=== PATIENT | female | born 1975 | race Caucasian/White ===

== ENCOUNTER 2023-06-21 18:48 | Emergency (ER) | payer OTHER, SELFPAY ==
[2023-06-21] VITALS (20 sets, daily range): BP systolic 144–190; BP diastolic 87–106; PULSE 71–84; RESP 12–26; TEMP 37.1; O2SAT 96–99; BMI 65.1
--- NOTE | 2023-06-21 18:59 | CT_ITS ---
The [address] [address] Patient Name: FERN JAY MRN: [id number] date: 1975 Sex: F Assigned Patient Location: ER Current Patient Location: ER Accession/Order Number: [id number] Exam Date: 06/21/2023 20:31 Report Date: 06/21/2023 21:24 At the request of: ABAD CARR Procedure: CT abdomen pelvis w con EXAM: CT SCAN ABDOMEN AND PELVIS WITH IV CONTRAST DATE: 06/21/2023 8:31 PM EDT HISTORY: LUQ/ Epigastric Pain in a 47-year-old female COMPARISON: CT abdomen pelvis without.09/15/2022 CT scan of the pelvis 12/30/2018 TECHNIQUE: CT examination of the abdomen and pelvis was performed following the intravenous administration of IV contrast. CT dose lowering techniques were used, to include: automated exposure control, adjustment for patient size, and/or use of iterative reconstruction. Contrast: 100 ml Isovue 370 FINDINGS: Gyro Compass Tester/ Lines and Tubes: Post op changes are demonstrated in the right upper quadrant and the lumbar spine. Lower Chest: Normal Free Air: None. Liver: The liver is enlarged measures 20 cm. In the posterior right lobe of the liver there is a hypoechoic masslike area that measures 55 x 45 cm. Gallbladder: Removed Common Bile Duct: Normal Pancreas: Normal Spleen: Enlarged with an area decreased attenuation measuring 16 mm. Adrenal Glands: Right: Normal Left: Normal Kidneys: Right Kidney: Normal. Right Ureter: Normal. Left Kidney: Normal. Left Ureter: Normal. GI Tract: Distal esophagus in FOV: Normal. Stomach: Normal Small Bowel: Normal Appendix: No secondary signs for acute appendicitis. Surgical clips seen in the right lower quadrant. Large Bowel: Normal Mesentery/Peritoneum: Normal Vasculature: Aorta: Normal. IVC: Normal. Mur[place] Vein: Normal. Retroperitoneum: Normal Abdominal/Pelvic Wall: Normal Bladder: Decompressed Reproductive: Normal Musculoskeletal: Postoperative changes seen at L4-L5 with a disc spacer. Free Fluid: None. CT/CT abdomen pelvis w con IMPRESSION: 1. Hepatosplenomegaly. Please correlate with patient's LFTs. 2. Posterior right lobe of the liver demonstrates a hypodense area of decreased attenuation which in comparison to prior exam from 2019 is relatively stable. Allowing for bolus timing this most likely represents a cystic lesion and/or hemangioma. Please correlate with patient's medical history. MRI using multiphasic liver protocol would help better delineate. 3. Cholecystectomy. 4. Fluid attenuating region in the posterior left spleen is stable compared to prior exam from 2019. Electronically authenticated by: RAEANN TRIPATHI Date: 06/21/2023 21:24
--- NOTE | 2023-06-21 19:02 | ECG_ITS ---
The [facility] Test Date: 2023-06-21 Pat Name: FERN JAY Department: Room: - Gender: Female Rn Gynecology: : 1975 Requested By: ADIEL LUX Order Number: [id number] Reading MD: BELLA COON Measurements Intervals [place] Rate: 70 P: 3 MO: 170 QRS: -15 QRSD: 94 T: -6 QT: 380 QTc: 400 Interpretive Statements [address]/T wave changes 9110 normal ECG No previous ECG available for comparison Electronically Signed On 06-22-2023 6:52:58 EDT by BELLA COON
--- NOTE | 2023-06-21 19:06 | ED_ITS ---
HPI - Abdominal Pain General Chief Complaint: Abdominal Pain Stated Complaint: ABDOMINAL PAIN Time Seen by Provider: 06/21/23 18:51 Source: patient Mode of arrival: walk-in History of Present Illness HPI narrative: 47-year-old female to the emergency department with chief complaint of left upper abdominal pain. She reports is been ongoing for three days at its current severity but has been ongoing on and off since at least . She reports that she was seen for this at that time and worked up with endoscopy and imaging and had no findings. She reports she was lost to follow-up due to [place]. She reports is recently started acting up again prompting her Emergency Department visit temitopearlyn. She reports that the pain is constant, always there. There are no aggravating or alleviating factors. There is nausea without vomiting. She believes she may have had a small amount of blood in her stool this morning. She reports normal bowel movements. She denies any fever, sweats, chills. She is not on any blood thinning medications. There is no NSAID or steroid use. Patient has an appointment with Dr. Salgado at [facility] on for this complaint. Related Data Home Medications Medication Instructions Recorded Confirmed alprazolam 0.5 mg tablet 0.5 mg PO TID PRN anxiety 06/21/23 06/21/23 amitriptyline 50 mg tablet 50 mg PO QPM 06/21/23 06/21/23 benazepril 20 mg tablet 20 mg PO DAILY 06/21/23 06/21/23 dextroamphetamine-amphetamine ER 15 mg PO DAILY 06/21/23 06/21/23 15 mg 24hr capsule,extend release gabapentin 300 mg capsule 300 mg PO QPM 06/21/23 06/21/23 levothyroxine 100 mcg tablet 100 mcg PO QAM 06/21/23 06/21/23 metoprolol tartrate 50 mg tablet 75 mg PO BID 06/21/23 06/21/23 mirabegron 50 mg tablet,extended 50 mg PO DAILY 06/21/23 06/21/23 release 24 hr (Myrbetriq) naloxone 4 mg/actuation nasal spray 4 mg intranasal Q2M PRN opioid 06/21/23 06/21/23 overdose omeprazole 40 mg capsule,delayed 40 mg PO DAILY 06/21/23 06/21/23 release oxycodone 20 mg tablet 20 mg PO Q4H PRN pain 06/21/23 06/21/23 oxycodone-acetaminophen 7.5 mg-325 1 tab PO TID PRN pain 06/21/23 06/21/23 mg tablet promethazine 25 mg tablet 25 mg PO TID PRN nausea and 06/21/23 06/21/23 vomiting tizanidine 4 mg tablet 4 mg PO DAILY PRN muscle spasticity 06/21/23 06/21/23 Previous Rx's Medication Instructions Recorded dicyclomine 20 mg tablet 20 mg PO QID PRN abdominal pain 06/21/23 #14 tabs pantoprazole 40 mg tablet,delayed 40 mg PO BID 14 days #28 tabs 06/21/23 release sucralfate 1 gram tablet (Carafate) 1 g PO TID #21 tabs 06/21/23 Allergies Allergy/AdvReac Type Severity Reaction Status Date / Time ciprofloxacin [From Cipro] Allergy Severe Verified 06/21/23 18:58 fluoxetine [From Prozac] Allergy Severe Verified 06/21/23 18:58 ketorolac [From Toradol] Allergy Severe Verified 06/21/23 18:58 ondansetron [From Zofran] Allergy Severe Verified 06/21/23 18:58 prochlorperazine Allergy Severe Verified 06/21/23 18:58 [From Compazine] Review of Systems ROS Status of ROS 10 or more systems reviewed and unremarkable except as noted in history and below Exam Narrative Exam Narrative: VITALS: I have reviewed the triage vital signs. GENERAL: Morbidly obese adult female in no acute distress. NEURO: Alert and oriented. Moves all extremities. Face is symmetric and expressive. EYES: PERRL. No scleral icterus or conjunctival injection. No discharge. HENT: Normocephalic, atraumatic. Hearing is grossly intact. Nares grossly patent and without discharge. Mucous membranes moist. NECK: No JVD. Patient moves neck without restriction. CARDIO: Rhythm regular. Normal rate. No murmur, rub, or gallop. Pulses equal bilaterally in the upper and lower extremity. No lower extremity edema. PULM: Lungs clear to auscultation in all lord. No wheezes, rales, or rhonchi. No conversational dyspnea. No splinting, stridor, or accessory muscle use. GI/: Abdomen is soft/ Epi/LUQ pain. No rebound or guarding. Normoactive bowel sounds. EXTREMITIES: Symmetric muscle bulk. No joint swelling. No clubbing, cyanosis, or deformity. SKIN: Warm and dry. Normal turgor. No rash or lesions appreciated. PSYCH: Mood, affect, and interaction is appropriate to the setting. Constitutional Vital Signs, click to edit/add: Last Vital Signs Temp 98.7 F 06/21/23 18:51 Pulse 74 06/21/23 21:00 Resp 21 06/21/23 21:00 BP 168/87 H 06/21/23 21:00 Pulse Ox 97 06/21/23 21:00 O2 Del Method Room Air 06/21/23 18:51 Course Vital Signs Vital signs: Vital Signs Temperature 98.7 F 06/21/23 18:51 Pulse Rate 84 06/21/23 18:51 Respiratory Rate 22 06/21/23 18:51 Blood Pressure 190/106 H 06/21/23 18:51 Pulse Oximetry 99 06/21/23 18:51 Oxygen Delivery Method Room Air 06/21/23 18:51 Temperature 98.7 F 06/21/23 18:51 Pulse Rate 74 06/21/23 21:00 Respiratory Rate 21 06/21/23 21:00 Blood Pressure 168/87 H 06/21/23 21:00 Pulse Oximetry 97 06/21/23 21:00 Oxygen Delivery Method Room Air 06/21/23 18:51 MDM - Abdominal Pain MDM Narrative Medical decision making narrative: Number and Complexity of Problems Differential Diagnosis: ACS, pancreatitis, gastritis, gastroparesis MDM Data External documents reviewed: Not applicable My EKG interpretation: Interpreted, as below My CT interpretation: Reviewed, as below My X-ray interpretation: Not applicable My Ultrasound interpretation: Not applicable Decision rules/scores evaluated: Not applicable Discussed with: Not applicable Treatment and Disposition ED Course: 47-year-old female with acute on chronic upper abdominal pain. Vital stable, the patient is afebrile. Mild tenderness in the abdomen without peritonitis. Medications ordered for comfort as below. CT imaging. Patient agrees with this plan. Laboratory reviewed and noted. She does have some hematuria which is mentioned to the patient and follow-up with her doctor. Labwork otherwise without major abnormalities. CT scan shows her known splenic lesion and her hepatosplenomegaly. No acute findings today to explain her symptoms. Patient reexamined. Her vitals remained stable. Her abdomen remains benign. I recommended she keep her upcoming appointment with gastrointestinal this week. We'll discontinue her Prilosec and put her on Protonix twice a day dosing. Carafate and Bentyl were prescribed. I suspect there may be a gastritis or ulcer component to her presentation today based on the symptomology. Return precautions were discussed. All questions were answered. The patient agrees with this plan. The patient was discharged home. Shared decision making: As above Code status: Not addressed during this visit Lab Data Labs: Lab Results 06/21/23 06/21/23 Range/Units 19:20 19:36 WBC 11.4 H (4.0-11.0) 10^3/uL RBC 5.40 (4.20-5.40) 10^6/uL Hgb 13.7 (12.0-16.0) g/dL Hct 44.0 (36.0-48.0) % MCV 81.5 (81.0-99.0) fL MCH 25.4 L (26.7-34.0) pg MCHC 31.1 (29.9-35.2) g/dL RDW 15.2 H (11.0-15.0) % Plt Count 308 (150-450) 10^3/uL MPV 8.8 L (9.5-13.5) fL Neut % (Auto) 61.5 (43.0-75.0) % Lymph % (Auto) 31.5 (20.5-60.0) % [place] % (Auto) 5.3 (1.7-12.0) % Eos % (Auto) 1.0 (0.9-7.0) % Baso % (Auto) 0.3 (0.2-2.0) % Neut # (Auto) 7.0 H (1.4-6.5) 10^3/uL Lymph # (Auto) 3.6 (1.2-3.8) 10^3/uL [place] # (Auto) 0.6 (0.3-0.8) 10^3/uL Eos # (Auto) 0.1 (0.0-0.7) 10^3/uL Baso # (Auto) 0.0 (0.0-0.1) 10^3/uL Abs Immat Gran (auto) 0.05 H (0.00-0.03) 10^3/uL Imm/Tot Granulo (auto) 0.4 (0.0-0.5) % Sodium 138 (136-145) mmol/L Potassium 3.9 (3.5-5.1) mmol/L Chloride 104 (98-107) mmol/L Carbon Dioxide 25.9 (21.0-32.0) mmol/L Anion Gap 12.0 BUN 19.0 H (7.0-18.0) mg/dL Creatinine 0.76 (0.55-1.02) mg/dL Est GFR ( Amer) >60 (>=60) Est GFR (Non-Af Amer) >60 (>=60) BUN/Creatinine Ratio 25.0 Glucose 97 (74-106) mg/dL Calcium 8.7 (8.5-10.1) mg/dL Total Bilirubin 0.2 (0.2-1.0) mg/dL AST 14 L (15-37) U/L ALT 28 (14-59) U/L Alkaline Phosphatase 77 (46-116) U/L Troponin I High Sens 8.8 (4.0-51.3) pg/mL Total Protein 7.6 (6.4-8.2) g/dL Albumin 3.3 L (3.4-5.0) g/dL Globulin 4.3 g/dL Albumin/Globulin Ratio 0.8 Lipase 21.0 (16.0-77.0) U/L Urine Color Yellow (YELLOW) Urine Clarity Clear (CLEAR) Urine pH 5.0 (5.0-9.0) Ur Specific [place] >=1.030 A (1.005-1.025) Urine Protein Trace (NEG/TRACE) mg/dL Urine Glucose (UA) Negative (NEGATIVE) mg/dL Urine Ketones Negative (NEGATIVE) mg/dL Urine Occult Blood Large A (NEGATIVE) Urine Nitrite Negative (NEGATIVE) Urine Bilirubin Negative (NEGATIVE) Urine Urobilinogen 1.0 (0.2-1.0) EU/dL Ur Leukocyte Esterase Negative (NEGATIVE) Urine RBC 50-75 A (0-2) #/HPF Urine WBC 0-2 A (NONE SEEN) #/HPF Ur Squamous Epith Cells Many A (NONE/RARE) #/LPF Urine Crystals None seen (None Seen) #/HPF Urine Bacteria Moderate A (NONE SEEN) #/HPF Urine Casts None seen (NONE SEEN) #/LPF Urine Mucus Small A (NONE SEEN) Ur Culture Indicated? Yes Discharge Plan Discharge Chief Complaint: Abdominal Pain Clinical Impression: Abdominal pain Time of Disposition Decision: 22:11 Condition: Good Mode of Transportation: Private Vehicle Prescriptions / Home Meds: New sucralfate [Carafate] 1 gram tablet 1 g PO TID Qty: 21 0RF pantoprazole 40 mg tablet,delayed release (DR/EC) 40 mg PO BID 14 Days Qty: 28 0RF dicyclomine 20 mg tablet 20 mg PO QID PRN (Reason: abdominal pain) Qty: 14 0RF No Action alprazolam 0.5 mg tablet 0.5 mg PO TID PRN (Reason: anxiety) amitriptyline 50 mg tablet 50 mg PO QPM benazepril 20 mg tablet 20 mg PO DAILY dextroamphetamine-amphetamine 15 mg capsule,extended release 24hr 15 mg PO DAILY gabapentin 300 mg capsule 300 mg PO QPM levothyroxine 100 mcg tablet 100 mcg PO QAM metoprolol tartrate 50 mg tablet 75 mg PO BID Myrbetriq 50 mg tablet extended release 24 hr 50 mg PO DAILY naloxone 4 mg/actuation spray,non-aerosol 4 mg INTRANASAL Q2M PRN (Reason: opioid overdose) omeprazole 40 mg capsule,delayed release(DR/EC) 40 mg PO DAILY oxycodone 20 mg tablet 20 mg PO Q4H PRN (Reason: pain) oxycodone-acetaminophen 7.5-325 mg tablet 1 tab PO TID PRN (Reason: pain) promethazine 25 mg tablet 25 mg PO TID PRN (Reason: nausea and vomiting) tizanidine 4 mg tablet 4 mg PO DAILY PRN (Reason: muscle spasticity) Print Language: Monegasque Instructions: Gastritis (ED) Additional Instructions: Follow-up with Dr. Salgado as planned on . Stop Prilosec and start Protonix. Stand Alone Forms: Portal Instructions Referrals: Mary Ellen Fairbanks MD [Primary Care Provider] - 1 week
[2023-06-21] MEDS: 0.9 % SODIUM CHLORIDE 1,000 ML 999 ML IV (19:32)
[2023-06-21] MEDS: PROMETHAZINE HCL 25 MG/ML VIAL 12.5 MG IV (19:32)
[2023-06-21] MEDS: FAMOTIDINE/PF 20 MG/2 ML VIAL IV (19:32)
[2023-06-21] MEDS: MORPHINE SULFATE 2 MG/ML SYRINGE 6 MG IV (19:37)
[2023-06-21 19:46] LABS: Basophils Percent Auto 0.3 % (0.2-2.0); Eosinophils Absolute Auto 0.1 10^3/uL (0.0-0.7); Hemoglobin 13.7 g/dL (12.0-16.0); Immature Granulocytes Abs Auto 0.05 10^3/uL (0.00-0.03); Immature Granulocytes Pct Auto 0.4 % (0.0-0.5); Lymphocytes Absolute Auto 3.6 10^3/uL (1.2-3.8); Lymphocytes Percent Auto 31.5 % (20.5-60.0); Mean Corpuscular HGB Conc 31.1 g/dL (29.9-35.2); Mean Corpuscular Hemoglobin 25.4 pg (26.7-34.0); Mean Corpuscular Volume 81.5 fL (81.0-99.0); Mean Platelet Volume 8.8 fL (9.5-13.5); Monocytes Absolute Auto 0.6 10^3/uL (0.3-0.8); Monocytes Percent Auto 5.3 % (1.7-12.0); Neutrophils Percent Auto 61.5 % (43.0-75.0); Platelet Count 308 10^3/uL (150-450); Red Cell Distribution Width 15.2 % (11.0-15.0); White Blood Count 11.4 10^3/uL (4.0-11.0)
[2023-06-21 19:47] LABS: Bilirubin Urine NEGATIVE (NEGATIVE); Blood Urine LARGE (NEGATIVE); Clarity Urine CLEAR (CLEAR); Color Urine YELLOW (YELLOW); Glucose Urine UA NEGATIVE (NEGATIVE); Ketones Urine NEGATIVE (NEGATIVE); Leukocyte Esterase Urine NEGATIVE (NEGATIVE); Nitrite Urine NEGATIVE (NEGATIVE); Protein Urine TRACE mg/dL (NEG/TRACE); Specific Gravity Urine >=1.030 (1.005-1.025); Urine Microscopic Indicated YES
[2023-06-21 19:56] LABS: Bacteria Urine MODERATE #/HPF (NONE SEEN); Cast Seen? NONE SEEN #/LPF (NONE SEEN); Crystals Seen? None Seen #/HPF (None Seen); Mucus Urine SMALL (NONE SEEN); RBC Urine 50-75 #/HPF (0-2); Squamous Epithelial Cell Urine MANY #/LPF (NONE/RARE); Urine Culture Indicated YES; WBC Urine 0-2 #/HPF (NONE SEEN)
[2023-06-21 20:08] LABS: Alanine Aminotransferase 28 U/L (14-59); Albumin Globulin Ratio 0.8; Albumin Level 3.3 g/dL (3.4-5.0); Alkaline Phosphatase 77 U/L (46-116); Aspartate Amino Transferase 14 U/L (15-37); Bilirubin Total 0.2 mg/dL (0.2-1.0); Calcium 8.7 mg/dL (8.5-10.1); Carbon Dioxide 25.9 mmol/L (21.0-32.0); Chloride 104 mmol/L (98-107); Estimated GFR (African America >60 (>=60); Estimated GFR (Non-African Ame >60 (>=60); Globulin 4.3 g/dL; Glucose 97 mg/dL (74-106); Potassium 3.9 mmol/L (3.5-5.1); Sodium 138 mmol/L (136-145); Total Protein 7.6 g/dL (6.4-8.2); Troponin I High Sensitivity 8.8 pg/mL (4.0-51.3)
--- NOTE | 2023-06-21 20:09 | PC.NURSE ---
pt presents to ED because patient states that for the last 3 days she has had severe left upper quadrant abdominal pain. pt d/o nausea but no vomiting. pt states there was blood in her urine today, has hx of kidney stones, normal bowel movements. patient states that she had this happen before in 2018/2019 and had imaging and blood work done and was told everything looked good and that she had a hernia. pt does have appointment with GI doctor out of [place] in 2 days.
[2023-06-21] MEDS: MORPHINE SULFATE 4 MG/ML VIAL IV (21:01)
== END 2023-06-21 22:23 | disposition home or self-care (01) ==
PROVIDERS: Emergency Provider Student in an Organized Health Care Education/Training Program; PCP Family Medicine
DX: R10.9 Unspecified abdominal pain (principal); G89.29 Other chronic pain; E66.01 Morbid (severe) obesity due to excess calories; Z68.44 Body mass index [BMI] 60.0-69.9, adult; Z79.899 Other long term (current) drug therapy; Z79.890 Hormone replacement therapy
CPT/HCPCS: 36415; 74177; 80053; 81001; 83690; 84484; 85025; 87086; 93005; 96374; 96375; 96376; 99285; Q9967

== ENCOUNTER 2023-07-28 14:26 | Outpatient (OUT) | payer OTHER, SELFPAY ==
[2023-07-28 14:59] LABS: Basophils Percent Auto 0.2 % (0.2-2.0); Eosinophils Absolute Auto 0.1 10^3/uL (0.0-0.7); Eosinophils Percent Auto 0.7 % (0.9-7.0); Hematocrit 44.4 % (36.0-48.0); Hemoglobin 13.4 g/dL (12.0-16.0); Immature Granulocytes Abs Auto 0.04 10^3/uL (0.00-0.03); Immature Granulocytes Pct Auto 0.4 % (0.0-0.5); Lymphocytes Absolute Auto 3.1 10^3/uL (1.2-3.8); Lymphocytes Percent Auto 28.9 % (20.5-60.0); Mean Corpuscular HGB Conc 30.2 g/dL (29.9-35.2); Mean Platelet Volume 8.7 fL (9.5-13.5); Monocytes Absolute Auto 0.6 10^3/uL (0.3-0.8); Monocytes Percent Auto 5.8 % (1.7-12.0); Neutrophils Absolute Auto 6.9 10^3/uL (1.4-6.5); Platelet Count 284 10^3/uL (150-450); Red Blood Count 5.35 10^6/uL (4.20-5.40); Red Cell Distribution Width 15.4 % (11.0-15.0); White Blood Count 10.7 10^3/uL (4.0-11.0)
[2023-07-28 15:02] LABS: Estimated Average Glucose 114 mg/dL; Glycohemoglobin A1C 5.6 % (4.5-6.2)
[2023-07-28 15:42] LABS: Anion Gap 14.6; BUN Creatinine Ratio 30.4; Calcium 8.9 mg/dL (8.5-10.1); Carbon Dioxide 27.7 mmol/L (21.0-32.0); Chloride 103 mmol/L (98-107); Estimated GFR (African America >60 (>=60); Estimated GFR (Non-African Ame >60 (>=60); Glucose 87 mg/dL (74-106); Potassium 4.3 mmol/L (3.5-5.1); Sodium 141 mmol/L (136-145); Thyroid Stimulating Hormone 4.097 uIU/mL (0.358-3.740)
[2023-07-28 16:19] LABS: Free T4 1.05 ng/dL (0.76-1.46)
== END 2023-07-28 14:27 | disposition home or self-care (01) ==
LOC: LAB 14:27
PROVIDERS: PCP Family Medicine; Visit Provider Family Medicine
DX: R73.09 Other abnormal glucose (principal); E03.9 Hypothyroidism, unspecified; I10 Essential (primary) hypertension
CPT/HCPCS: 36415; 80048; 83036; 84439; 84443; 85025

== ENCOUNTER 2023-09-20 16:26 | Emergency (ER) | payer OTHER, SELFPAY ==
[2023-09-20 16:37] VITALS: BP 208/72; PULSE 64; RESP 20; TEMP 36.9; O2SAT 96; BMI 65.0
--- OUTSIDE RECORDS SUMMARY | 2023-09-20 16:47 | XMS_ITS | CCD ---
Author Name Unknown Address [address] [place] [address] Organization [facility] Care Team Providers Care Capacity Analyst Name Role Phone CANDACE QUINONEZIF Referring Unavailable ADIEL LUX Primary Care Unavailable ADIEL LUX Referring Unavailable ADIEL LUX Primary Care Unavailable UNKNOWN, PROVIDER Admitting Unavailable UNKNOWN, PROVIDER Attending Unavailable ADIEL LUX Referring Unavailable ADIEL LUX Primary Care Unavailable Adiel Lux MD Primary Care Provider [phone] Adiel Lux MD Unavailable [phone] ADIEL LUX Primary Care Unavailable Unlisted, Physician Attending Unavailable MACI, DR ADIEL Camp Primary Care Unavailable JASMIN, DR STEELE Admitting Unavailable JASMIN, DR STEELE Attending Unavailable PAY, DR BECERRA Consulting Unavailable JASMIN, DR STEELE Consulting Unavailable STRAWSER, DIPESH Consulting Unavailable MACI, DR ADIEL Camp Admitting Unavailable MACI, DR ADIEL Camp Attending Unavailable MACI, DR ADIEL Camp Primary Care Unavailable Adiel Lux Unavailable Adiel Lux MD Primary Care Provider [phone] Adiel Lux MD Unavailable [phone] Adiel Lux MD Unavailable [phone] FARHAT JORDAN Attending Unavailable ADIEL LUX Referring Unavailable ADIEL LUX Primary Care Unavailable Jeyson Alcantar Unavailable ADIEL LUX Primary Care Physician Gabriel Fournier Attending Unavailable Nicole Carlton Attending Unavailable Allergies Allergy Classification Reported Allergen(s) Allergy Type Date of Onset Reaction(s) Facility (20 sources) Ciprofloxacin; Translations: [CIPROFLOXACIN] Drug Allergy 014 Unknown [facility] Repository (1 source) FLUoxetine Drug Allergy 018 [facility] Repository (1 source) gabapentin Drug Allergy 018 [facility] Repository (20 sources) Ketorolac; Translations: [Toradol] Drug Allergy 010 rash [facility] Repository (1 source) methylPREDNISolone Drug Allergy 017 [facility] Repository (20 sources) Prochlorperazine; Translations: [Compazine] Drug Allergy 013 rash [facility] Repository (3 sources) PAPER TAPE; Translations: [paper tape] Drug allergy (disorder) skin irriation [facility] Repository (3 sources) Adhesive Tape; Translations: [ADHESIVE TAPE (ROSINS)] Allergy to substance Other: See Comments [facility] (20 sources) Aspirin; Translations: [ASPIRIN] Drug Allergy 010 migraines [facility] (20 sources) Ciprofloxacin; Translations: [ciprofloxacin] Drug Allergy 016 Swelling [facility] (3 sources) Ketorolac; Translations: [KETOROLAC TROMETHAMINE] Drug Allergy 010 Swelling, Itching [facility] (3 sources) methylPREDNISolone; Translations: [METHYLPREDNISOLONE SODIUM SUCC] Drug Allergy 016 Shortness of Breath [facility] (2 sources) Ciprofloxacin; Translations: [Cipro] Drug Allergy 014 [facility] Repository (3 sources) methylPREDNISolone; Translations: [Solu-MEDROL] Drug Allergy 013 [facility] Repository (1 source) venlafaxine Drug Allergy [facility] Repository (20 sources) FLUoxetine Drug Allergy Unknown [facility] Other (20 sources) gabapentin Drug Allergy 017 NAUSEA [facility] Other (19 sources) meloxicam Drug Allergy 018 Unknown [facility] Other (20 sources) methylPREDNISolone; Translations: [methylprednisolone] Drug Allergy 014 Unknown, hives [facility] (19 sources) topiramate Drug Allergy 018 Unknown [facility] Other (19 sources) varenicline Drug Allergy 015 Unknown [facility] Other (19 sources) venlafaxine Drug Allergy 019 Unknown [facility] Other (19 sources) Toradol *ANALGESICS - ANTI-INFLAMMATORY* Propensity to adverse reactions 014 Unknown [facility] Other (11 sources) Allergies Reconciled Propensity to adverse reactions 021 Unknown [facility] Other (19 sources) Compazine *ANTIPSYCHOTICS/ANTIM ANIC AGENTS* Propensity to adverse reactions 014 Unknown [facility] Other (11 sources) patient allergy list reviewed by nurse or physicia Propensity to adverse reactions 017 Comment:Done [facility] Other (1 source) Ketorolac; Translations: [ketorolac] Drug Allergy [facility] (1 source) Prochlorperazine; Translations: [prochlorperazine] Drug Allergy [facility] (2 sources) Silk adhesive tape; Translations: [silk tape] Drug allergy skin irriation [facility] Medications Current Medications Medication Drug Class(es) Dates Sig (Normalized) Sig (Original) acetaminophen 325 mg / oxyCODONE hydrochloride 7.5 mg oral tablet (20 sources) Opioid Agonist Start: 09-05-2023 take 1 tablet by mouth three times daily for pain oxyCODONE-Acetami nophen 7.5-325 MG take 1 tablet by mouth three times a day if needed for pain for 30 Aug, Active Start: 07-05-2023 take 1 tablet by eyad th three times daily for pain oxyCODONE-Acetaminophen 7.5-325 MG take 1 tablet by mouth three times a day if needed for pain for 30 Jul, Active Start: 06-07-2023 take 1 tablet by eyad th three times daily for pain oxyCODONE-Acetaminophen 7.5-325 MG take 1 tablet by mouth three times a day if needed for pain for 30 May, Active Start: 05-09-2023 take 1 tablet by eyad th three times daily for pain oxyCODONE-Acetaminophen 7.5-325 MG take 1 tablet by mouth three times a day if needed for pain for 30 Apr, Active Start: 04-07-2023 take 1 tablet by eyad th three times daily for pain oxyCODONE-Acetaminophen 7.5-325 MG take 1 tablet by mouth three times a day if needed for pain for 30 Mar, Active Start: 03-10-2023 take 1 tablet by eyad th three times daily for pain oxyCODONE-Acetaminophen 7.5-325 MG take 1 tablet by mouth three times a day if needed for pain for 30 Feb, Active Start: 02-08-2023 take 1 tablet by eyad th three times daily for pain oxyCODONE-Acetaminophen 7.5-325 MG take 1 tablet by mouth three times a day if needed for pain for 30 January, Active Start: 01-10-2023 take 1 tablet by eyad th three times daily for pain oxyCODONE-Acetaminophen 7.5-325 MG take 1 tablet by mouth three times a day if needed for pain for 30 days Due around Dec, Active Start: 11-15-2022 take 1 tablet by eyad th three times daily for pain oxyCODONE-Acetaminophen 7.5-325 MG take 1 tablet by mouth three times a day if needed for pain for 30 days Due around Nov, Active Start: 02-10-2016 take 1 tablet by eyad th every six hours as needed oxyCODONE-acetaminophen (PERCOCET 10) 10-325 mg tablet 1 tablet every 6 hours as needed. 0 02/10/2016 Active Comment on above: 1 tablet every 6 dionna rs as needed. ALPRAZolam 0.5 mg oral tablet (20 sources) Benzodiazepine Start: take 1 tablet by mouth three times daily ALPRAZolam 0.5 MG take 1 tablet by mouth three times a day if needed for Aug, Active Start: 06-02-2023 take 1 tablet by eyad th three times daily ALPRAZolam 0.5 MG take 1 tablet by mouth three times a day if needed for May, Active Start: 01-28-2016 take 1 tablet by eyad three times daily ALPRAZolam 0.5 MG take tablet by mouth three times a day if needed for 14 16 Apr, 2023 Active Comment on above: 0.5 mg three times d aily. 24 hr amphetamine aspartate 3.75 mg / amphetamine sulfate 3.75 mg / dextroamphetamine saccharate 3.75 mg / dextroamphetamine sulfate 3.75 mg extended release oral capsule (20 sources) Central Nervous System Stimulant Start: take 1 capsule by mouth once daily Amphetamine-Dext roamphet ER 15 MG take 1 capsule by mouth once daily for 30 DAYS for 30 18 Aug, 2023 Active Start: 07-05-2023 take 1 capsule by mo [facility] once daily Amphetamine-Dextroamphet ER 15 MG take 1 capsule by mouth once daily for 30 DAYS for 30 17 Jun, 2023 Active Start: 06-07-2023 take 1 capsule by mo [facility] once daily Amphetamine-Dextroamphet ER 15 MG take 1 capsule by mouth once daily for 30 DAYS for 30 May, Active Start: 05-07-2023 take 1 capsule by mo [facility] once daily Amphetamine-Dextroamphet ER 15 MG take 1 capsule by mouth once daily for 30 DAYS for 30 Apr, Active Start: 03-29-2023 take 1 capsule by mo [facility] once daily Amphetamine-Dextroamphet ER 15 MG take 1 capsule by mouth once daily for 30 DAYS for 30 Mar, Active Start: 03-01-2023 take 1 capsule by mo [facility] once daily Amphetamine-Dextroamphet ER 15 MG take 1 capsule by mouth once daily for 30 DAYS for 30 Feb, Active Start: 02-08-2023 take 1 capsule by mo [facility] once daily Amphetamine-Dextroamphet ER 15 MG take 1 capsule by mouth once daily for 30 DAYS for 30 January, Active Start: 01-10-2023 take 1 capsule by mo [facility] once daily Amphetamine-Dextroamphet ER 15 MG take 1 capsule by mouth once daily for 30 days Due around 12/13Dec, Active Start: 11-15-2022 take 1 capsule by mo [facility] once daily Amphetamine-Dextroamphet ER 15 MG take 1 capsule by mouth once daily for 30 days Due around 12/13Nov, Active benazepril hydrochloride 20 mg oral tablet (20 sources) Angiotensin Converting Enzyme Inhibitor take 1 tablet by mouth every twenty-four hours Benazepril HCl 20 MG 1 tablet Orally Once a day for 90 days Active benzapril (1 source) Start: take 10 mg by mouth once daily benzapril benzapril, 10 mg, Oral, Daily Start Date: 08/31/16 Status: Ordered brexpiprazole 0.5 mg oral tablet (20 sources) Atypical Antipsychotic Start: take 1 tablet by mouth every twenty-four hours Rexulti 0.5 MG 1 tablet Orally Once a day for 30 days Feb, Active buPROPion hydrochloride 75 mg oral tablet (1 source) Aminoketone Start: take 1 tablet by mouth twice daily Wellbutrin 75 mg Tab 75 mg = 1 tab(s), Oral, BID, Refills(s) 0, Depression Start Date: 08/17/16 Status: Ordered citalopram 20 mg oral tablet (7 sources) Serotonin Reuptake Inhibitor Start: take 1 tablet by mouth every twenty-four hours Citalopram Hydrobromide 20 MG 1 tablet Orally Once a day for 30 day(s) Jul, Active diazePAM 2 mg oral tablet (1 source) Benzodiazepine Start: take 1 tablet by mouth every four hours as needed for anxiety Valium 2 mg Tab 2 mg = 1 tab(s), Oral, q4hr, PRN as needed for anxiety, Refills(s) 0 Start Date: 08/17/16 Status: Ordered dicyclomine hydrochloride 10 mg oral capsule (1 source) Anticholinergic Start: End: take 1 capsule by mouth four times daily Bentyl 10 mg Cap 10 mg = 1 cap(s), Oral, QID, X 10 day(s), # 40 cap(s), Refills(s) 0, [facility]: [id number], 175, cm, 05/02/23 17:29:00 EDT, Height/Length Dosing, 210, kg, 05/02/23 17:29:00 EDT, Weight Dosing Start Date: 05/02/23 Stop Date: 05/12/23 Status: Ordered gabapentin 300 mg oral capsule (11 sources) Anti-epileptic Agent take 1 capsule by mouth at bedtime Gabapentin 300 MG take 1 capsule by mouth at bedtime for 30 Active Synthroid (20 sources) l-Thyroxine Start: 016 take 1 tablet by mouth once daily Synthroid 1 tablet, Oral, Daily, Refills(s) 0, Thyroid Start Date: 03/02/16 Status: Ordered Start: 02-16-2016 levothyroxine (SYNTHROID) 100 mcg tablet 100 mcg once daily. 0 02/16/2016 Active take 1 tablet by eyad th once daily in the morning Levothyroxine Sodium 125 MCG 1 tablet in the morning on an empty stomach Orally Once a day for 90 days Active take 1 tablet by eyad th once daily in the morning Levothyroxine Sodium 125 MCG 1 tablet in the morning on an empty stomach Orally Once a day for 90 days Active take 1 tablet by eyad th once daily in the morning Levothyroxine Sodium 100 MCG 1 tablet in the morning on an empty stomach Orally Once a day for 90 days Active Comment on above: 100 mcg once daily. 24 hr mirabegron 50 mg extended release oral tablet (20 sources) beta3-Adrenergic Agonist Start: 02-22-2023 take 1 tablet by mouth every twenty-four hours Myrbetriq 50 MG 1 tablet Orally Once a day for 30 days Feb, Active omeprazole 40 mg delayed release oral capsule (20 sources) Proton Pump Inhibitor Start: 03-02-2016 take 1 capsule by mouth once daily at bedtime Prilosec 40 mg Cap-EC 40 mg = 1 cap(s), Oral, Once a day (at bedtime), Refills(s) 0, Control of stomach acid Start Date: 03/02/16 Status: Ordered Start: 12-09-2009 omeprazole(DARION LOSEC 10 MG CAP) Take one(1) capsule daily. 0 12/09/2009 Active Comment on above: Take one(1) capsule daily. ondansetron 4 mg oral tablet (1 source) Serotonin-3 Receptor Antagonist Start: 6 take 4 mg by mouth every six hours as needed for nausea Zofran 4 mg, Oral, q6hr, PRN as needed for nausea/vomiting, Refills(s) 0 Start Date: 08/31/16 Status: Ordered 24 hr oxybutynin chloride 10 mg extended release oral tablet (20 sources) Cholinergic Muscarinic Antagonist Start: 6 take 1 tablet by mouth three times daily oxybutynin 10 mg ER Tab 10 mg = 1 tab(s), Oral, TID, Refills(s) 0 Start Date: 03/02/16 Status: Ordered Start: 02-17-2016 oxybutynin (DI TROPAN) 5 mg tablet 10 mg twice daily. 0 02/17/2016 Active take 1 tablet by eyad th twice daily Oxybutynin Chloride 10 mg 1 tablet Orally Twice a day Active Comment on above: 10 mg twice daily. oxyCODONE hydrochloride 20 mg oral tablet (20 sources) Opioid Agonist Start: 08-26-2023 oxyCODONE HCl 20 MG take 1 tablet by mouth every 4 hours if needed *MUST LAST 30 DAYS for 30 Aug, Active Start: 08-26-2023 oxyCODONE HCl 20 MG take 1 tablet by mouth every 4 hours if needed *MUST LAST 30 DAYS for 30 Aug, Active Start: 08-26-2023 oxyCODONE HCl 20 MG take 1 tablet by mouth every 4 hours if needed *MUST LAST 30 DAYS for 30 Aug, Active Start: 07-29-2023 oxyCODONE HCl 20 MG take 1 tablet by mouth every 4 hours if needed *MUST LAST 30 DAYS for 30 Jul, Active Start: 06-30-2023 oxyCODONE HCl 20 MG take 1 tablet by mouth every 4 hours if needed *MUST LAST 30 DAYS for 30 Jun, Active Start: 05-31-2023 oxyCODONE HCl 20 MG take 1 tablet by mouth every 4 hours if needed MUST LAST 30 DAYS for 30 May, Active Start: 05-07-2023 take 1 tablet by eyad th every four hours as needed oxyCODONE HCl 20 MG 1 tablet Orally every 4 hrs, as needed for 30 days Apr, Active Start: 08-17-2016 take 1 tablet by eyad th every four hours as needed oxyCODONE HCl 20 MG 1 tablet Orally every 4 hrs, as needed for 30 days Apr, Active promethazine hydrochloride 25 mg oral tablet (20 sources) Phenothiazine Start: 08-31-2016 take 25 mg by mouth every six hours as needed for nausea Phenergan 25 mg, Oral, q6hr, PRN as needed for nausea/vomiting, Refills(s) 0 Start Date: 08/31/16 Status: Ordered take 1 tablet by eyad th three times daily Promethazine HCl 25 MG take 1 tablet by mouth three times a day if needed for 30 Active rivaroxaban 20 mg oral tablet (1 source) Factor Xa Inhibitor Start: 08-17-2016 take 1 tablet by mouth once daily in the evening Xarelto 20 mg oral tablet 20 mg = 1 tab(s), Oral, qPM, Refills(s) 0, Blood Thinner Start Date: 08/17/16 Status: Ordered tiZANidine 4 mg oral tablet (20 sources) Central alpha-2 Adrenergic Agonist Start: 03-02-2016 take 2 tablets by mouth twice daily Zanaflex 4 mg Tab 8 mg = 2 tab(s), Oral, BID, Refills(s) 0, Muscle pain Start Date: 03/02/16 Status: Ordered Start: 02-22-2016 take 1 tablet by eyad th every six hours as needed tiZANidine (ZANAFLEX) 4 mg tablet 4 mg four times daily as needed. 0 02/22/2016 Active Start: 12-09-2009 tizanidine hcl (ZANAFLEX 2 MG CAP) take 1 tablet by eyad th once daily tiZANidine HCl 4 MG take 1 tablet by mouth once daily if needed for 30 Active Comment on above: 4 mg four times юлия y as needed. Zofran ODT 4 mg Tab-Dis (1 source) Start: 05-02-2023 take 1 tablet by mouth every eight hours as needed for nausea Zofran ODT 4 mg Tab-Dis 4 mg = 1 tab(s), Oral, q8hr, PRN Nausea/Vomiting, # 12 tab(s), Refills(s) 0, Pharmacy: [facility] #[id number], 175, cm, 05/02/23 17:29:00 EDT, Height/Length Dosing, 210, kg, 05/02/23 17:29:00 EDT, Weight Dosing Start Date: 05/02/23 Status: Ordered Completed/Discontinued Medications Medication Drug Class(es) Dates Sig (Normalized) Sig (Original) amitriptyline hydrochloride 25 mg oral tablet (20 sources) Tricyclic Antidepressant Start: 12-09-2009 AMITRIPTYLINE 25 MG TAB Take one(1) tablet at bedtime. 30 2 12/09/2009 Active take 1 tablet by mouth at bedtim e Amitriptyline HCl 50 MG take 1 tablet by mouth at bedtime 30 for 30 Active Comment on above: Take one(1) tablet a t bedtime. Aspir-81 81 MG (20 sources) take 1 tablet by mouth once daily as needed Aspir-81 81 MG 1 tablet Orally Once a day Not-Taking/PRN take 1 tablet by mouth once юлия y Aspir-81 81 MG 1 tablet Orally Once a day Not-Taking atenolol 25 mg oral tablet (2 sources) beta-Adrenergic Ye Start: 12-09-2009 ATENOL OL 25 MG TAB Take one(1) tablet daily. 0 12/09/2009 Active Comment on above: Take one(1) tablet d aily. FLUoxetine 20 mg oral capsule (2 sources) Serotonin Reuptake Inhibitor Start: 02-16-2016 FLUoxetine (PROZAC) 20 mg capsule 40 mg daily at bedtime. 0 02/16/2016 Active Comment on above: 40 mg daily at bedti me. metoprolol tartrate 100 mg oral tablet (20 sources) beta-Adrenergic Ye Start: 01-26-2016 metopr olol tartrate, short acting, (LOPRESSOR) 100 mg tablet 100 mg twice daily. 0 01/26/2016 Active Metoprolol Tartr ate 50 MG take 1 AND 1/2 tablets by mouth twice a day Active Comment on above: 100 mg twice daily. Problems Active Problems Problem Classification Problem Date Documented Da te Episodic/Chronic Abdominal pain (20 sources) Unspecified abdominal pain; Translations: [Right upper quadrant pain] Onset: 12-18-2013 Episodic Anxiety disorders (20 sources) Mixed anxiety and depressive disorder; Translations: [Anxiety disorder, unspecified] Onset: 12-07-2018 03-03-2016 Chronic Attention-deficit, conduct, and disruptive behavior disorders (20 sources) Adult attention deficit hyperactivity disorder ; Translations: [Attention-deficit hyperactivity disorder, unspecified type] Chronic Attention-deficit, conduct, and disruptive behavior disorders (2 sources) Attention-deficit hyperactivity disorder, unspecified type Chronic Calculus of urinary tract (1 source) Kidney stone 03-03-2016 Episodic Cardiac dysrhythmias (11 sources) Cardiac arrhythmia; Translations: [Cardiac arrhythmia, unspecified] Onset: 09-22-2017 Chronic Chronic obstructive pulmonary disease and bronchiectasis (20 sources) Bronchitis; Translations: [Bronchitis, not specified as acute or chronic] Episodic Chronic ulcer of skin (20 sources) 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; Translations: [Pressure ulcer of buttock] Chronic Conditions associated with dizziness or vertigo (1 source) Aural vertigo, right ear Episodic Esophageal disorders (15 sources) Gastro-esophageal reflux disease without esophagitis; Translations: [Gastro-esophageal reflux disease with esophagitis] Onset: 09-17-2022 Chronic Esophageal disorders (20 sources) Esophageal disorders; Translations: [Gastroesophageal reflux disease with esophagitis without hemorrhage] Essential hypertension (20 sources) Essential (primary) hypertension; Translations: [Essential hypertension] Onset: 01-09-2014 12-30-2015 Chronic Gastrointestinal hemorrhage (20 sources) Rectal hemorrhage; Translations: [Hemorrhage of anus and rectum] Onset: 05-10-2016 Episodic Genitourinary symptoms and ill-defined conditions (20 sources) Urinary incontinence; Translations: [Unspecified urinary incontinence] Onset: 07-02-2014 03-03-2016 Chronic Headache; including migraine (2 sources) Migraine; Translations: [Migraine, unspecified, not intractable, without status migrainosus] 03-03-2016 Chronic Influenza (11 sources) Influenza due to Influenza A virus with upper respiratory signs; Translations: [Influenza due to other identified influenza virus with other respiratory manifestations] Episodic Menopausal disorders (1 source) Hormone replacement therapy; Translations: [HORMONE REPLACEMENT THERAPY] Onset: 09-17-2022 Episodic Mood disorders (20 sources) Recurrent major depressive episodes, moderate ; Translations: [Major depressive disorder, recurrent, moderate] Onset: 03-16-2016 Chronic Mycoses (11 sources) Candidiasis of skin and nails; Translations: [Candidiasis of skin and nail] Episodic Nausea and vomiting (20 sources) Vomiting, unspecified; Translations: [Nausea] Onset: 09-07-2016 Episodic Nutritional deficiencies (1 source) Vitamin D deficiency, unspecified; Translations: [VITAMIN D DEFICIENCY UNSPECIFIED] Onset: 09-17-2022 Chronic Other aftercare (1 source) 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; Translations: [[employer] CURRENT DRUG THERAPY] Onset: 09-17-2022 Episodic Other circulatory disease (11 sources) Presence of other vascular implants and grafts; Translations: [Presence of other vascular implants and grafts] Onset: 07-06-2016 Chronic Other circulatory disease (11 sources) Elevated blood-pressure reading without diagnosis of hypertension; Translations: [Elevated blood-pressure reading, without diagnosis of hypertension] Episodic Other connective tissue disease (1 source) History of lumbar fusion; Translations: [Arthrodesis status] Episodic Other diseases of bladder and urethra (20 sources) Bladder muscle dysfunction - overactive; Translations: [Overactive bladder] Chronic Other diseases of bladder and urethra (2 sources) Overactive bladder Chronic Other diseases of bladder and urethra (11 sources) Functional disorder of bladder; Translations: [Other functional disorder of bladder] Onset: 02-15-2014 Chronic Other diseases of bladder and urethra (11 sources) Overactive bladder; Translations: [Overactive bladder] Chronic Other ear and sense organ disorders (11 sources) Hearing loss; Translations: [Unspecified hearing loss, unspecified ear] Onset: 10-25-2018 Chronic Other ear and sense organ disorders (11 sources) Otitis externa of right ear; Translations: [Unspecified otitis externa, right ear] Chronic Other ear and sense organ disorders (20 sources) Tinnitus; Translations: [Tinnitus, unspecified ear] Episodic Other ear and sense organ disorders (1 source) Tinnitus, unspecified ear Episodic Other endocrine disorders (20 sources) Hypoglycemia; Translations: [Hypoglycemia, unspecified] Chronic Other gastrointestinal disorders (1 source) Splenomegaly, not elsewhere classified; Translations: [SPLENOMEGALY NEC] Onset: 09-17-2022 Episodic Other nervous system disorders (2 sources) Piriformis syndrome; Translations: [Lesion of sciatic nerve, unspecified lower limb] Onset: 12-09-2009 12-09-2009 Chronic Other nervous system disorders (13 sources) Benign intracranial hypertension; Translations: [Benign intracranial hypertension] Onset: 06-24-2015 03-03-2016 Chronic Other nervous system disorders (2 sources) Chronic pain syndrome; Translations: [Chronic pain syndrome] 03-03-2016 Chronic Other nervous system disorders (20 sources) Chronic pain; Translations: [Other chronic pain] Chronic Other nervous system disorders (11 sources) Reduced concentration; Translations: [Attention and concentration deficit] Chronic Other nutritional; endocrine; and metabolic disorders (15 sources) Morbid obesity; Translations: [Morbid (severe) obesity due to excess calories] Onset: 12-09-2009 12-09-2009 Chronic Other nutritional; endocrine; and metabolic disorders (1 source) Morbid (severe) obesity due to excess calories; Translations: [MORBID SEVERE OBES D/T EXCESS ANDRÉS] Onset: 09-17-2022 Chronic Other nutritional; endocrine; and metabolic disorders (1 source) Body mass index (BMI) 60.0-69.9, adult; Translations: [BODY MASS INDEX BMI 60.0-69.9 ADULT] Onset: 09-17-2022 Chronic Other nutritional; endocrine; and metabolic disorders (11 sources) Body mass index 40+ - severely obese; Translations: [Body mass index (BMI) 60.0-69.9, adult] Chronic Other skin disorders (11 sources) Localized swelling, mass and lump, left upper limb; Translations: [Localized swelling, mass and lump, left upper limb] Episodic Other skin disorders (11 sources) Acne; Translations: [Acne, unspecified] Episodic Other upper respiratory disease (11 sources) Allergic rhinitis; Translations: [Allergic rhinitis, unspecified] Onset: 01-09-2014 Chronic Other upper respiratory infections (11 sources) Chronic sinusitis; Translations: [Chronic sinusitis, unspecified] Chronic Residual codes; unclassified (1 source) Acquired absence of other specified parts of digestive tract; Translations: [ACQ ABSENCE OTH PART DIGESTV TRACT] Onset: 09-17-2022 Episodic Residual codes; unclassified (1 source) Acquired absence of both cervix and uterus; Translations: [ACQUIRED ABSENCE BOTH CERVIX AND UTERUS] Onset: 09-17-2022 Episodic Residual codes; unclassified (1 source) Acquired absence of ovaries, unilateral; Translations: [ACQUIRED ABSENCE OVARIES UNILATERAL] Onset: 09-17-2022 Episodic Residual codes; unclassified (20 sources) Family history of polyp of colon; Translations: [Family history of colonic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 Normal 1.4 - 4.0 gm/dL [facility] Glucose [Mass/Vol] 100 mg/dL Normal 55 - 199 mg/dL [facility] Lipase [Catalytic activity/Vol] 24 U/L Normal 13 - 58 unit/L [facility] Potassium [Moles/Vol] 4.1 mmol/L Normal 3.5 - 5.3 mmol/L [facility] Protein [Mass/Vol] 7.4 g/dL Normal 6.0 - 7.8 gm/dL [facility] Sodium [Moles/Vol] 138 mmol/L Normal 135 - 145 mmol/L [facility] Troponin I.cardiac [Mass/Vol] 4.00 pg/mL Low 10.10 - 27.10 pg/mL [facility] Urea nitrogen [Mass/Vol] 21 mg/dL Normal 5 - 21 mg/dL [facility] Urea nitrogen/Creatinine [Mass ratio] 35 mg/mg High 10 - 20 [facility] COAGULATIONOrdered By: Aydee Khan on 05-02-2023 aPTT Coag (PPP) [Time] 31.4 s Normal 25.1 - 36.5 second(s) [facility] Auto Coag INR Coag (PPP) [Relative time] 1.0 {INR} Invalid Interpretation Code [facility] Auto Coag PT Coag (PPP) [Time] 11.0 s Normal 9.4 - 1 2.5 second(s) [facility] Auto Coag CT Abdomen/Pelvis w/ Contras ton 05-02-2023 CT Abdomen/Pelvis w/ Contrast Exam Date/Time: 05/02/2023 19:37 EDT Reason for Exam: Abdominal pain, acute, nonlocalized;Other (please specify) Report IMPRESSION: NO ACUTE ABDOMINOPELVIC PROCESS. HEPATOMEGALY. SPLENOMEGALY. EXAM: CT Abdomen/Pelvis w/ Contrast History: Left flank pain Technique: Multiple contiguous axial images were obtained of the abdomen and pelvis from the level of the lung bases through the ischial tuberosities with IV contrast. Multiplanar reformats were obtained. Delayed images were obtained. Comparison: CT abdomen pelvis 12/31/2015 and 12/13/2015 Findings: Lung bases are clear. Hypodense lesion of the right lobe of the liver has not significant changed since 2016 CT. Small hypodense lesion of the spleen also has not significantly changed since 2016 CT. Postsurgical changes of cholecystectomy. The liver enlarged measuring approximately 22 cm in craniocaudal length and the spleen is enlarged measuring approximately 17 cm in length. The stomach, pancreas, and adrenal glands are within normal limits. The kidneys enhance uniformly. No urinary tract calculi or hydronephrosis. Urinary bladder is poorly distended but otherwise unremarkable. The uterus is present. Abdominal aorta is nonaneurysmal. No retroperitoneal or abdominal/pelvic lymphadenopathy. No small bowel obstruction. No overt colonic mass or pericolonic inflammation. Appendix is surgically absent. No free fluid or free air. No acute osseous abnormality. Postsurgical changes of posterior lumbar spine fusion at L4-L5. Degenerative changes of the spine. Fat-containing periumbilical hernia is unchanged from prior examinations. All CT scans at this facility use dose modulation, iterative reconstruction, and/or Report weight based dosing when appropriate to reduce radiation dose to as low as reasonably achievable. Ordering Provider: Tera Lopez FINAL REPORT Dictated: 05/02/2023 7:56 pm Nathanael Trivedi DO Signed (Electronic Signature): 05/02/2023 7:56 pm Signed by: Nathanael Trivedi DO Transcribed by: ABRAM Technologist: DRK Technical Comments GFR (mL/min/1/73m2) 112 Contrast: Isovue 300 Contrast amount in ml's: 100 Rectal Contrast Given? No Oral contrast amount in ml's: 0 Normal [facility] Consent for Treatmenton 04-19 Consent for Treatment [id number] #1.00CD:127 Normal [facility] Discharge Instructionson Discharge Instructions [id number]#1.00CD:127 Normal [facility] ED Clinical Summaryon 2022 ED Clinical Summary [address] [address] ED Clinical Summary Person [facility]: [facility] Age[facility] 47 Years : 1975 Sex: Female Language: Khmer PCP: ADIEL LUX MD Marital Status: Visit Id: Visit Reason: Vomiting; Chills; Nausea; Flank pain; LT SIDE PAIN Speciality: Acuity: 3 Enc Type: Emergency Med Service: Emergency Arrival: 05/02/2023 17:12:41 Discharge: 05/02/2023 21:28:37 LOS: 000 04:16 Checkin: 05/02/2023 17:12:41 Checkout: 05/02/2023 21:28:37 Dispo Type: Home (Routine DC) EVENTS: Event Name Event Status Request Date/Time Start Date/Time Complete Date/Time Arrive Complete 05/02/2023 17:12:41 05/02/2023 17:12:41 05/02/2023 17:12:41 Document Home Meds Request 05/02/2023 17:12:41 Triage Complete 05/02/2023 17:12:41 05/02/2023 17:29:26 05/02/2023 17:29:26 Registration Complete 05/02/2023 17:16:47 05/02/2023 17:16:47 05/02/2023 17:16:47 Reg Complete Request 05/02/2023 17:16:47 Reg Bed Request Complete 05/02/2023 17:16:47 05/02/2023 17:16:47 05/02/2023 17:16:47 Pending Labs Complete 05/02/2023 17:30:54 05/02/2023 18:20:24 Lab Complete 05/02/2023 17:30:54 05/02/2023 18:20:24 Pending Labs Complete 05/02/2023 17:31:11 05/02/2023 19:31:30 Lab Complete 05/02/2023 17:31:11 05/02/2023 19:31:30 Urine Collect Complete 05/02/2023 17:31:11 05/02/2023 19:31:30 Pending Labs Complete 05/02/2023 17:50:13 05/02/2023 17:50:13 05/02/2023 18:20:23 Lab Complete 05/02/2023 17:50:13 05/02/2023 17:50:13 05/02/2023 18:20:23 Pending Labs Complete 05/02/2023 18:05:54 05/02/2023 18:05:54 05/02/2023 18:06:02 Lab Complete 05/02/2023 18:05:54 05/02/2023 18:05:54 05/02/2023 18:06:02 Bed Assign Complete 05/02/2023 18:31:41 05/02/2023 18:31:41 05/02/2023 18:31:41 Dr Exam Complete 05/02/2023 18:31:41 05/02/2023 18:32:37 05/02/2023 18:32:37 RN Exam Complete 05/02/2023 18:31:41 05/02/2023 18:45:42 05/02/2023 18:45:42 Registration Request 05/02/2023 18:32:37 Dr Exam Complete 05/02/2023 18:34:44 05/02/2023 18:34:44 05/02/2023 18:34:44 Pending Labs Complete 05/02/2023 18:58:08 05/02/2023 20:03:18 CT Complete 05/02/2023 18:58:08 05/02/2023 19:18:00 05/02/2023 19:37:16 X-Ray Complete 05/02/2023 18:58:08 05/02/2023 19:42:54 05/02/2023 19:43:06 Pending Labs Complete 05/02/2023 19:05:09 05/02/2023 19:05:09 05/02/2023 19:33:19 EKG Complete 05/02/2023 19:29:17 05/02/2023 20:05:03 Wet Read Request 05/02/2023 19:43:06 Pending Labs Complete 05/02/2023 19:53:49 05/02/2023 19:53:49 05/02/2023 19:53:49 Meds Admin Complete 05/02/2023 19:55:20 05/02/2023 20:00:36 Meds Admin Complete 05/02/2023 20:08:10 05/02/2023 20:14:09 Meds Admin Complete 05/02/2023 20:38:30 05/02/2023 21:02:35 Discharge Complete 05/02/2023 20:39:28 05/02/2023 21:28:44 05/02/2023 21:28:44 Transfer Complete 05/02/2023 21:28:44 05/02/2023 21:28:44 05/02/2023 21:28:44 ADDRESS: [address] [place] [id number] [facility] DOC NOTES: MEDICAL INFORMATION: Prescriptions Given: New Medications [id number], [address] [place], [place] [id number], [phone] dicyclomine (Bentyl 10 mg Cap) 1 Capsules By Mouth 4 times a day for 10 Days. Refills: 0. Medications to Continue Taking That Have Changed [id number], [address] [place], [place] [id number], [phone] START: ondansetron (Zofran ODT 4 mg Tab-Dis) 1 Tablets By Mouth every 8 hours as needed Nausea/Vomiting. Refills: 0. Other Medications START: ondansetron (Zofran) 4 Milligram By Mouth every 6 hours as needed as needed for nausea/vomiting. Medications to Continue with No Changes Other Medications alprazolam (Xanax 0.5 mg Tab) 1 Tablets By Mouth 3 times a day as needed for anxiety. buPROPion (Wellbutrin 75 mg Tab) 1 Tablets By Mouth 2 times a day. diazepam (Valium 2 mg Tab) 1 Tablets By Mouth every 4 hours as needed as needed for anxiety. levothyroxine (Synthroid) 1 tablet By Mouth every day. Non-Formulary Medication (benzapril) 10 Milligram By Mouth every day. omeprazole (Prilosec 40 mg Cap-EC) 1 Capsules By Mouth once a day (at bedtime). oxybutynin (oxybutynin 10 mg ER Tab) 1 Tablets By Mouth 3 times a day. oxycodone (oxyCODONE 20 mg ER Tab) 1 Tablets By Mouth every 4 hours as needed Pain. promethazine (Phenergan) 25 Milligram By Mouth every 6 hours as needed as needed for nausea/vomiting. rivaroxaban (Xarelto 20 mg oral tablet) 1 Tablets By Mouth once a day (in the evening). tizanidine (Zanaflex 4 mg Tab) 2 Tablets By Mouth 2 times a day. PATIENT EDUCATION INFORMATION: Instructions: Abdominal Pain, Adult, Cqml-gr-Srlc Follow up: With: Address: When: Celso ASTUDILLO [address] [place] [address]. [facility] [address] [place], [place] [id number] [place] (1) In 3 days 05/05/2023 With: Address: When: ADIEL LUX [address] [place], [place] [id number] [facility] () In 3 days 05/05/2023 Comments: Follow-up with your primary care provider in 3 to 5 days. If symptoms worsen, do not improve, or new (more content not included)... Normal [facility] ED Patient Education Noteon 05-02-2023 ED Patient Education Note Gastroenterology Abdominal Pain, Adult Many things can cause belly (abdominal) pain. Most times, belly pain is not dangerous. Many cases of belly pain can be watched and treated at home. Sometimes, though, belly pain is serious. Your doctor will try to find the cause of your belly pain. Follow these instructions at home: Medicines ? Take chos-gzi-wjouawo and prescription medicines only as told by your doctor. ? Do not take medicines that help you poop (laxatives) unless told by your doctor. General instructions ? Watch your belly pain for any changes. ? Drink enough fluid to keep your pee (urine) pale yellow. ? Keep all follow-up visits as told by your doctor. This is important. Contact a doctor if: ? Your belly pain changes or gets worse. ? You are not hungry, or you lose weight without trying. ? You are having trouble pooping (constipated) or have watery poop (diarrhea) for more than 2?3 days. ? You have pain when you pee or poop. ? Your belly pain wakes you up at night. ? Your pain gets worse with meals, after eating, or with certain foods. ? You are vomiting and cannot keep anything down. ? You have a fever. ? You have blood in your pee. Get help right away if: ? Your pain does not go away as soon as your doctor says it should. ? You cannot stop vomiting. ? Your pain is only in areas of your belly, such as the right side or the left lower part of the belly. ? You have bloody or black poop, or poop that looks like tar. ? You have very bad pain, cramping, or bloating in your belly. ? You have signs of not having enough fluid or water in your body (dehydration), such as: ? Dark pee, very little pee, or no pee. ? Cracked lips. ? Dry mouth. ? Sunken eyes. ? Sleepiness. ? Weakness. ? You have trouble breathing or chest pain. Summary ? Many cases of belly pain can be watched and treated at home. ? Watch your belly pain for any changes. ? Take gqfo-rsg-thmxgyj and prescription medicines only as told by your doctor. ? Contact a doctor if your belly pain changes or gets worse. ? Get help right away if you have very bad pain, cramping, or bloating in your belly. This information is not intended to replace advice given to you by your health care provider. Make sure you discuss any questions you have with your health care provider. Document Revised: 01/14/2020 Document Reviewed: 01/14/2020 Elsevier Patient Education ? 2022 [employer] Normal [facility] ED Patient Summaryon 023 ED Patient Summary [address] [address] Patient Discharge Instructions Person Information Name: TABBY JAY Age: 47 Years Arrival Date: 05/02/2023 17:12:41 Discharge Diagnosis: Abdominal pain Primary Care Physician: ADIEL LUX MD Provider Information Primary Provider: Gabriel Fournier DO Advanced Bending Shed Worker:None The exam and treatment you received in the Emergency Department were for an urgent problem and are not intended as complete care. It is important that you follow up with a doctor, nurse practitioner, or physician?s therapy assistant for ongoing care. If your symptoms become worse or you do not improve as expected and you are unable to reach your usual health care provider, you should return to the Emergency Department. We are available 24 hours a day. TABBY JAY has been given the following list of patient education materials, prescriptions and follow-up instructions: Follow-up Instructions: With: Address: When: Celso ASTUDILLO [address] [place] [address]. [address] [place], [place] [id number] Business (1) In 3 days 05/05/2023 With: Address: When: ADIEL LUX [address] [place], [place] [id number] [facility] (1) In 3 days 05/05/2023 Comments: Follow-up with your primary care provider in 3 to 5 days. If symptoms worsen, do not improve, or new symptoms arise please report back to emergency department for further evaluation. In the event that this physician does not participate in your insurance network, please consult with your insurance company to find a nearby participating provider. Patient Education Materials: Abdominal Pain, Adult, Fkia-yc-Nikx A MESSAGE TO ALL PATIENTS REGARDING OPIOIDS PRESCRIPTION OPIOIDS: WHAT YOU NEED TO KNOW Prescription opioids can be used to help relieve pxmrzjsw-uo-sldlfi pain and are often prescribed following a surgery or injury, or for certain health conditions. These medications can be an important part of the treatment but also come with serious risks. It is important to work with your healthcare provider to make sure you are getting the safest, most effective care. WHAT ARE THE RISKS AND SIDE EFFECTS OF OPIOID USE? Prescription opioids carry serious risks of addiction and overdose, especially with prolonged use. An opioid overdose, often marked by slowed breathing, can cause sudden . The use of prescription opioids can have a number of side effects as well, even when taken as directed: ? Tolerance?meaning you might need to take more of the medication for the same pain relief ? Physical dependence?meaning you have symptoms of withdrawal when a medication is stopped ? Increased sensitivity to pain ? Constipation ? Nausea, vomiting, and dry mouth ? Sleepiness and dizziness ? Confusion ? Depression ? Low levels of testosterone that can result in lower sex drive, energy, and strength ? Itching and sweating RISKS ARE GREATER WITH: ? History of drug misuse, substance use disorder, or overdose ? Mental health conditions (such as depression or anxiety) ? Sleep apnea ? Older age (65 years and older) ? Avoid alcohol while taking prescription opioids. Also, unless specifically advised by your health care provider, medications to avoid include: ? Benzodiazepines (such as Xanax or Valium) ? Muscle relaxants (such as Soma or Flexeril) ? Hypnotics (such as Ambien or Lunesta) ? Other prescription opioids KNOW YOUR OPTIONS Talk to your health care provider about ways to manage your pain that don?t involve prescription opioids. Some of these options may actually work better and have fewer risks and side effects. Options may include: ? Pain relievers such as acetaminophen, ibuprofen, and naproxen ? Some medication that are also used for depression or seizures ? Physical therapy and exercise ? Cognitive behavioral therapy, a psychological, goal-directed approach, in which patients learn how to modify physical, behavioral, and emotional triggers of pain and stress. IF YOU ARE PRESCRIBED OPIOIDS FOR PAIN: ? Never take opioids in greater amounts or more often than prescribed. ? Follow up with your primary health care provider. o Work together to create a plan on how to manage your pain. o Talk about ways to help manage your pain that don?t involve prescription opioids. o Talk about any and all concerns and side effects. ? Help prevent misuse and abuse o Never sell or share prescription opioids. o Never use another person?s prescription opioids. ? Store prescription opioids in a secure place and out of reach of others (this may include visitors, children, friends, and family). ? Safely dispose of unused prescription opioids: Find your community drug take-back program or your pharmacy mail-back program, or flush them down the toilet, following guidance from the Food and Drug Administrati (more content not included)... Normal [facility] HEMATOLOGYOrdered By: SYSTEM SYSTEM on 05-02-2023 Basophils/100 WBC (Bld) 0.7 % Normal 0.0 - 2.0 % [facility] HemeAutoSS Basophils/Leukocytes Auto (Bld) [Pure # fraction] 0.1 E9/L Normal 0.0 - 0.2 E9/L [facility]eAutoSS Eosinophils/100 WBC (Bld) 1.0 % Normal 0.0 - 8.0 % [facility]eAutoSS Eosinophils/Leukocytes Auto (Bld) [Pure # fraction] 0.1 E9/L Normal 0.0 - 0.5 E9/L [facility]eAutoSS Lymphocytes/100 WBC (Bld) 31.2 % Normal 14.0 - 50.0 % [facility]eAutoSS Lymphocytes/Leukocytes Auto (Bld) [Pure # fraction] 3.2 E9/L Normal 1.0 - 4.0 E9/L [facility]eAutoSS Monocytes/100 WBC (Bld) 5.6 % Normal 4.0 - 14.0 % [facility] HemeAutoSS Monocytes/Leukocytes Auto (Bld) [Pure # fraction] 0.6 E9/L Normal 0.2 - 1.0 E9/L [facility]AutoSS Neutrophils/100 WBC (Bld) 61.5 % Normal 36.0 - 75.0 % [facility]eAutoSS Neutrophils/Leukocytes Auto (Bld) [Pure # fraction] 6.3 E9/L Normal 2.0 - 7.5 E9/L [facility]eAuto[facility] HEMATOLOGYOrdered By: Michael Ramirez on 05-02-2023 Erythrocyte distribution width (RBC) [Ratio] 15.8 % High 10.9 - 14.2 % [facility] Hematocrit (Bld) [Volume fraction] 41.1 % Normal 34.0 - 46.0 % [facility]eAutoSS Hemoglobin (Bld) [Mass/Vol] 13.6 g/dL Normal 12.0 - 16.0 gm/dL [facility]Auto[facility] MCH (RBC) [Entitic mass] 25.5 pg Low 27.0 - 34.0 pg [facility]eAutoSS MCHC (RBC) [Mass/Vol] 33.1 g/dL Normal 31.4 - 36.0 gm/dL FT HemeAutoSS MCV (RBC) [Entitic vol] 77.0 fL Low 80.0 - 100.0 fL [facility] HemeAutoSS Platelet mean volume (Bld) [Entitic vol] 6.6 fL Normal 6.4 - 10.8 fL [facility] HemeAutoSS Platelets (Bld) [#/Vol] 257.0 E9/L Normal 150.0 - 500.0 E9/L [facility] HemeAutoSS RBC (Bld) [#/Vol] 5.3 E12/L Normal 4.3 - 5.9 E12/L [facility] HemeAutoSS WBC corrected for nucl RBC Auto (Bld) [#/Vol] 10.3 E9/L Normal 4.0 - 11.0 E9/L [facility] HemeAutoSS Hep Func Panelon 05-02-2023 Bilirubin.indirect [Mass or moles/Vol] UTC Abnormal 0.1-0.9 [facility] Comment on above: Result Comment: Resu lt verified by Discern Rule. Performed result UTC (Unable to Calculate) was sent as an Alpha code due the inability to calculate a valid numeric value. Performed By: #### 2 [id number], [id number], [id number], 3233849, 5641580, 2539565, [id number] ####[facility] [address] [place] [address] Albumin [Mass/Vol] 3.5 g/dL Normal 3.3-5.0 [facility] Comment on above: Performed By: #### 2 400019, 5962505, 14397889, 6983538, 2644965, 5101849, 36831815 ####[facility] [address] [place] [address] Albumin/Globulin (S) [Mass conc ratio] 0.9 Low 1.1-2.2 [facility] Comment on above: Performed By: #### 2 369194, 6415962, 28085853, 0522602, 0726017, 8703567, 22813684 ####[facility] [address] [place] [address] ALP [Catalytic activity/Vol] 63 Int._Unit/L Normal 21-98 [facility] Comment on above: Performed By: #### 2 425573, 9734062, 51365395, 0334701, 9066411, 7634848, 26153281 ####[facility] [address] [place] [address] ALT No additional P-5'-P [Catalytic activity/Vol] 19 Int._Unit/L Normal 6-46 [facility] Comment on above: Performed By: #### 2 863509, 6327781, 97690496, 7320158, 6817658, 0520767, 36570208 ####[facility] [address] [place] [address] AST [Catalytic activity/Vol] 19 Int._Unit/L Normal 5-43 [facility] Comment on above: Performed By: #### 2 949844, 9487410, 39365436, 1535590, 2914682, 2592629, 66605770 ####[facility] [address] [place] [address] Bilirubin [Mass/Vol] 0.4 mg/dL Normal 0.0-1.1 [facility] Comment on above: Performed By: #### 2 223216, 7080059, 50100580, 0566146, 8826743, 9480696, 38438110 ####[facility] [address] [place] [address] Globulin (S) [Mass/Vol] 3.9 g/dL Normal 1.4-4.0 [facility] Comment on above: Performed By: #### 2 830738, 7642881, 50337650, 5064709, 0358503, 0334501, 45564509 ####[facility] [address] [place] [address] Protein [Mass/Vol] 7.4 g/dL Normal 6.0-7.8 [facility] Comment on above: Performed By: #### 2 954761, 2160577, 89170716, 6426645, 2602889, 8429549, 91344514 ####[facility] [address] [place] [address] Bilirubin.direct [Mass/Vol] mg/dL Normal 0.1-0.4 [facility] Comment on above: Performed By: #### 2 239758, 7210618, 86527850, 8335224, 9029690, 9393463, 88405314 ####[facility] [address] [place] [address] Lipase Levelon 05-02-2023 Lipase [Catalytic activity/Vol] 24 U/L Normal 13-58 [facility] Comment on above: Performed By: #### 2 638033, 7215333, 03512810, 9988458, 1850137, 9507227, 18169160 ####[facility] [address] [place] [address] PT & PTTon 05-02-2023 aPTT Coag (PPP) [Time] 31.4 second(s) Normal 25.1-36.5 [facility] Comment on above: Result Comment: Para meter 15 days - 4 weeks 1 - 5 months 6 - 11 months 1 - 5 years 6 - 10 years 11 - 17 years PTT Mean: 35.4 (27.6-45.6) Mean: 33.5 (24.8-40.7) Mean: 32.4 (25.1-40.7) Mean: 31.6 (24.0-39.2) Mean: 31.6 (26.9-38.7) Mean: 31.0 (24.6-38.4) Pediatric Reference ranges were obtained from a study by Ramsey Zafar et al. prepared from 1437 samples obtained at 7 different centers using the same coagulation reagent and instrumentation as [facility]. Currently there are no coagulation studies available worldwide for children to 14 days, and no normal ranges. Heparin therapeutic range (represented by Anti-Factor Xa activity of 0.2 - 0.4 U/mL) corresponds to PTT of 56.6 - 109.0 sec. Performed By: #### 1 [id number] ####[facility] [address] [place] [address] INR Coag (PPP) [Relative time] 1.0 {INR} Invalid Interpretation Code [facility] Comment on above: Result Comment: INR results are specifically intended to assess patients stabilized on long-term Anticoagulation therapy suggested INR?s ?Less Intensive Anticoagulation? 2.0 ? 3.0 Conventional Range 3.0 ? 4.5 Performed By: #### 1 [id number] ####[facility] [address] [place] [address] PT Coag (PPP) [Time] 11.0 second(s) Normal 9.4-12.5 [facility] Comment on above: Result Comment: 15 d ays - 4 weeks 1 - 5 months 6 -11 months 1 ? 5 years 6 ? 10 years 11 -17 years Mean: 11.2 (9.5 ? 12.6) Mean: 11.0 (9.7 ? 12.8) Mean: 11.0 (9.8 ? 13.0) Mean: 11.3 (9.9 ? 13.4) Mean: 11.7 (10.0 ? 14.6) Mean: 11.8 (10.0 - 14.1) Pediatric Reference ranges were obtained from a study by Ramsey Zafar et al. prepared from 1437 samples obtained at 7 different centers using the same coagulation reagent and instrumentation as [facility]. Currently there are no coagulation studies available worldwide for children to 14 days, and no normal ranges. Performed By: #### 1 [id number] ####[facility] [address] [place] [address] Troponin 0 Hr.on 05-02-2023 Troponin I.cardiac [Mass/Vol] 4.00 pg/mL Low 10.10-27.10 [facility] Comment on above: Result Comment: The 95% CI (Confidence Interval) PPV (Positive Predictive Value) for myocardial infarction in females is 38 pg/mL, in males 51 pg/mL. The results should be used in conjunction with clinical conditions of myocardial infarction. (Access High Sensitivity Troponin I Instructions For Use, Colette Marge, April 2018) Performed By: #### 2 [id number], [id number], [id number], [id number], [id number] ####[facility] [address] [place] [address] UA With Cult Reflexon 2022 Bacteria LM Ql (Urine sed) TRACE Normal Trace [facility] Comment on above: Performed By: #### 1 [id number] ####[facility] [address] [place] [address] Bilirubin Ql (U) Negative Normal Negative [facility] Comment on above: Performed By: #### 1 [id number] ####[address] [address] Clarity (U) CLEAR Normal Clear [facility] Comment on above: Performed By: #### 1 [id number] ####[address] [address] Color (U) YELLOW Normal Yellow [facility] Comment on above: Performed By: #### 1 [id number] ####[address] [address] Epithelial cells.squamous LM.HPF (Urine sed) [#/Area] 9-10 Normal 0-2 [facility] Comment on above: Performed By: #### 1 [id number] ####[address] [address] Glucose Test strip (U) [Mass/Vol] Negative Normal Negative [facility] Comment on above: Performed By: #### 1 [id number] ####[address] [address] Hemoglobin Ql (U) 1+ Abnormal Negative [facility] Comment on above: Performed By: #### 1 [id number] ####[address] [address] Ketones (U) [Mass/Vol] Negative Normal Negative [facility] Comment on above: Performed By: #### 1 [id number] ####[address] [address] Tiburones.plasma/Tiburones .RBC (Bld) [Mass ratio] 4-20 Normal 0-3 [facility] Comment on above: Performed By: #### 1 [id number] ####[facility] [address] [place] [address] Nitrite Ql (U) Negative Normal Negative [facility] Comment on above: Performed By: #### 1 [id number] ####[facility] [address] [place] [address] pH (U) 5.5 [pH] Invalid Interpretation Code 5.0-9.0 [facility] Comment on above: Performed By: #### 1 [id number] ####[facility] [address] [place] [address] Protein (U) [Mass/Vol] Negative Normal Negative [facility] Comment on above: Performed By: #### 1 [id number] ####[address] [address] Specific gravity (U) [Rel density] >=1.030 Invalid Interpretation Code 1.005-1.030 [facility] Comment on above: Performed By: #### 1 [id number] ####[facility] [address] [place] [address] Type of Urine collection method Clean Catch Normal [facility] Comment on above: Performed By: #### 1 [id number] ####[facility] [address] [place] [address] Urobilinogen Qn (U) 0.2 {Shani'U}/dL Normal 0.0-1.0 [facility] Comment on above: Performed By: #### 1 [id number] ####[facility] [address] [place] [address] WBC Auto Ql (U) Negative Normal Negative [facility] Comment on above: Performed By: #### 1 [id number] ####[facility] [address] [place] [address] WBC LM.HPF (Urine sed) [#/Area] 0-5 Normal 0-5 [facility] Comment on above: Performed By: #### 1 [id number] ####[facility] [address] [place] [address] URINALYSISOrdered By: Jd Khan on 05-02-2023 Bacteria LM Ql (Urine sed) Trace /HPF Normal Trace/HPF [facility] UA Auto SS Bilirubin Ql (U) Negative (05/02/23 7:00 PM) Normal Negative [facility] UA Auto SS Clarity (U) Clear (05/02/23 7:00 PM) Normal Clear [facility] UA Auto SS Color (U) Yellow (05/02/23 7:00 PM) Normal Yellow [facility] UA Auto SS Epithelial cells.squamous LM.HPF (Urine sed) [#/Area] 9-10 /HPF Normal 0-2/HPF [facility] UA Aut o SS Glucose Test strip (U) [Mass/Vol] Negative (05/02/23 7:00 PM) Normal Negative [facility] UA Auto SS Hemoglobin Ql (U) 1+ *ABN* (05/02/23 7:00 PM) Invalid Interpretation Code Negative [facility] UA Auto SS Ketones (U) [Mass/Vol] Negative (05/02/23 7:00 PM) Normal Negative [facility] UA Auto SS Tiburones.plasma/Tiburones .RBC (Bld) [Mass ratio] 4-20 /HPF Normal 0-3/HPF [facility] UA Auto SS Nitrite Ql (U) Negative (05/02/23 7:00 PM) Normal Negative [facility] UA Auto SS pH (U) 5.5 *NA* (05/02/23 7:00 PM) Invalid Interpretation Code 5.0 - 9.0 [facility] UA Auto SS Protein (U) [Mass/Vol] Negative (05/02/23 7:00 PM) Normal Negative [facility] UA Auto SS Specific gravity (U) [Rel density] >=1.030 *NA* (05/02/23 7:00 PM) Invalid Interpretation Code 1.005 - 1.030 [facility] UA Auto SS UA Spec Desc Clean Catch (05/02/23 7:00 PM) Normal [facility] UA Auto SS Urobilinogen Qn (U) 0.8501270 {Shani'U}/dL Normal 0.0 - 1.0 EU/dL [facility] UA Auto SS WBC Auto Ql (U) Negative (05/02/23 7:00 PM) Normal Negative [facility] UA Auto SS WBC LM.HPF (Urine sed) [#/Area] 0-5 /HPF Normal 0-5/HPF [facility] UA Auto SS XR Chest Single Viewon 05-02 XR Chest Single View Exam Date/Time: 05/02/2023 19:43 EDT Reason for Exam: Shortness of breath (SOB) Report IMPRESSION: NO RADIOGRAPHIC EVIDENCE OF ACUTE INTRATHORACIC PROCESS. EXAM: XR Chest Single View History: Shortness of breath Technique: Portable AP view of the chest. Comparison: None available Findings: Heart size is at the upper limits of normal. No pneumothorax, pleural effusion, or consolidation. No acute osseous abnormality. Ordering Provider: Tera Lopez FINAL REPORT Dictated: 05/02/2023 7:57 pm Nathanael Trivedi DO Signed (Electronic Signature): 05/02/2023 7:57 pm Signed by: Nathanael Trivedi DO Transcribed by: ABRAM Technologist: PERRY Technical Comments Radiation Dose: Ka,r in mGy = na DAP = na Normal [facility] eGFRon 05-02-2023 GFR/1.73 sq M.predicted among non-blacks MDRD (S/P/Bld) [Vol rate/Area] 112 mL/min/1.73 m2 Normal >=59 [facility] Comment on above: Order Comment: Order added by Discern Expert. Result Comment: Envelope Sealer nick kidney disease could be indicated at eGFR's of less than 60 mL/min/1.73m2. Kidney failure is indicated at less than 15 mL/min/1.73m2. Performed By: #### 2 [id number], [id number], [id number], [id number] ####[facility] [address] [place] [address] CBC AUTO DIFFon 09-15-2022 BASO # 0.0 103/ul Normal 0.0-0.1 [facility] Comment on above: Performed By: #### C BC #### [facility] [address] [address] [address] Katie Perez Basophils/100 WBC (Bld) 0.2 % Normal 0.2-2.0 [facility] Comment on above: Performed By: #### C BC #### [facility] [address] [place] [address] Dr. Katie Perez EO # 0.0 103/ul Normal 0.0-0.7 [facility] Comment on above: Performed By: #### C BC #### [facility] [address] [place] [address] Dr. Katie Perez Eosinophils/100 WBC (Bld) 0.4 % Critically low 0.9-7.0 [facility] Comment on above: Performed By: #### C BC #### [facility] [address] [place] [address] Dr. Katie Perez Erythrocyte distribution width (RBC) [Ratio] 16.1 % Critically high 11.0-15.0 [facility] Comment on above: Performed By: #### C BC #### [facility] [address] [place] [address] Dr. Katie Perez Hematocrit (Bld) [Volume fraction] 44.8 % Normal 36.0-48.0 [facility] Comment on above: Performed By: #### C BC #### [facility] [address] [place] [address] Dr. Katie Perez Hemoglobin (Bld) [Mass/Vol] 13.9 g/dL Normal 12.0-16.0 [facility] Comment on above: Performed By: #### C BC #### [facility] [address] [place] [address] Dr. Katie Perez IG # 0.03 10e3/ul Normal 0.00-0.03 [facility] Comment on above: Performed By: #### C BC #### [facility] [address] [place] [address] Dr. Katie Perez IG % 0.3 % Normal 0.0-0.5 [facility] Comment on above: Performed By: #### C BC #### [facility] [address] [place] [address] Dr. Katie Perez LYMPH # 2.9 103/ul Normal 1.2-3.8 [facility] Comment on above: Performed By: #### C BC #### [facility] [address] [place] [address] Dr. Katie Perez Lymphocytes/100 WBC (Bld) 31.3 % Normal 20.5-60.0 [facility] Comment on above: Performed By: #### C BC #### [facility] [address] [place] [address] Dr. Katie Perez MANUAL DIFF REQ NO Normal [facility] Comment on above: Performed By: #### C BC #### [facility] [address] [place] [address] Dr. Katie Perez MCH (RBC) [Entitic mass] 23.4 pg Critically low 26.7-34.0 [facility] Comment on above: Performed By: #### C BC #### [facility] [address] [place] [address] Dr. Katie Perez MCHC (RBC) [Mass/Vol] 31.0 g/dL Normal 29.9-35.2 [facility] Comment on above: Performed By: #### C BC #### [facility] [address] [place] [address] Dr. Katie Perez MCV (RBC) [Entitic vol] 75.4 fL Critically low 81.0-99.0 [facility] Comment on above: Performed By: #### C BC #### [facility] [address] [place] [address] Dr. Katie Perez MONO # 0.4 103/ul Normal 0.3-0.8 [facility] Comment on above: Performed By: #### C BC #### [facility] [address] [place] [address] Dr. Katie Perez Monocytes/100 WBC (Bld) 4.7 % Normal 1.7-12.0 [facility] Comment on above: Performed By: #### C BC #### [facility] [address] [place] [address] Dr. Katie Perez NEUT # 5.9 103/ul Normal 1.4-6.5 [facility] Comment on above: Performed By: #### C BC #### [facility] [address] [address] [address] Katie Perez Neutrophils/100 WBC (Bld) 63.1 % Normal 43.0-75.0 [facility] Comment on above: Performed By: #### C BC #### [facility] [address] [address] [address] Katie Perez Platelet mean volume (Bld) [Entitic vol] 8.5 fL Critically low 9.5-13.5 [facility] Comment on above: Performed By: #### C BC #### [facility] [address] [address] [address] Katie Perez PLT 295 103/ul Normal 150-450 [facility] Comment on above: Performed By: #### C BC #### [facility] [address] [place] [address] Dr. Katie Perez RBC 5.94 106/ul Critically high 4.20-5.40 [facility] Comment on above: Performed By: #### C BC #### [facility] [address] [place] [address] Dr. Katie Perez WBC 9.3 103/ul Normal 4.0-11.0 [facility] Comment on above: Performed By: #### C BC #### [facility] [address] [place] [address] ABD/PELVIS WO CONon 09-15 CT ABD/PELVIS WO CON EXAMINATION:CT ABD/PELVIS WO CON INDICATION:UNSPECIFI ED ABDOMINAL PAIN COMPARISON:12/20/2018 TECHNIQUE:Multiple thin section transaxial slices were acquired through the abdomen and pelvis without intravenous contrast. Coronal and sagittal reconstructed images were reviewed. Oral contrastWas not administered. FINDINGS: LOWER CHEST: The lower chest is unremarkable. LIVER: The unenhanced liver is unremarkable. GALLBLADDER AND BILIARY SYSTEM: No obvious ductal dilation. The gallbladder surgically absent. SPLEEN: The spleen is enlarged measuring 16.0 cm in AP dimension. PANCREAS: The pancreas is unremarkable. ADRENAL GLANDS: The adrenal glands are unremarkable. KIDNEYS AND URETERS: There is no hydronephrosis of the kidneys.No obstructing urologic calcifications are present. VASCULATURE: Vascularity is unremarkable. PERITONEUM/RETROPERI TONEUM: Peritoneum/retroperi toneum is unremarkable. LYMPH NODES: No suspicious lymphadenopathy. GASTROINTESTINAL TRACT: The bowel is normal in caliber.There are no definitive acute inflammatory changes associated with the bowel.The appendix is surgically absent. BLADDER: The urinary bladder is unremarkable. REPRODUCTIVE SYSTEM: The uterus is absent. BODY WALL: There is a small fat-containing supraumbilical hernia. There is a tiny fat-containing umbilical hernia. BONES: Patient is status post posterior spinal fusion and discectomy of the L4-L5 level. IMPRESSION: 1. No acute process in the abdomen or pelvis based on unenhanced CT imaging. No obstructive uropathy. Electronically authenticated by: DIPESH JACKSON Date: 2022-09-15 20:05 Normal [facility] CULTURE URINEon 09-15-2022 CULTURE URINE Culture Observations: NO GROWTH. Normal [facility] Comment on above: Performed By: #### U RCX #### [facility] [address] [place], [place] [address] Dr. Katie Perez Covid-19 PCR (CVDTB)on 08-20 SARS-CoV-2 (COVID-19) RNA JB+probe Ql (Unsp spec) Detected Critically abnormal NOT DETECTED [facility] Comment on above: Result Comment: This test is not yet approved or cleared by the [place] FDA. When there are no FDA-approved or cleared tests available, and other criteria are met, FDA can make tests available under an emergency access mechanism called an Emergency Use Authorization (EUA). The EUA for this test is supported by the [place] of Health and Human Service's (HHS's) declaration that circumstances exist to justify the emergency use of in vitro diagnostics for the detection and/or diagnosis of the virus that causes COVID-19. This EUA will remain in effect (meaning this test can be used) for the duration of the COVID-19 declaration justifying emergency of IVDs, unless it is terminated or revoked by FDA (after which the test may no longer be used). Performed By: #### C VDTBH #### [facility] [address] [place], [place] [address] Dr. Katie Perez ER URINE PROFILEon 2 Bilirubin Ql (U) SMALL Abnormal NEGATIVE [facility] Comment on above: Performed By: #### U MICRO, ERUR #### [facility] [address] [address] [address] Katie Perez Clarity (U) CLEAR Normal CLEAR [facility] Comment on above: Performed By: #### U MICRO, ERUR #### [facility] [address] [address] [address] Katie Perez Color (U) DK. YELLOW Normal YELLOW [facility] Comment on above: Performed By: #### U MICRO, ERUR #### [facility] [address] [address] [address] Katie Perez ERUAHD A micrscopic examination will be performed if indicated. Normal [facility] Comment on above: Performed By: #### U MICRO, ERUR #### [facility] [address] [place] [address] Dr. Katie Perez Glucose Ql (U) Negative Normal NEGATIVE [facility] Comment on above: Performed By: #### U MICRO, ERUR #### [facility] [address] [address] [address] Katie Perez Hemoglobin Ql (U) LARGE Abnormal NEGATIVE [facility] Comment on above: Performed By: #### U MICRO, ERUR #### [facility] [address] [address] [address] Katie Perez Ketones Ql (U) Negative Normal NEGATIVE [facility] Comment on above: Performed By: #### U MICRO, ERUR #### [facility] [address] [address] [address] Katie Perez LEUKOCYTES Negative Normal NEGATIVE [facility] Comment on above: Performed By: #### U MICRO, ERUR #### [facility] [address] [address] [address] Katie Perez Nitrite Ql (U) Negative Normal NEGATIVE [facility] Comment on above: Performed By: #### U MICRO, ERUR #### [facility] [address] [address] [address] Katie Perez pH (U) 5.0 [pH] Normal 5-9 [facility] Comment on above: Performed By: #### U MICRO, ERUR #### [facility] [address] [address] [address] Katie Perez SPEC GRAVITY >=1.030 Abnormal 1.005-<=1.02 5 [facility] Comment on above: Performed By: #### U MICRO, ERUR #### [facility] [address] [place] [address] Dr. Katie Perez UA PROTEIN TRACE Normal NEGATIVE/ TRACE [facility] Comment on above: Performed By: #### U MICRO, ERUR #### [facility] [address] [place] [address] Dr. Katie Perez UR MICRO IND INDICATED Normal [facility] Comment on above: Performed By: #### U MICRO, ERUR #### [facility] [address] [place] [address] Dr. Katie Perez Urobilinogen Qn (U) 1.0 {Shani'U}/dL Normal 0.2 - 1. 0 [facility] Comment on above: Performed By: #### U MICRO, ERUR #### [facility] [address] [place] [address] Dr. Katie Perez INFLUENZA A AND B AGon 09-[address] [facility] SEE BELOW Normal [facility] Comment on above: Result Comment: Nega tive for Flu A protein angiten. Infection due to Flu A cannot be ruled out. Flu A angiten in the sample may be below the detection limit of the test. Performed By: #### I NFLUAB #### [facility] [address] [place] [address] Dr. Katie Perez INFLUBNEGH SEE BELOW Normal [facility] Comment on above: Result Comment: Nega tive for Flu B protein antigen. Infection due to Flu B cannot be ruled out. Flu B antigen in the sample may be below the detection limit of the test. Performed By: #### I NFLUAB #### [facility] [address] [place] [address] Dr. Katie Perez INFLUENZA A AG Negative Normal NEGATIVE SEE COMMENT [facility] Comment on above: Performed By: #### I NFLUAB #### [facility] [address] [place] [address] Dr. Katie Perez INFLUENZA B AG Negative Normal NEGATIVE SEE COMMENT [facility] Comment on above: Performed By: #### I NFLUAB #### [facility] [address] [place] [address] Dr. Katie Perez LIPASEon 09-15-2022 Lipase [Catalytic activity/Vol] 54.0 U/L Critically low 73.0-393.0 [facility] Comment on above: Performed By: #### C MP, LIPA #### [facility] [address] [place] [address] Dr. Katie Perez PROF 14(COMP METB)on 022 Albumin [Mass/Vol] 3.3 g/dL Critically low 3.4-5.0 [facility] Comment on above: Performed By: #### C MP, LIPA #### [facility] [address] [place] [address] Dr. Katie Perez Albumin/Globulin [Mass ratio] 0.8 {ratio} Normal [facility] Comment on above: Performed By: #### C MP, LIPA #### [facility] [address] [place] [address] Dr. Katie Perez ALP [Catalytic activity/Vol] 90 U/L Normal 46-116 [facility] Comment on above: Performed By: #### C MP, LIPA #### [facility] [address] [place] [address] Dr. Katie Perez ALT [Catalytic activity/Vol] 49 U/L Normal 14-59 [facility] Comment on above: Performed By: #### C MP, LIPA #### [facility] [address] [place] [address] Dr. Katie Perez Anion gap [Moles/Vol] 12.7 mmol/L Normal [facility] Comment on above: Performed By: #### C MP, LIPA #### [facility] [address] [place] [address] Dr. Katie Perez AST [Catalytic activity/Vol] 24 U/L Normal 15-37 [facility] Comment on above: Performed By: #### C MP, LIPA #### [facility] [address] [address] [address] Katie Perez Bilirubin [Mass/Vol] 0.5 mg/dL Normal 0.2-1.0 [facility] Comment on above: Performed By: #### C MP, LIPA #### [facility] [address] [place] [address] Dr. Katie Perez Calcium [Mass/Vol] 8.9 mg/dL Normal 8.5-10.1 [facility] Comment on above: Performed By: #### C MP, LIPA #### [facility] [address] [place] [address] Dr. Katie Perez Chloride [Moles/Vol] 100 mmol/L Normal 98-107 [facility] Comment on above: Performed By: #### C MP, LIPA #### [facility] [address] [place] [address] Dr. Katie Perez CO2 [Moles/Vol] 28.2 mmol/L Normal 21.0-32.0 [facility] Comment on above: Performed By: #### C MP, LIPA #### [facility] [address] [place] [address] Dr. Katie Perez Creatinine [Mass/Vol] 0.74 mg/dL Normal 0.55-1.02 [facility] Comment on above: Performed By: #### C MP, LIPA #### [facility] [address] [place] [address] Dr. Katie Perez EGFR-AF JAMAICAN >60 Normal >=60 [facility] Comment on above: Performed By: #### C MP, LIPA #### [facility] [address] [place] [address] Dr. Katie Perez EGFR-NON AF JAMAICAN >60 Normal >=60 [facility] Comment on above: Performed By: #### C MP, LIPA #### [facility] [address] [place] [address] Dr. Katie Perez Globulin (S) [Mass/Vol] 4.4 g/dL Normal [facility] Comment on above: Performed By: #### C MP, LIPA #### [facility] [address] [address] [address] Katie Perez Glucose [Mass/Vol] 90 mg/dL Normal 74-106 [facility] Comment on above: Performed By: #### C MP, LIPA #### [facility] [address] [place] [address] Dr. Katie Perez Potassium [Moles/Vol] 3.9 mmol/L Normal 3.5-5.1 [facility] Comment on above: Performed By: #### C MP, LIPA #### [facility] [address] [place] [address] Dr. Katie Perez Protein [Mass/Vol] 7.7 g/dL Normal 6.4-8.2 [facility] Comment on above: Performed By: #### C MP, LIPA #### [facility] [address] [place] [address] Dr. Katie Perez Sodium [Moles/Vol] 137 mmol/L Normal 136-145 [facility] Comment on above: Performed By: #### C MP, LIPA #### [facility] [address] [place] [address] Dr. Katie Perez Urea nitrogen [Mass/Vol] 21.0 mg/dL Critically high 7.0-18.0 [facility] [facility] Comment on above: Performed By: #### C MP, LIPA #### [facility] [address] [place] [address] Dr. Katie Perez Urea nitrogen/Creatinine [Mass ratio] 28.4 mg/mg Normal [facility] Comment on above: Performed By: #### C MP, LIPA #### [facility] [address] [place] [address] Dr. Katie Perez URINE MICROSCOPIC ONLYon BACTERIA TRACE Abnormal NONE SEEN [facility] Comment on above: Performed By: #### U MICRO, ERUR #### [facility] [address] [place] [address] Dr. Katie Perez Bacteria identified Cx Nom (U) INDICATED Normal [facility] Comment on above: Performed By: #### U MICRO, ERUR #### [facility] [address] [place] [address] Dr. Katie Perez CAST NONE SEEN Normal NONE SEEN [facility] Comment on above: Performed By: #### U MICRO, ERUR #### [facility] [address] [address] [address] Katie Perez Crystals LM Nom (Urine sed) NONE SEEN Normal NONE SEEN [facility] Comment on above: Performed By: #### U MICRO, ERUR #### [facility] [address] [address] [address] Katie Perez Epithelial cells LM Ql (Urine sed) FEW Abnormal NONE SEEN /RARE [facility] Comment on above: Performed By: #### U MICRO, ERUR #### [facility] [address] [place] [address] Dr. Katie Perez MUCOUS NONE SEEN Normal NONE SEEN [facility] Comment on above: Performed By: #### U MICRO, ERUR #### [facility] [address] [address] [address] Katie Perez RBC 5-10 Abnormal 0-2 [facility] Comment on above: Performed By: #### U MICRO, ERUR #### [facility] [address] [place] [address] Dr. Katie Perez WBC 0-2 Abnormal NONE SEEN [facility] Comment on above: Performed By: #### U MICRO, ERUR #### [facility] [address] [place] [address] ABD/PEL WO IVCONon 2021 CT ABD/PEL WO IVCON * * *Final Report* * * DATE OF EXAM: May 13 2022 12:00AM [facility] 0531 - CT ABD/PEL WO IVCON / PROCEDURE REASON: Nausea/vomiting * * * * Physician Interpretation * * * * EXAMINATION: CT ABDOMEN AND PELVIS WITHOUT IV CONTRAST CLINICAL HISTORY: Nausea and vomiting. Abdominal pain. TECHNIQUE: Non-IV contrast imaging of the abdomen and pelvis was performed using standard technique, scanning from just above the dome of the diaphragm to the symphysis pubis. Unenhanced imaging is limited for the evaluation of some intra-abdominal and pelvic pathology. MQ: CTAPWO_3 Contrast: None. CT Radiation dose: Integrated Dose-length product (DLP) for this visit = 2460 mGy*cm. CT Dose Reduction Employed: Automated exposure control(AEC) and iterative recon. COMPARISON: None. RESULT: Abdomen / Pelvis: Liver: Unremarkable. Biliary: S/p cholecystectomy. Spleen: Mild splenomegaly. Pancreas: Unremarkable. Adrenals: No mass. Kidneys: No calculus, hydronephrosis, or finding to suggest a cyst or mass in the unenhanced kidney. GI Tract: No bowel dilation. Small duodenal diverticula. Suspect prior appendectomy. Lymph Nodes: No lymphadenopathy. Mesentery/peritoneum : No ascites. Retroperitoneum: No mass. Vasculature: No abdominal aortic or iliac artery aneurysm. Pelvis: No mass or ascites. Prior hysterectomy. Bones/Soft Tissues: Multilevel degenerative changes in the thoracolumbar spine. L4-L5 posterior fusion. Lower thorax: Unremarkable. Steam Fitter Supervisor (topogram) images: No additional findings. IMPRESSION: No acute abnormality is identified within the abdomen or pelvis. Repair Welder: MILTON Transcribe Date/Time: May 13 2022 1:41A Dictated by : AMANDA WISEMAN MD This examination was interpreted and the report reviewed and electronically signed by: AMANDA WISEMAN MD on May 13 2022 1:52AM EST [id number] CN Normal [facility] ED PROV NOTEon 05-13-2022 ED PROV NOTE HNO ID: [id number] Author: Damir Scott APRN.PUBLIC RELATIONS CONSULTANT Service: Emergency Medicine Author Type: Nurse Practitioner Type: ED Provider Notes Filed: 05/13/2022 2:34 AM Note Text: ED Provider Note Patient Name: Tabby Jay : 1975 SERVICE DATE: 05/12/22 History Patient presents with: Abdominal Pain: Hx spleen and liver lesions 46-year-old female presents emergency department with left upper quadrant pain she rates 9/10. This has been a long going issue since 2019 but with COVID her ability to seek treatment had been decreased. This flare has been going on x1 month but worse in the last 4 to 5 days. Severe nausea and vomiting associated with it. Decreased appetite. Verbalizes a known lesion on her spleen/liver that she is concerned about. Pertinent PMH-DVT, migraines, anxiety, appendectomy. She denies fever or chills. She denies chest pain or shortness of breath. She is on OxyContin 20 mg regularly for back control with her pain management doctor. She also notes some blood in her urine at times. Denies any blood in her vomit or stool. Also relates a left posterior calf pain that has been going on also approximately 1 month without swelling. History provided by: Patient, significant other and medical records certified court interpreter used: No PAST MEDICAL HISTORY Diagnosis Date - Anxiety and depression - Chronic pain syndrome - Migraines - Pseudotumor cerebri - S/P appendectomy - S/P MIGUEL (total abdominal hysterectomy) - Smoker PAST SURGICAL HISTORY Procedure Laterality Date - CHOLECYSTECTOMY - CHOLECYSTECTOMY - TONSILLECTOMY AND ADENOIDECTOMY - TOTAL ABDOMINAL HYSTERECT W/WO RMVL TUBE OVARY - US ABDOMEN COMPLETE FAMILY HISTORY Problem Relation Age of Onset - Heart Father - Hypertension Father - Diabetes Mother Social History Tobacco Use - Smoking status: Every Day Packs/day: 0.50 Years: 9.00 Pack years: 4.50 Types: Cigarettes - Smokeless tobacco: Not on file Substance and Sexual Activity - Alcohol use: Not on file - Drug use: Not on file - Sexual activity: Not on file ALLERGIES Allergen Reactions - Aspirin - Ciprofloxacin Swelling - Solumedrol [Methylp* Shortness of Breath - Tape [Adhesive Tape* Other: See Comments Tears skin Off - Toradol [Ketorolac * Swelling, Itching Review of Systems Constitutional: Negative for chills and fever. HENT: Negative for sore throat and trouble swallowing. Eyes: Negative for visual disturbance. Respiratory: Negative for chest tightness and shortness of breath. Cardiovascular: Negative for chest pain, palpitations and leg swelling. Gastrointestinal: Positive for abdominal pain, nausea and vomiting. Negative for blood in stool, constipation and diarrhea. Genitourinary: Negative for difficulty urinating, dysuria and urgency. Musculoskeletal: Negative for gait problem and joint swelling. Skin: Negative for color change. Neurological: Negative for dizziness and syncope. Hematological: Does not bruise/bleed easily. Psychiatric/Behavior al: Negative for behavioral problems. Physical Exam Vitals [08/24/22 1954] BP Pulse Temp Temp src Resp SpO2 Weight Height 156/86 79 36.2 ?C (97.1 ?F) Temporal 16 97 % (!) 201.9 kg (445 lb) 1.753 m (5' 9 ) Physical Exam Vitals and nursing note reviewed. Constitutional: General: She is awake. She is not in acute distress. Appearance: Normal appearance. She is obese. She is not ill-appearing, toxic-appearing or diaphoretic. HENT: Head: Normocephalic and atraumatic. Mouth/Throat: Mouth: Mucous membranes are moist. Eyes: Extraocular Movements: Extraocular movements intact. Pupils: Pupils are equal, round, and reactive to light. Cardiovascular: Rate and Rhythm: Normal rate and regular rhythm. Pulses: Normal pulses. Radial pulses are 2+ on the right side and 2+ on the left side. Dorsalis pedis pulses are 2+ on the right side and 2+ on the left side. Posterior tibial pulses are 2+ on the right side and 2+ on the left side. Heart sounds: Normal heart sounds. Pulmonary: Effort: Pulmonary effort is normal. Breath sounds: Normal breath sounds. Abdominal: General: Bowel sounds are normal. There is no distension. Palpations: Abdomen is soft. Tenderness: There is abdominal tenderness in the left upper quadrant. There is no right CVA tenderness, left CVA tenderness, guarding or rebound. Negative signs include Amezquita's sign and Rovsing's sign. Musculoskeletal: General: Normal range of motion. Cervical back: Normal range of motion. Right lower leg: Edema present. Left lower leg: Edema present. Skin: General: Skin is warm and dry. Capillary Refill: Capillary refill takes less than 2 seconds. Neurological: General: No focal deficit present. Mental Status: She is alert and oriented to person, place, and time. Psychiatric: Mood and Affect: Mood normal. Behavior: Behavior normal. Behavior is cooperative. (more content not included)... Normal [facility] DVT LOWER LTon 05-13-2022 DVT LOWER LT * * *Final Report* * * DATE OF EXAM: May 12 2022 10:57PM [facility] 1006 - US DVT LOWER LT / PROCEDURE REASON: Leg deep vein thrombosis (DVT) suspected * * * * Physician Interpretation * * * * EXAM: Unilateral lower extremity sands scale, color Doppler and spectral Doppler venous ultrasound. HISTORY: Leg deep vein thrombosis (DVT) suspected COMPARISON: None. TECHNIQUE: Grayscale, color Doppler and spectral Doppler ultrasound of the left lower extremity venous system. Images were stored in a permanent archive. FINDINGS: Realtime grayscale, color and spectral Doppler sonography demonstrates no evidence of thrombus in the left external iliac, common femoral, femoral and popliteal veins. The studied veins below the knee are also patent and/or compressible. Augmentation of the spectral Doppler waveform suggests patency of the deep veins below the knee. Cystic collection in the left popliteal fossa measures 3.9 x 3 x 1.6 cm. The visualized portion of the right common femoral vein demonstrates no evidence of thrombus. IMPRESSION: 1. No sonographic evidence of DVT in the left lower extremity. The calf veins were not well visualized. 2. Left Ambrose's cyst. Repair Welder: MILTON Transcribe Date/Time: May 12 2022 11:01P Dictated by : WHITLEY GILLESPIE MD This examination was interpreted and the report reviewed and electronically signed by: WHITLEY GILLESPIE MD on May 12 2022 11:02PM EST [id number] CN Normal [facility] CBC W Auto Differential pane l (Bld)on 05-12-2022 Basophils (Bld) [#/Vol] 0.03 10*3/uL Normal <0.11 [facility] Comment on above: Order Comment: Speci men Type: BLOOD SPECIMEN Ordering Facility: [facility] Address: [address] [address] Performed By: #### 5 7021-8 #### [facility] CLIA [id number] [address] [facility] [place] [address] [place] Basophils/100 WBC (Bld) 0.3 % Normal [facility] Comment on above: Order Comment: Speci men Type: BLOOD SPECIMEN Ordering Facility: [facility] Address: [address] [address] Performed By: #### 5 7021-8 #### [facility] CLIA [id number] [address] [place] [address] [place] Differential cell count method Nom (Bld) Auto Normal [facility] Comment on above: Order Comment: Speci men Type: BLOOD SPECIMEN Ordering Facility: [facility] Address: [address] Performed By: #### 5 7021-8 #### [facility] [place] [id number] [place] Eosinophils (Bld) [#/Vol] 0.07 10*3/uL Normal <0.46 [facility] Comment on above: Order Comment: Speci men Type: BLOOD SPECIMEN Ordering Facility: [facility] Address: [address] Performed By: #### 5 7021-8 #### [facility] IA [id number] [address] Eosinophils/100 WBC (Bld) 0.6 % Normal [facility] Comment on above: Order Comment: Speci men Type: BLOOD SPECIMEN Ordering Facility: [facility] Address: [address] [place] [address] Performed By: #### 5 7021-8 #### [facility] [place] [id number] [address] Erythrocyte distribution width (RBC) [Ratio] 16.1 % High 11.5-15.0 [facility] Comment on above: Order Comment: Speci men Type: BLOOD SPECIMEN Ordering Facility: [facility] Address: [address] Performed By: #### 5 7021-8 #### [facility] IA [id number] [address] OF [facility] Hematocrit (Bld) [Volume fraction] 42.1 % Normal 36.0-46.0 [facility] Comment on above: Order Comment: Speci men Type: BLOOD SPECIMEN Ordering Facility: [facility] Address: [address] [place], [place] [address] Performed By: #### 5 7021-8 #### [facility] IA [id number] [address] [place] Hemoglobin (Bld) [Mass/Vol] 12.5 g/dL Normal 11.5-15.5 [facility] Comment on above: Order Comment: Speci men Type: BLOOD SPECIMEN Ordering Facility: [facility] Address: [address] [place] [address] Performed By: #### 5 7021-8 #### [facility] CLIA [id number] [place] IMMATURE GRAN % 0.3 % Normal [facility] ital Comment on above: Order Comment: Speci men Type: BLOOD SPECIMEN Ordering Facility: [facility] Address: [address] [place] [address] Performed By: #### 5 7021-8 #### [facility] CLIA [id number] [place] IMMATURE GRAN ABS 0.04 k/uL Normal <0.10 [facility] Comment on above: Order Comment: Speci men Type: BLOOD SPECIMEN Ordering Facility: [facility] Address: [address] [place] [address] Performed By: #### 5 7021-8 #### [facility] IA [id number] [address] [place] Lymphocytes (Bld) [#/Vol] 3.54 10*3/uL Normal 1.00-4.00 [facility] Comment on above: Order Comment: Speci men Type: BLOOD SPECIMEN Ordering Facility: [facility] Address: [address] [place] [address] Performed By: #### 5 7021-8 #### [facility] CLIA [id number] [place] Lymphocytes/100 WBC (Bld) 30.8 % Normal [facility] Comment on above: Order Comment: Speci men Type: BLOOD SPECIMEN Ordering Facility: [facility] Address: [address] [place] [address] Performed By: #### 5 7021-8 #### [facility] CLIA [id number] [place] MCH (RBC) [Entitic mass] 23.2 pg Low 26.0-34.0 [facility] Comment on above: Order Comment: Speci men Type: BLOOD SPECIMEN Ordering Facility: [facility] Address: [address] [place] [address] Performed By: #### 5 7021-8 #### [facility] IA [id number] [address] [place] [address] [place] MCHC (RBC) [Mass/Vol] 29.7 g/dL Low 30.5-36.0 [facility] Comment on above: Order Comment: Speci men Type: BLOOD SPECIMEN Ordering Facility: [facility] Address: [address] [place] [address] Performed By: #### 5 7021-8 #### [facility] [place] [id number] [address] [place] [address] [place] MCV (RBC) [Entitic vol] 78.1 fL Low 80.0-100.0 [facility] Comment on above: Order Comment: Speci men Type: BLOOD SPECIMEN Ordering Facility: [facility] Address: [address] [place] [address] Performed By: #### 5 7021-8 #### [facility] IA [id number] [address] [place] Monocytes (Bld) [#/Vol] 0.65 10*3/uL Normal <0.87 [facility] Comment on above: Order Comment: Speci men Type: BLOOD SPECIMEN Ordering Facility: [facility] Address: [address] [place] [address] Performed By: #### 5 7021-8 #### [facility] IA [id number] [place] [address] [place] Monocytes/100 WBC (Bld) 5.6 % Normal [facility] Comment on above: Order Comment: Speci men Type: BLOOD SPECIMEN Ordering Facility: [facility] Address: [address] [place], [place] [address] Performed By: #### 5 7021-8 #### [facility] CLIA [id number] [address] [place] [address] [place] Neutrophils (Bld) [#/Vol] 7.18 10*3/uL Normal 1.45-7.50 [facility] Comment on above: Order Comment: Speci men Type: BLOOD SPECIMEN Ordering Facility: [facility] Address: [address] [place], [place] [address] Performed By: #### 5 7021-8 #### [facility] IA [id number] [address] [place] [address] [place] Neutrophils/100 WBC (Bld) 62.4 % Normal [facility] Comment on above: Order Comment: Speci men Type: BLOOD SPECIMEN Ordering Facility: [facility] Address: [address] [place] [address] Performed By: #### 5 7021-8 #### [facility] [place] [id number] [address] [place] [address] [place] Nucleated RBC (Bld) [#/Vol] 10*3/uL Normal <0.01 [facility] Comment on above: Order Comment: Speci men Type: BLOOD SPECIMEN Ordering Facility: [facility] Address: [address] [place] [address] Performed By: #### 5 7021-8 #### [facility] [place] [id number] [address] [place] [address] [place] Nucleated RBC/100 WBC (Bld) [Ratio] 0.0 /100 WBC Normal [facility] Comment on above: Order Comment: Speci men Type: BLOOD SPECIMEN Ordering Facility: [facility] Address: [address] [place], [place] [address] Performed By: #### 5 7021-8 #### [facility] IA [id number] [address] [place] [address] [place] Platelet mean volume (Bld) [Entitic vol] 9.0 fL Normal 9.0-12.7 [facility] Comment on above: Order Comment: Speci men Type: BLOOD SPECIMEN Ordering Facility: [facility] Address: [address] Performed By: #### 5 7021-8 #### [facility] CLIA [id number] [address] [place] [address] [place] Platelets (Bld) [#/Vol] 301 10*3/uL Normal 150-400 [facility] Comment on above: Order Comment: Speci men Type: BLOOD SPECIMEN Ordering Facility: [facility] Address: [address] [place], [place] [address] Performed By: #### 5 7021-8 #### [facility] IA [id number] [address] [place] [address] [place] RBC (Bld) [#/Vol] 5.39 10*6/uL High 3.90-5.20 [facility] Comment on above: Order Comment: Speci men Type: BLOOD SPECIMEN Ordering Facility: [facility] Address: [address] [place], [place] [address] Performed By: #### 5 7021-8 #### [facility] IA [id number] [address] OF [facility] WBC (Bld) [#/Vol] 11.51 10*3/uL High 3.70-11.00 [facility] Comment on above: Order Comment: Speci men Type: BLOOD SPECIMEN Ordering Facility: [facility] Address: [address] [place], [place] [address] Performed By: #### 5 7021-8 #### [facility] [place] [id number] [address] [id number] [facility] [place] 05-12-2022 [facility]N [facility] TABBY [facility]AY ([id number]) 1975 F [place] Date Time Provider Department 05/12/22 ALLYSON VIEIRA During your visit today, we recorded the following information about you: Allyson Vieira RN 05/12/2022 2:57 PM Signed Called patient regarding 06/[address] Cardoso. Patient stated tearfully I'm in so much pain and I can't get a CT scan done anywhere because of my weight. I went to [place] yesterday and they couldn't do it so now I'm waiting for my to come home to take me somewhere else Patient describes abdominal pain as sharp and constant 10/10 encompassing entire abdomen with left side most severe. After placing patient on hold, called [facility] to confirm [address] Informed patient and advised to go to [facility] ED for eval. Instructed to call back with update so as to confirm need for OV with Dr. Cardoso. Patient verbalized understanding and appreciation for assistance. Contact info provided. Allergies As of Date: 05/12/2022 Noted Allergy Reaction ASPIRIN 12/09/2009 CIPROFLOXACIN 03/03/2016 7 - Swelling SOLUMEDROL (METHYLPREDNISOLONE SO*03/03/2016 12 - Shortness of Breath TAPE (ADHESIVE TAPE (ROSINS)) 03/03/2016 14 - Other: See Comments Comments: Tears skin Off TORADOL (KETOROLAC TROMETHAMINE) 12/09/2009 7 - Swelling 9 - Itching Date Reviewed: 03/03/2016 Reviewed by: Beto Choi - Fully Assessed Reason for Visit: Appointment [186] Prescriptions as of 05/12/2022 - ALPRAZolam (XANAX) 0.5 mg tablet 0.5 mg three times daily. - FLUoxetine (PROZAC) 20 mg capsule 40 mg daily at bedtime. - levothyroxine (SYNTHROID) 100 mcg tablet 100 mcg once daily. - metoprolol tartrate, short acting, (LOPRESSOR) 100 mg tablet 100 mg twice daily. - oxybutynin (DITROPAN) 5 mg tablet 10 mg twice daily. - oxyCODONE-acetaminop hen (PERCOCET 10) 10-325 mg tablet 1 tablet every 6 hours as needed. - tiZANidine (ZANAFLEX) 4 mg tablet 4 mg four times daily as needed. - tizanidine hcl(ZANAFLEX 2 MG CAP) - ATENOLOL 25 MG TAB Take one(1) tablet daily. - omeprazole(PRILOSEC 10 MG CAP) Take one(1) capsule daily. - AMITRIPTYLINE 25 MG TAB Take one(1) tablet at bedtime. Problem List As Of Date 05/12/2022 Noted Resolved Piriformis Syndrome [G57.00] 12/09/2009 Morbid Obesity [E66.01] 12/09/2009 Adnexal Mass [N94.89] 12/09/2009 S/P MIGUEL (total abdominal hysterectomy) [Z90.710] S/P appendectomy [Z90.49] Pseudotumor cerebri [G93.2] Anxiety and depression [F41.9, F32.A] Smoker [F17.200] Migraines [G43.909] Chronic pain syndrome [G89.4] BMI 60.0-69.9, adult (HCC) [Z68.44] 03/03/2016 Urinary incontinence [R32] 03/03/2016 Acute midline low back pain with right-sided sc*03/03/2016 Encounter Status:Closed by ALLYSON VIEIRA on 05/12/22 Normal [facility] Comprehensive metabolic 2000 panelon 05-12-2022 Albumin [Mass/Vol] 4.0 g/dL Normal 3.9-4.9 [facility] Comment on above: Order Comment: Speci men Type: BLOOD SPECIMEN Ordering Facility: [facility] Address: [address] [place] [address] Performed By: #### 2 4323-8, 34724-5, 3040-3 #### [facility] CLIA [id number] [address] [facility] [place] [address] [place] ALP [Catalytic activity/Vol] 89 U/L Normal 34-123 [facility] Comment on above: Order Comment: Speci men Type: BLOOD SPECIMEN Ordering Facility: [facility] Address: [address] [place] [address] Performed By: #### 2 4323-8, 02345-1, 0-3 #### [facility] CLIA [id number] [address] [place] [address] [place] ALT [Catalytic activity/Vol] 22 U/L Normal 7-38 [facility] Comment on above: Order Comment: Speci men Type: BLOOD SPECIMEN Ordering Facility: [facility] Address: [address] Performed By: #### 2 4323-8, , 0-3 #### [facility] CLIA [id number] [address] [place] [address] [place] Anion gap [Moles/Vol] 13 mmol/L Normal 9-18 [facility] Comment on above: Order Comment: Speci men Type: BLOOD SPECIMEN Ordering Facility: [facility] Address: [address] Performed By: #### 2 4323-8, , 0-3 #### [facility] CLIA [id number] [address] [place], [place] [id number] [place] [address] [place] AST [Catalytic activity/Vol] 13 U/L Normal 13-35 [facility] Comment on above: Order Comment: Speci men Type: BLOOD SPECIMEN Ordering Facility: [facility] Address: [address] Performed By: #### 2 4323-8, , 0-3 #### [facility] CLIA [id number] [address] [place] [address] [place] Bilirubin [Mass/Vol] 0.3 mg/dL Normal 0.2-1.3 [facility] Comment on above: Order Comment: Speci men Type: BLOOD SPECIMEN Ordering Facility: [facility] Address: [address] Performed By: #### 2 4323-8, 40926-4, 0-3 #### [facility] CLIA [id number] [address] [place] [address] [place] Calcium [Mass/Vol] 9.3 mg/dL Normal 8.5-10.2 [facility] Comment on above: Order Comment: Speci men Type: BLOOD SPECIMEN Ordering Facility: [facility] Address: [address] [place] [address] Performed By: #### 2 4323-8, 99999-6, 0-3 #### [facility] CLIA [id number] [address] [place] [address] [place] Chloride [Moles/Vol] 100 mmol/L Normal 97-105 [facility] Comment on above: Order Comment: Speci men Type: BLOOD SPECIMEN Ordering Facility: [facility] Address: [address] [place] [address] Performed By: #### 2 4323-8, , 3039-3 #### [facility] CLIA [id number] [address] [place] [address] [place] CO2 [Moles/Vol] 24 mmol/L Normal 22-30 [facility] Comment on above: Order Comment: Speci men Type: BLOOD SPECIMEN Ordering Facility: [facility] Address: [address] [place] [address] Performed By: #### 2 4323-8, , 0-3 #### [facility] CLIA [id number] [address] [place] [address] [place] Creatinine [Mass/Vol] 0.58 mg/dL Normal 0.58-0.96 [facility] Comment on above: Order Comment: Speci men Type: BLOOD SPECIMEN Ordering Facility: [facility] Address: [address] [place], [place] [address] Performed By: #### 2 4323-8, 59103-2, 0-3 #### [facility] CLIA [id number] [address] [place] [address] [place] ESTIMATED GLOMERULAR FILTRATION RATE 114 mL/min/1.73m??? Normal >=60 [facility] Comment on above: Order Comment: Michelle high Type: BLOOD SPECIMEN Ordering Facility: [facility] Address: [address] [place] [address] Result Comment: Shilpa mated Glomerular Filtration Rate (eGFR) is calculated using the 2020 CKD-EPI creatinine equation. This equation utilizes serum creatinine, sex, and age as parameters. The creatinine assay has traceable calibration to isotope dilution-mass spectrometry. Refer to KDIGO guidelines for clinical interpretation. In patients with unstable renal function, e.g. those with acute kidney injury, the eGFR may not accurately reflect actual GFR. Performed By: #### 2 4323-8, 11787-4, 3040-3 #### [facility] CLIA [id number] [address] [facility] [place] [address] [place] Glucose [Mass/Vol] 140 mg/dL High 74-99 [facility] Comment on above: Order Comment: Michelle high Type: BLOOD SPECIMEN Ordering Facility: [facility] Address: [address] [place] [address] Result Comment: The [place] Diabetes Association (ADA) provides guidance for cutoff values for fasting glucose and random glucose. The ADA defines fasting as no caloric intake for at least 8 hours. Fasting plasma glucose results between 100 to 125 mg/dL indicate increased risk for diabetes (prediabetes). Fasting plasma glucose results greater than or equal to 126 mg/dL meet the criteria for diagnosis of diabetes. In the absence of unequivocal hyperglycemia, results should be confirmed by repeat testing. In a patient with classic symptoms of hyperglycemia or hyperglycemic crisis, random plasma glucose results greater than or equal to 200 mg/dL meet the criteria for diagnosis of diabetes. Reference: Standards of Medical Care in Diabetes 2016, [place] Diabetes Association. Diabetes Care. 2016.39(Suppl 1). Performed By: #### 2 4323-8, 03981-6, 0-3 #### [facility] CLIA [id number] [address] [facility] [place] [address] [place] Potassium [Moles/Vol] 3.6 mmol/L Low 3.7-5.1 [facility] Comment on above: Order Comment: Michelle [facility] Type: BLOOD SPECIMEN Ordering Facility: [facility] Address: [address] [place], [place] [address] Performed By: #### 2 4323-8, 03166-5, 3040-3 #### [facility] CLIA [id number] [address] [place] [address] [place] Protein [Mass/Vol] 7.2 g/dL Normal 6.3-8.0 [facility] Comment on above: Order Comment: Speci men Type: BLOOD SPECIMEN Ordering Facility: [facility] Address: [address] [place], [place] [address] Performed By: #### 2 4323-8, 21590-2, 0-3 #### [facility] CLIA [id number] [address] [place] [id number] [place] Sodium [Moles/Vol] 137 mmol/L Normal 136-144 [facility] Comment on above: Order Comment: Speci men Type: BLOOD SPECIMEN Ordering Facility: [facility] Address: [address] [place], [place] [address] Performed By: #### 2 4323-8, 12595-6, 0-3 #### [facility] IA [id number] [address] [place] [address] [place] Urea nitrogen [Mass/Vol] 19 mg/dL Normal 7-21 [facility] Comment on above: Order Comment: Speci men Type: BLOOD SPECIMEN Ordering Facility: [facility] Address: [address] [place] [address] Performed By: #### 2 4323-8, 86425-6, 0-3 #### [facility] CLIA [id number] [address] [place] [address] [place] ED NOTEon 05-12-2022 ED NOTE HNO ID: [id number] Author: Claudia Pagan RN Service: ? Author Type: Registered Nurse Type: ED Notes Filed: 05/12/2022 7:59 PM Note Text: Patient presents with LUQ abdominal pain. 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 States she has had nausea/vomiting, denies diarrhea. Also has had some blood in her urine. VSS in triage. Normal [facility] Lipase SerPl-cCncon 05-12-20 22 Lipase [Catalytic activity/Vol] 24 U/L Normal 16-61 [facility] Comment on above: Order Comment: Speci men Type: BLOOD SPECIMEN Ordering Facility: [facility] Address: [address] [place] [address] Performed By: #### 2 4323-8, 29637-3, 3040-3 #### [facility] CLIA [id number] [address] [place] [address] [place] Magnesium SerPl-mCncon 05-12 Magnesium [Mass/Vol] 1.9 mg/dL Normal 1.7-2.3 [facility] Comment on above: Order [facility]: [facility] Type: BLOOD SPECIM[facility] Ordering Facility: [facility] Address: [address] [place], [place] [address] Performed By: #### 2 4323-8, 64511-6, 0-3 #### [facility] CLIA [id number] [place] Urinalysis complete panel (U )on 05-12-2022 Bacteria LM.HPF (Urine sed) [#/Area] Many Abnormal None Seen [facility] Comment on above: Order Comment: Speci men Type: URINE SPECIMEN Ordering Facility: [facility] Address: [address] [place], [place] [address] Performed By: #### 2 4356-8 #### [facility] CLIA [id number] [address] [place] [address] [place] Bilirubin Ql (U) Negative Normal Negative [facility] Comment on above: Order Comment: Speci men Type: URINE SPECIMEN Ordering Facility: [facility] Address: [address] [place], [place] [address] Performed By: #### 2 4356-8 #### [facility] CLIA [id number] [address] [place] [address] [place] Clarity (Unsp spec) Cloudy Abnormal Clear [facility] Comment on above: Order Comment: Speci men Type: URINE SPECIMEN Ordering Facility: [facility] Address: [address] [place] [address] Performed By: #### 2 4356-8 #### [facility] IA [id number] [address] [place] [address] [place] Color (U) Yellow Normal Yellow [facility] Comment on above: Order Comment: Speci men Type: URINE SPECIMEN Ordering Facility: [facility] Address: [address] [place] [address] Performed By: #### 2 4356-8 #### [facility] [id number] [address] [place] [address] [place] Epithelial cells LM.HPF (Urine sed) [#/Area] Few Normal [facility] Comment on above: Order Comment: Speci men Type: URINE SPECIMEN Ordering Facility: [facility] Address: [address] [place] [address] Performed By: #### 2 4356-8 #### [facility] IA [id number] [address] [place] [address] [place] Glucose Test strip (U) [Mass/Vol] Negative Normal Negative [facility] Comment on above: Order Comment: Speci men Type: URINE SPECIMEN Ordering Facility: [facility] Address: [address] [place] [address] Performed By: #### 2 4356-8 #### [facility] IA [id number] [address] [place] [address] [place] Hemoglobin Ql (U) Trace Abnormal Negative [facility] Comment on above: Order Comment: Speci men Type: URINE SPECIMEN Ordering Facility: [facility] Address: [address] [place] [address] Performed By: #### 2 4356-8 #### [facility] IA [id number] [address] [place] [address] [place] Hyaline casts (Urine sed) [#/Area] /[LPF] Abnormal 0 /LPF [facility] Comment on above: Order Comment: Speci men Type: URINE SPECIMEN Ordering Facility: [facility] Address: [address] [place] [address] Performed By: #### 2 4356-8 #### [facility] IA [id number] [address] [place] [address] [place] Ketones Ql (U) Trace Abnormal Negative [facility] Comment on above: Order Comment: Speci men Type: URINE SPECIMEN Ordering Facility: [facility] Address: [address] [place] [address] Performed By: #### 2 4356-8 #### [facility] IA [id number] [address] [place] [address] Leukocyte esterase Test strip Ql (U) Negative Normal Negative [facility] Comment on above: Order Comment: Speci men Type: URINE SPECIMEN Ordering Facility: [facility] Address: [address] [place] [address] Performed By: #### 2 4356-8 #### [facility] IA [id number] [address] [place] [address] STATES [facility] Nitrite Ql (U) Negative Normal Negative [facility] Comment on above: Order Comment: Speci men Type: URINE SPECIMEN Ordering Facility: [facility] Address: [address] [place], [place] [address] Performed By: #### 2 4356-8 #### [facility] IA [id number] [address] [place] [address] [place] pH (U) 5.5 [pH] Normal 5.0-8.0 [facility] Comment on above: Order Comment: Speci men Type: URINE SPECIMEN Ordering Facility: [facility] Address: [address] [place] [address] Performed By: #### 2 4356-8 #### [facility] IA [id number] [address] [place] [address] [place] Protein (U) [Mass/Vol] Negative Normal Negative [facility] Comment on above: Order Comment: Speci men Type: URINE SPECIMEN Ordering Facility: [facility] Address: [address] [place], [place] [address] Performed By: #### 2 4356-8 #### [facility] IA [id number] [place] [address] [place] RBC LM.HPF (Urine sed) [#/Area] 0-3 /HPF Normal 0-3 /HPF [facility] Comment on above: Order Comment: Speci men Type: URINE SPECIMEN Ordering Facility: [facility] Address: [address] [place] [address] Performed By: #### 2 4356-8 #### [facility] IA [id number] [address] [place] [address] [place] Specific gravity (U) [Rel density] >=1.030 High 1.005-1.030 [facility] Comment on above: Order Comment: Speci men Type: URINE SPECIMEN Ordering Facility: [facility] Address: [address] [place] [address] Performed By: #### 2 4356-8 #### [facility] IA [id number] [address] [place] [address] Urobilinogen Ql (U) 1.0 EU/dL Normal 0.2-1.0 EU/dL [facility] Comment on above: Order Comment: Speci men Type: URINE SPECIMEN Ordering Facility: [facility] Address: [address] [place], [place] [address] Performed By: #### 2 4356-8 #### [facility] IA [id number] [address] [place] [address] OF [place] WBC LM.HPF (Urine sed) [#/Area] 0-5 /HPF Normal 0-5 /HPF [facility] Comment on above: Order Comment: Speci men Type: URINE SPECIMEN Ordering Facility: [facility] Address: [address] [place], [place] [address] Performed By: #### 2 4356-8 #### [facility] CLIA [id number] [place] [address] [place] [facility] CBC with Diffon 05-11-2022 Abs. Basophil <0.03 Normal 0.00-0.20 [facility] Comment on above: Performed By: #### C DP, CP #### [address] [place] [address] Systems Software Developer: Daquan Barragan MD Abs.Imm.Granulocyte 0.03 k/uL Normal 0.00-0.30 [facility] Comment on above: Performed By: #### C DP, CP #### [address] [place] [address] Systems Software Developer: Daquan Barragan MD Abs.Neutrophil (Seg) 7.20 k/uL Normal 1.50-8.10 [facility] Comment on above: Performed By: #### C DP, CP #### [address] [place] [address] Systems Software Developer: Daquan Barragan MD Basophils/100 WBC (Bld) 0 % Normal 0-2 [facility] Comment on above: Performed By: #### C DP, CP #### [address] [place] [address] Systems Software Developer: Daquan Barragan MD Eosinophils (Bld) [#/Vol] 0.10 10*3/uL Normal 0.00-0.44 [facility] Comment on above: Performed By: #### C DP, CP #### [address] [place] [address] Systems Software Developer: Daquan Barragan MD Eosinophils/100 WBC (Bld) 1 % Normal 1-4 [facility] Comment on above: Performed By: #### C DP, CP #### [address] [place] [address] Systems Software Developer: Daquan Barragan MD Erythrocyte distribution width (RBC) [Ratio] 15.9 % High 11.8-14.4 [facility] Comment on above: Performed By: #### C DP, CP #### [address] [place], [facility]83 Systems Software Developer: Daquan Barragan MD Hematocrit (Bld) [Volume fraction] 43.2 % Normal 36.3-47.1 [facility] Comment on above: Performed By: #### C DP, CP #### [address] [place], [facility]83 Systems Software Developer: Daquan Barragan MD Hemoglobin (Bld) [Mass/Vol] 13.3 g/dL Normal 11.9-15.1 [facility] Comment on above: Performed By: #### C DP, CP #### [address] [place], [place] [address] Systems Software Developer: Daquan Barragan MD Immature granulocytes/100 WBC (Bld) 0 % Normal 0 [facility] Comment on above: Performed By: #### C DP, CP #### [address] [place], [facility]83 Systems Software Developer: Daquan Barragan MD Lymphocytes (Bld) [#/Vol] 3.94 10*3/uL High 1.10-3.70 [facility] Comment on above: Performed By: #### C DP, CP #### [facility] [address] [place] [address] [place], [facility]83 Systems Software Developer: Daquan Barragan MD Lymphocytes/100 WBC (Bld) 33 % Normal 24-43 [facility] Comment on above: Performed By: #### C DP, CP #### [address] [place], [facility]83 Systems Software Developer: Daquan Barragan MD MCH (RBC) [Entitic mass] 23.8 pg Low 25.2-33.5 [facility] Comment on above: Performed By: #### C DP, CP #### [address] [place], [place] [address] Systems Software Developer: Daquan Barragan MD MCHC (RBC) [Mass/Vol] 30.8 g/dL Normal 28.4-34.8 [facility] Comment on above: Performed By: #### C DP, CP #### [address] [place] [address] Systems Software Developer: Daquan Barragan MD MCV (RBC) [Entitic vol] 77.1 fL Low 82.6-102.9 [facility] Comment on above: Performed By: #### C DP, CP #### [address] [place], [facility]83 Systems Software Developer: Daquan Barragan MD Monocytes (Bld) [#/Vol] 0.68 10*3/uL Normal 0.10-1.20 [facility] Comment on above: Performed By: #### C DP, CP #### [address] [place], [place] [address] Systems Software Developer: Daquan Barragan MD Monocytes/100 WBC (Bld) 6 % Normal 3-12 [facility] Comment on above: Performed By: #### C DP, CP #### [address] [place], [facility]83 Systems Software Developer: Daquan Barragan MD Neutrophil (Seg) 60 % Normal 36-65 [facility] Comment on above: Performed By: #### C DP, CP #### [address] [place], [place] [address] Systems Software Developer: Daquan Barragan MD NRBC Automated 0.0 per 100 WBC Normal 0.0 [facility] Comment on above: Performed By: #### C DP, CP #### [facility] [address] [place] [address] Systems Software Developer: Dqauan Barragan MD Platelet mean volume (Bld) [Entitic vol] 8.3 fL Normal 8.1-13.5 [facility] Comment on above: Performed By: #### C DP, CP #### [facility] [address] [place] [address] Systems Software Developer: Daquan Barragan MD Platelets (Bld) [#/Vol] 319 10*3/uL Normal 138-453 [facility] Comment on above: Performed By: #### C DP, CP #### [address] [place] [address] Systems Software Developer: Daquan Barragan MD RBC (Bld) [#/Vol] 5.60 10*6/uL High 3.95-5.11 [facility] Comment on above: Performed By: #### C DP, CP #### [address] [place] [address] Systems Software Developer: Daquan Barragan MD WBC (Bld) [#/Vol] 12.0 10*3/uL High 3.5-11.3 [facility] Comment on above: Performed By: #### C DP, CP #### [address] [place], [facility]83 Systems Software Developer: Daquan Barragan MD Comp Metabolic Profon 2021 (cont.) Normal [facility] Comment on above: Result Comment: Aver age GFR for 40-49 years old: 99 mL/min/1.73sq m Chronic Kidney Disease: <60 mL/min/1.73sq m Kidney failure: <15 mL/min/1.73sq m eGFR calculated using average adult body mass. Additional eGFR calculator available at: http://www.[employer]/multiple_crcl_2011.htm Performed By: #### C DP, CP #### [facility] [address] [place], [place] [address] Systems Software Developer: Daquan Barragan MD Albumin [Mass/Vol] 4.5 g/dL Normal 3.5-5.2 [facility] Comment on above: Performed By: #### C DP, CP #### [facility] [address] [place], [place] [address] Systems Software Developer: Daquan Barragan MD Albumin/Glob Ratio 1.3 Normal 1.0-2.5 [facility] Comment on above: Performed By: #### C DP, CP #### [facility] [address] [place], [place] [address] Systems Software Developer: Daquan Barragan MD Alkaline Phos 97 U/L Normal 35-104 [facility] Comment on above: Performed By: #### C DP, CP #### [facility] [address] [place] [address] [place], [place] [id number] Systems Software Developer: Daquan Barragan MD ALT [Catalytic activity/Vol] 27 U/L Normal 5-33 [facility] Comment on above: Performed By: #### C DP, CP #### [address] [place], [place] [address]83 Systems Software Developer: Daquan Barragan MD Anion gap [Moles/Vol] 13 mmol/L Normal 9-17 [facility] Comment on above: Performed By: #### C DP, CP #### [facility] [address] [place] [address] Dr[place], [place] [address] Systems Software Developer: Daquan Barragan MD AST [Catalytic activity/Vol] 15 U/L Normal <32 [facility] Comment on above: Performed By: #### C DP, CP #### [facility] [address] [place], [place] [address] Systems Software Developer: Daquan Barragan MD Bilirubin [Mass/Vol] 0.26 mg/dL Low 0.3-1.2 [facility] Comment on above: Performed By: #### C DP, CP #### [facility] [address] [place], [place] [phone] Systems Software Developer: Daquan Barragan MD BUN/CRE Ratio 44 High 9-20 [facility] Comment on above: Performed By: #### C DP, CP #### [facility] [address] [place], [place] [address] Systems Software Developer: Daquan Barragan MD Calcium [Mass/Vol] 9.6 mg/dL Normal 8.6-10.4 [facility] Comment on above: Performed By: #### C DP, CP #### [facility] [address] [place], [place] [address] Systems Software Developer: Daquan Barragan MD Chloride [Moles/Vol] 97 mmol/L Low 98-107 [facility] Comment on above: Performed By: #### C DP, CP #### [facility] [address] [place], [place] [address] Systems Software Developer: Daquan Barragan MD CO2 [Moles/Vol] 24 mmol/L Normal 20-31 [facility] Comment on above: Performed By: #### C DP, CP #### [facility] [address] [place], [place] [address] Systems Software Developer: Daquan Barragan MD Creatinine [Mass/Vol] 0.50 mg/dL Normal 0.50-0.90 [facility] Comment on above: Performed By: #### C DP, CP #### [facility] [address] [place], [place] [address]383 Systems Software Developer: Daquan Barragan MD GFR, Amer >60 Normal >60 [facility] Comment on above: Performed By: #### C DP, CP #### [facility] [address] [place], [place] [address] Systems Software Developer: Daquan Barragan MD GFR,non Amer >60 Normal >60 [facility] Comment on above: Performed By: #### C DP, CP #### [facility] [address] [place], [place] [address]783 Systems Software Developer: Daquan Barragan MD Glucose [Mass/Vol] 109 mg/dL High 70-99 [facility] Comment on above: Performed By: #### C DP, CP #### [facility] [address] [place], [place] [address]209[address] Systems Software Developer: Daquan Barragan MD Potassium [Moles/Vol] 4.3 mmol/L Normal 3.7-5.3 [facility] Comment on above: Performed By: #### C DP, CP #### [address] [place], [place] [address]83 Systems Software Developer: Daquan Barragan MD Protein [Mass/Vol] 7.9 g/dL Normal 6.4-8.3 [facility] Comment on above: Performed By: #### C DP, CP #### [address] [place], [place] [address] Systems Software Developer: Daquan Barragan MD Sodium [Moles/Vol] 134 mmol/L Low 135-144 [facility] Comment on above: Performed By: #### C DP, CP #### [facility] [address] [place] [address] [place], [place] 8[address]83 Systems Software Developer: Daquan Barragan MD Staging: Normal [facility] Comment on above: Result Comment: Stag e 1: Some kidney damage normal GFR Stage 2: Mild kidney damage GFR 60-89 Stage 3: Moderate kidney damage GFR 30-59 Stage 4: Severe kidney damage GFR 15-29 Stage 5: Severe kidney damage GFR <15 ESRD - chronic treatment by dialysis or transplant Performed By: #### C DP, CP #### [facility] [address] [place], [place] [address] Systems Software Developer: Daquan Barragan MD Urea nitrogen [Mass/Vol] 22 mg/dL High 6-20 [facility] Comment on above: Performed By: #### C DP, CP #### [facility] [address] [place], [place] [address]83 Systems Software Developer: Daquan Barragan MD Urinalysis, Routineon 2021 Bilirubin, SemiQt,Ur Negative Normal NEG [facility] Comment on above: Performed By: #### U A, UMICAO #### [facility] [address] [place], [place] [phone] Systems Software Developer: Daquan Barragan MD Blood, Urine 3+ Abnormal NEG [facility] Comment on above: Performed By: #### U A, UMICAO #### [facility] [address] [place] [address] Systems Software Developer: Daquan Barragan MD Clarity (U) Clear Normal CLEAR [facility] Comment on above: Performed By: #### U A, UMICAO #### [facility] [address] [address] [place], [place] [id number] Systems Software Developer: Daquan Barragan MD Color (U) Yellow Normal YEL [facility] Comment on above: Performed By: #### U A, UMICAO #### [facility] [address] [place], [place] [address] Systems Software Developer: Daquan Barragan MD Glucose Ql (U) Negative Normal NEG [facility] Hospital Comment on above: Performed By: #### U A, UMICAO #### [facility] [address] [place], [place] [id number] Systems Software Developer: Daquan Barragan MD Ketones Ql (U) Negative Normal NEG [facility] Comment on above: Performed By: #### U A, UMICAO #### [facility] [address] [place], [place] [id number] Systems Software Developer: Daquan Barragan MD Leukocyte esterase Test strip Ql (U) Negative Normal NEG [facility] Comment on above: Performed By: #### U A, UMICAO #### [facility] [address] [place] [address] [address] [place], [place] [id number] Systems Software Developer: Daquan Barragan MD Nitrite,Ur Negative Normal NEG [facility] Comment on above: Performed By: #### U A, UMICAO #### [facility] [address] [place] [address] [place] [address] Systems Software Developer: Daquan Barragan MD PH,Ur 5.5 Normal 5.0-9.0 [facility] Comment on above: Performed By: #### U A, UMICAO #### [address] [place] [address] Systems Software Developer: Daquan Barragan MD Protein Ql (U) Negative Normal NEG [facility] Comment on above: Performed By: #### U A, UMICAO #### [address] [place] [address] Systems Software Developer: Daquan Barragan MD Spec. [place],Ur >1.030 High 1.010-1.020 [facility] Comment on above: Performed By: #### U A, UMICAO #### [address] [place] [address] Systems Software Developer: Daquan Barragan MD Urobilinogen,Ur Normal Normal NORM [facility] Comment on above: Performed By: #### U A, UMICAO #### [facility] [address] [place] [address] [place] [address] Systems Software Developer: Daquan Barragan MD Urinalysis,Microon 2 Bacteria 3+ Abnormal NONE [facility] Comment on above: Performed By: #### U A, UMICAO #### [address] [place] [address] Systems Software Developer: Daquan Barragan MD Epithelial cells LM Ql (Urine sed) 5 TO 10 Normal 0-25 [facility] Comment on above: Performed By: #### U A, UMICAO #### [facility] [address] [place] [address] Systems Software Developer: Daquan Barragan MD Mucus Strands 2+ Abnormal NONE [facility] Comment on above: Performed By: #### U A, UMICAO #### [facility] [address] [place] [address] Systems Software Developer: Daquan Barragan MD Urine RBC's 5 TO 10 Normal 0-2 [facility] Comment on above: Performed By: #### U A, UMICAO #### [facility] [address] [place] [address] Systems Software Developer: Daquan Barragan MD Urine WBC's 2 TO 5 Normal 0-5 [facility] Comment on above: Performed By: #### U A, UMICAO #### [facility] [address] [place] [address] Systems Software Developer: Daquan Barragan MD MRI ABDOMEN W WO CONTRASTon 03-23-2019 MRI ABDOMEN W WO CONTRAST EXAMINATION: MRI OF THE ABDOMEN WITHOUT AND WITH CONTRAST, 03/19/2019 1:24 pm TECHNIQUE: Multiplanar multisequence MRI of the abdomen was performed without and with the administration of intravenous contrast. COMPARISON: CT abdomen and pelvis 03/06/2019, 11/06/2017, and 04/26/2012 HISTORY: ORDERING SYSTEM PROVIDED HISTORY: Pain TECHNOLOGIST PROVIDED HISTORY: Ordering Physician Provided Reason for Exam: PAIN IN RIGHT SIDE RIB AREA/ BACK X8 MONTHS Acuity: Acute Type of Exam: Unknown FINDINGS: The visualized lung bases reveal no signal abnormality. No morphologic evidence for cirrhosis. No evidence for steatosis. A 4.8 x 4.0 x 3.8 cm T2 hyperintense, low T1 and subtle peripheral discontinuous nodular enhancing (best demonstrated on coronal series 43, image 19) mass is demonstrated in segment 7 consistent with a hemangioma. No suspicious liver lesion identified. The hepatic and portal venous systems are patent. The gallbladder is not visualized. No biliary dilatation. No choledocholithiasis. 14 mm T2 hyperintense lesion in the posterior spleen is noted that demonstrates gradual enhancement at is isointense to the splenic parenchyma on the delayed phases, consistent with a benign findings suggestive of hemangioma. The spleen is otherwise unremarkable. The adrenal glands and kidneys reveal no signal abnormality. The visualized bowel is normal in caliber. No ascites. The aorta is normal in caliber. No lymphadenopathy. No signal abnormality identified in the visualized osseous structures. Mild disc disease in the lower lumbar spine. 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 Benign-appearing splenic lesion most consistent with a hemangioma. Interpreted by: Mitul Alonzo MD Signed by: Mitul Alonzo MD 03/23/19 Final result Normal [facility] MRI LUMBAR SPINE W WO CONTRA STon 03-20-2019 MRI LUMBAR SPINE W WO CONTRAST EXAMINATION: MRI OF THE LUMBAR SPINE WITHOUT AND WITH CONTRAST 03/19/2019 1:19 pm TECHNIQUE: Multiplanar multisequence MRI of the lumbar spine was performed without and with the administration of intravenous contrast. COMPARISON: November 18, 2017. HISTORY: ORDERING SYSTEM PROVIDED HISTORY: Postlaminectomy syndrome TECHNOLOGIST PROVIDED HISTORY: Ordering Physician Provided Reason for Exam: PAIN IN LOW BACK AND RIGHT LEG CHRONIC Acuity: Chronic Type of Exam: Unknown FINDINGS: BONES/ALIGNMENT: Status post posterior lumbar fusion at L4-L5 with associated laminectomies. There appears to be disc spacers at L4-L5, and L5-S1. The lumbar vertebral body heights are within normal limits. There is no evidence of significant spondylolisthesis. No evidence of acute discitis, or osteomyelitis. SPINAL CORD: The conus appears unremarkable. No evidence of abnormal signal. SOFT TISSUES: No significant paraspinous abnormalities. L1-L2: Mild broad disc bulge. Tiny central disc bulge. Mild bilateral facet degenerative changes. No significant neural foraminal stenosis. No significant spinal canal stenosis. L2-L3: No significant disc herniation. No significant facet degenerative changes. No significant spinal canal stenosis. No significant neural foraminal stenosis. L3-L4: No significant disc herniation. No significant neural foraminal stenosis. No significant spinal canal stenosis. Mild bilateral facet degenerative changes. L4-L5: Status post previous laminectomies with posterior decompression. Moderate bilateral facet degenerative changes. No significant neural foraminal stenosis. No significant spinal canal stenosis. No significant lateral recess stenosis. L5-S1: Minimal residual disc osteophyte complex. Mild bilateral facet degenerative changes. Mild left neural foraminal stenosis. No significant right neural foraminal stenosis. No significant spinal canal stenosis. IMPRESSION: 1. Status post posterior lumbar fusion at L4-L5 with laminectomies, as detailed above. 2. Mild multilevel degenerative changes of the lumbar spine, without significant spinal canal stenosis. 3. No evidence of abnormal pathologic contrast enhancement. Interpreted by: Jose M Buchanan MD Signed by: Jose M Buchanan MD 03/20/19 Final result Normal [facility] Vital Signs Date Time Vital Sign Value Performing Clinician Facility 05-02-2023 21:20-0400 Diastolic blood pressure 90 mm[Hg] Gabriel Cliftone [facility] 05-02-2023 21:20-0400 Heart rate 78 /min Gabriel Cliftone [facility] 05-02-2023 21:20-0400 Hourly Rounding Gabriel Cliftone [facility] 05-02-2023 21:20-0400 Promise to Return Gabriel Cliftone [facility] 05-02-2023 21:20-0400 Respiratory rate 16 /min Gabriel Cliftone [facility] 05-02-2023 21:20-0400 SaO2% (BldA) [Mass fraction] 99 % Gabriel Jasmin [facility] 05-02-2023 21:20-0400 Systolic blood pressure 160 mm[Hg] Gabriel Jasmin [facility] 05-02-2023 20:20-0400 Diastolic blood pressure 88 mm[Hg] Gabriel Jasmin [facility] 05-02-2023 20:20-0400 Heart rate 76 /min Gabriel Cliftone [facility] 05-02-2023 20:20-0400 Hourly Rounding Gabriel Jasmin [facility] 05-02-2023 20:20-0400 Mean blood pressure 111 mm[Hg] Gabriel Jasmin [facility] 05-02-2023 20:20-0400 Promise to Return Gabriel Jasmin [facility] 05-02-2023 20:20-0400 Respiratory rate 16 /min Gabriel Jasmin [facility] 05-02-2023 20:20-0400 SaO2% (BldA) [Mass fraction] 98 % Gabriel Jasmin [facility] 05-02-2023 20:20-0400 Systolic blood pressure 158 mm[Hg] Gabriel Jasmin [facility] 05-02-2023 19:20-0400 Diastolic blood pressure 90 mm[Hg] Gabriel Jasmin [facility] 05-02-2023 19:20-0400 Heart rate 78 /min Gabriel Jasmin [facility] 05-02-2023 19:20-0400 Hourly Rounding Gabriel Jasmin [facility] 05-02-2023 19:20-0400 Promise to Return Gabriel Jasmin [facility] 05-02-2023 19:20-0400 Respiratory rate 16 /min Gabriel Jasmin [facility] 05-02-2023 19:20-0400 SaO2% (BldA) [Mass fraction] 98 % Gabriel Jasmin [facility] 05-02-2023 19:20-0400 Systolic blood pressure 161 mm[Hg] Gabriel Jasmin [facility] 05-02-2023 17:24-0400 Body temperature 98.06 [degF] Gabriel Fournier [facility] 05-02-2023 14:30-0400 Body height 175.26 cm Adiel Lux Other [facility] [employer] Other 05-02-2023 14:30-0400 Body mass index (BMI) [Ratio] 68.81 kg/m2 Adiel Lux Other [facility] Other 05-02-2023 14:30-0400 Body weight 211.38 kg Adiel Lux Other [facility] Other 05-02-2023 14:30-0400 Diastolic blood pressure 65 mm[Hg] Adiel Lux Other [facility] Other 05-02-2023 14:30-0400 Systolic blood pressure 169 mm[Hg] Adiel Lux Other [facility] Other 02-22-2023 15:00-0400 Body height 175.26 cm Adiel Lux Other [employer] Other 02-22-2023 15:00-0400 Body mass index (BMI) [Ratio] 68.81 kg/m2 Adiel Lux Other [facility] Other 02-22-2023 15:00-0400 Body weight 211.38 kg Adiel Lux Other [employer] Other 02-22-2023 15:00-0400 Diastolic blood pressure 74 mm[Hg] Adiel Lux Other [employer] Other 02-22-2023 15:00-0400 Systolic blood pressure 141 mm[Hg] Adiel Lux Other [employer] Other 11-29-2022 14:30-0400 Body height 175.26 cm Adiel Lux Other [employer] Other 11-29-2022 14:30-0400 Body mass index (BMI) [Ratio] 67.04 kg/m2 Adiel Lux Other [employer] Other 11-29-2022 14:30-0400 Body weight 205.93 kg Adiel Lux Other [employer] Other 11-29-2022 14:30-0400 Diastolic blood pressure 86 mm[Hg] Adiel Lux Other [employer] Other 11-29-2022 14:30-0400 SaO2% (BldA) [Mass fraction] 98 % Adiel Lux Other [employer] Other 11-29-2022 14:30-0400 Systolic blood pressure 142 mm[Hg] Adiel Lux Other [employer] Other Encounters Encounter Date Encounter Type Care Provider Facility Start: 09-08-2023 End: 09-08-2023 ambulatory Adiel Lux Other [employer] Other Start: 09-08-2023 Telephone encounter Adiel Lux [facility] Start: 08-24-2023 End: 08-24-2023 ambulatory Adiel Lux Other [employer] Other Start: 08-24-2023 Telephone encounter Adiel Lux [facility] Start: 08-23-2023 End: 08-23-2023 ambulatory Adiel Lux Other [employer] Other Start: 08-23-2023 Telephone encounter Adiel Lux [facility] Start: 08-03-2023 End: 08-03-2023 ambulatory Adiel Lux Other [employer] Other Start: 08-03-2023 Telephone encounter Adiel Lux [facility] Start: 08-02-2023 End: 08-02-2023 ambulatory Adiel Lux Other [employer] Other Start: 08-02-2023 Telephone encounter Adiel Lux [facility] Start: 07-29-2023 End: 07-29-2023 ambulatory Adiel Lux Other [employer] Other Start: 07-29-2023 Telephone encounter Adiel Lux [facility] Start: 07-05-2023 End: 07-05-2023 ambulatory Adiel Lux Other [employer] Other Start: 07-05-2023 Telephone encounter Adiel Lux [facility] Start: 06-29-2023 End: 06-29-2023 ambulatory Adiel Lux Other [employer] Other Start: 06-29-2023 Telephone encounter Adiel Lux [facility] Start: 06-23-2023 End: 06-24-2023 ambulatory Nicole Carlton Facility:[facility] Start: 06-15-2023 End: 06-15-2023 ambulatory Adiel Lux Other [employer] Other Start: 06-15-2023 Telephone encounter Adiel Lux [facility] Start: 06-07-2023 End: 06-07-2023 ambulatory Adiel Lux Other [employer] Other Start: 06-07-2023 Telephone encounter Adiel Lux [facility] Start: 05-31-2023 End: 05-31-2023 ambulatory Adiel Lux Other [employer] Other Start: 05-31-2023 Telephone encounter Adiel Lux [facility] Start: 05-13-2023 End: 05-13-2023 ambulatory Adiel Lxu Other [employer] Other Start: 05-13-2023 Telephone encounter Adiel Lux [facility] [employer] [facility] Start: 05-09-2023 End: 05-09-2023 ambulatory Adiel Lux Other [employer] Other Start: 05-09-2023 Telephone encounter Adiel Lux [facility] Start: 05-06-2023 End: 05-06-2023 ambulatory Adiel Lux Other [employer] Other Start: 05-06-2023 Telephone encounter Adiel Lux [facility] Start: 05-04-2023 ambulatory [facility] Facility:[facility] Start: 05-02-2023 End: 05-02-2023 Emergency department patient visit [facility] Facility[facility] Start: 05-02-2023 End: 05-02-2023 Emergency department patient visit [facility] Start: 05-02-2023 End: 05-02-2023 ambulatory Adiel Lux Other [employer] Other Start: 05-02-2023 Office outpatient vi sit 25 minutes Adiel Lux [facility] Start: 05-02-2023 Telephone encounter Adiel Lux [facility] Start: 04-21-2023 End: 04-21-2023 ambulatory Jeyson Alcantar Other [employer] Other Start: 04-21-2023 Telephone encounter Jeyson Ortiz [facility] Start: 04-07-2023 End: 04-07-2023 ambulatory Adiel Lux Other [employer] Other Start: 04-07-2023 Telephone encounter Adiel Lux [facility] Start: 03-30-2023 End: 03-30-2023 ambulatory Adiel Lux Other [employer] Other Start: 03-30-2023 Telephone encounter Adiel Lux [facility] [employer] [facility] Start: 03-28-2023 End: 03-28-2023 ambulatory Adiel Lux Other [employer] Other Start: 03-28-2023 Telephone encounter Adiel Lux [facility] Start: 03-21-2023 End: 03-21-2023 ambulatory Adiel Lux Other [employer] Other Start: 03-21-2023 Telephone encounter Adiel Lux [facility] Start: 02-22-2023 End: 02-22-2023 ambulatory Adiel Lux Other [facility] Other Start: 02-22-2023 Office outpatient vi sit 25 minutes Adiel Lux [facility] Start: 02-22-2023 Telephone encounter Adiel Lux [facility] Start: 02-07-2023 End: 02-07-2023 ambulatory Adiel Lux Other [employer] Other Start: 02-07-2023 Telephone encounter Adiel Lux [facility] Start: 01-26-2023 End: 01-26-2023 ambulatory Adiel Lux Other [employer] Other Start: 01-26-2023 Telephone encounter Adiel Lux [facility] Start: 01-11-2023 End: 01-11-2023 ambulatory Adiel Lux Other [employer] Other Start: 01-11-2023 Telephone encounter Adiel Lux [facility] Start: 01-10-2023 End: 01-10-2023 ambulatory Adiel Lux Other [employer] Other Start: 01-10-2023 Telephone encounter Adiel Lux [facility] Start: 01-03-2023 End: 01-03-2023 ambulatory Adiel Lux Other [employer] Other Start: 01-03-2023 Telephone encounter Adiel Lux [facility] Start: 12-29-2022 End: 12-29-2022 ambulatory Adiel Lux Other [employer] Other Start: 12-29-2022 Telephone encounter Adiel Lux [facility] Start: 12-17-2022 End: 12-17-2022 ambulatory FARHAT JORDAN Facility:[facility] Start: 12-17-2022 End: 12-17-2022 ambulatory Farhat Jordan PA-C Work Phone: [facility] Comment on above: Cervical spondylosis with myelopathy (Primary Dx); Chronic bilateral low back pain without sciatica; S/P lumbar fusion Start: 12-17-2022 End: 12-17-2022 Telemedicine consultation with patient Farhat MCALLISTER-C Work Phone: [facility] Start: 12-10-2022 End: 12-10-2022 ambulatory Adiel Lux Other [employer] Other Start: 12-10-2022 Telephone encounter Adiel Lux [facility] Start: 12-09-2022 End: 12-09-2022 ambulatory Adiel Lux Other [employer] Other Start: 12-09-2022 Telephone encounter Adiel Lux [facility] Start: 12-08-2022 End: 12-08-2022 ambulatory Adiel Lux Other [employer] Other Start: 12-08-2022 Telephone encounter Adiel Lux [facility] Start: 12-02-2022 End: 12-02-2022 ambulatory Adiel Lux Other [employer] Other Start: 12-02-2022 Telephone encounter Adiel Lux [facility] Start: 11-29-2022 End: 11-29-2022 ambulatory Adiel Lux Other [employer] Other Start: 11-29-2022 Encounter for genera l adult medical examination without abnormal findings Adiel Lux [facility] Start: 11-29-2022 Periodic preventive med est patient 40-64yrs Adiel Lux [facility] Start: 11-15-2022 End: 11-15-2022 ambulatory Adiel Lux Other [facility] Other Start: 11-15-2022 Telephone encounter Adiel Lux [facility] Start: 09-15-2022 End: 09-15-[address] ADIEL LUX Facility: Start: 09-14-2022 Adult health examination Nima Alcantar Other [employer] Other Start: 09-14-2022 Problem, abnormal examination Jeyson Alcantar Other [employer] Other Start: 05-12-2022 Telephone encounter Allyson Victor RN Work Phone: General Surgery Comment on above: Appointment Start: 05-11-2022 ambulatory Physician Unlisted Faci lity:[facility] Start: 05-11-2022 End: 05-11-2022 Emergency department patient visit ADIEL LUX [facility] Start: 02-12-[address] ADIEL LUX Facil ity:[facility] Start: 03-19-2019 End: 03-22-2019 Patient encounter procedure ADIEL LUX [facility] Start: 11-02-2017 End: 11-03-2017 Patient encounter procedure PROVIDER UNKNOWN Facility:[facility] Procedures Date Procedure Procedure Detail Performing Clinician Start: 03-19-2019 Mri spinal canal lum bar w/o & w/contr matrl VANE QUINONEZ Start: 03-19-2019 Mri abdomen w/o & w/contrast material VANE QUINONEZ Start: 03-27-2018 Screening mammography B ened Alcant[facility] Other Start: 05-28-2016 History of lumbar fusion Gabriel Fournier Start: 05-25-2016 General examination of patient Jeyson Alcantar Other Appendectomy Gabriel Fournier Cholecystectomy Gabriel Fournier Olvin filter, lynette evice (physical object) Gabriel Fournier History of appendectomy S/P appendectomy Allyson Vieira RN Work Phone: History of total hysterectomy S/P MIGUEL (total abdominal hysterectomy) Allyson Vieira RN Work Phone: Hysterectomy Gabriel Fournier Magnetic resonance imaging Gabriel Fournier Comment on above: 09-02-16 removal olvin filter Jeannette patsy Fournier Screening for malign ant neoplasm of breast Jeyson Alcantar Other Plan of Treatment Date Care Activity Detail Author Start: 05-12-2025 DIABETES SCREEN DIABETES SCREEN [facility] Start: 05-20-2022 Influenza vaccination INFLUENZA (#1) [facility] Start: 2021 COLOGUARD (FIT-DNA) COLOGUARD (FIT-D NA) [facility] Start: 2021 Colonoscopy COLONOSCOPY [facility] Start: 2021 COLORECTAL CANCER SCREENING COLORECTAL CANCER SCREENING [facility] Start: [address] COLONOGRAPHY [facility] Start: 2021 DIABETES SCREEN DIABETES SCREEN [facility] Start: 2021 FECAL OCCULT BLOOD FECAL OCCULT BLOO D [facility] Start: 2021 LIPID SCREEN LIPID SCREEN [facility] Start: 2021 SIGMOIDOSCOPY SIGMOIDOSCOPY [facility] Start: 01-31-2021 COVID-19 VACCINE (3 - Booster for Pfizer series) COVID-19 VACCINE (3 - Booster for Pfizer series) [facility] Start: 2016 Mammography MAMMOGRAM [facility] Start: 2006 HPV TESTING HPV TESTING [facility] Start: 1997 PAP TESTING PAP TESTING [facility] Start: 1995 Urine microalbumin profile DTAP,TDAP ,TD (1 - Tdap) [facility] Start: 1994 HEPATITIS C SCREENING HEPATITIS C SC REENING [facility] Start: 1994 HIV SCREENING HIV SCREENING [facility] Start: 1988 Adult depression scr eening assessment DEPRESSION SCREENING [facility] Start: 1982 PNEUMOCOCCAL (1 - PCV) PNEUMOCOCCAL (1 - PCV) [facility] Start: 04-29-1977 COVID-19 VACCINE (#1) COVID-19 VACCI NE (#1) [facility] Start: 1976 HEPATITIS B (1 of 3 - 3-dose series) HEPATITIS B (1 of 3 - 3-dose series) [facility] Immunizations Immunization Date Immunization Notes Care Provider Siomara soria 12-06-2020 COVID-19 Vaccine Pfi zer - Documentation Purposes Only Jeyson Alcantar Other [facility] Other 11-15-2020 COVID-19 Vaccine Pfi zer - Documentation Purposes Only Jeyson Alcantar Other [facility] Other 07-17-2020 influenza virus vaccine, split virus (incl. purified surface antigen) Jeyson Alcantar Other [facility] Other 07-17-2020 pneumococcal polysaccharide vaccine, 23 valent Jeyson Alcantar Other [facility] Other 11-26-2019 influenza virus vaccine, split virus (incl. purified surface antigen) Jeyson Alcantar Other [facility] Other Payers Date Payer Category Payer Unknown 2014 Medicaid [id number] 1976 Unknown [id number] 2.16.8 [id number] 1976 Unknown [id number] 2.16.8 [id number] 1976 Unknown [id number] 2.16.8 [id number] 1976 Unknown [id number] 2.16.8 [id number] 1976 Unknown [id number] 2.16. [id number] 1976 Unknown [id number] 2.16.84 [id number] 1976 Unknown [id number] 2.16.84 [id number] 1976 Unknown [id number] 2.16.8 [id number] 1976 Unknown [id number] 2.16.8 [id number] 1976 Unknown [id number] 2.16.8 [id number] 1959 Self-pay [id number] 1958 Unknown [id number] Social History Date Type Detail Facility [facility]: [facility] History of tobacco use [facility]igarette [facility] Start: 03-03-2016 Cigarettes smoked current (pack per day) - Reported 0.5 [facility] Start: 03-03-2016 End: 05-12-2022 Alcohol intake Not Asked [facility] Start: 1975 Sex Assigned At Not on file [facility] Start: 05-01-2022 End: 05-11-2022 Exposure to SARS-CoV-2 (event) Not sure [facility] Sex Assigned At [facility] Tobacco [facility] Comment on above: quit Tobacco smoking status No Smokin g Status Entered [facility] [facility] Functional Status Date Assessment Result Facility 05-02-2023 Functional Status N/A [facility] Clinical Notes 05-12-2022 to 06-23-2023 Note Date & Type Note Facility 06-23-2023 Note Radiology Colonoscopy, Adult A colonoscopy is a procedure to look at the entire large intestine. This procedure is done using a long, thin, flexible tube that has a camera on the end. You may have a colonoscopy: ? As a part of normal colorectal screening. ? If you have certain symptoms, such as: ? A low number of red blood cells in your blood (anemia). ? Diarrhea that does not go away. ? Pain in your abdomen. ? Blood in your stool. A colonoscopy can help screen for and diagnose medical problems, including: ? An abnormal growth of cells or tissue (tumor). ? Abnormal growths within the lining of your intestine (polyps). ? Inflammation. ? Areas of bleeding. Tell your health care provider about: ? Any allergies you have. ? All medicines you are taking, including vitamins, herbs, eye drops, creams, and yhvx-fah-wicljnp medicines. ? Any problems you or family members have had with anesthetic medicines. ? Any bleeding problems you have. ? Any surgeries you have had. ? Any medical conditions you have. ? Any problems you have had with having bowel movements. ? Whether you are or may be . What are the risks? Generally, this is a safe procedure. However, problems may occur, including: ? Bleeding. ? Damage to your intestine. ? Allergic reactions to medicines given during the procedure. ? Infection. This is rare. What happens before the procedure? Eating and drinking restrictions Follow instructions from your health care provider about eating or drinking restrictions, which may include: ? A few days before the procedure: ? Follow a low-fiber diet. ? Avoid nuts, seeds, dried fruit, raw fruits, and vegetables. ? 1?3 days before the procedure: ? Eat only gelatin dessert or ice pops. ? Drink only clear liquids, such as water, clear juice, clear broth or bouillon, black coffee or tea, or clear soft drinks or sports drinks. ? Avoid liquids that contain red or purple dye. ? The day of the procedure: ? Do not eat solid foods. You may continue to drink clear liquids until up to 2 hours before the procedure. ? Do not eat or drink anything starting 2 hours before the procedure, or within the time period that your health care provider recommends. Bowel prep If you were prescribed a bowel prep to take by mouth (orally) to clean out your colon: ? Take it as told by your health care provider. Starting the day before your procedure, you will need to drink a large amount of liquid medicine. The liquid will cause you to have many bowel movements of loose stool until your stool becomes almost clear or light green. ? If your skin or the opening between the buttocks (anus) gets irritated from diarrhea, you may relieve the irritation using: ? Wipes with medicine in them, such as adult wet wipes with aloe and vitamin E. ? A product to soothe skin, such as petroleum jelly. ? If you vomit while drinking the bowel prep: ? Take a break for up to 60 minutes. ? Begin the bowel prep again. ? Call your health care provider if you keep vomiting or you cannot take the bowel prep without vomiting. ? To clean out your colon, you may also be given: ? Laxative medicines. These help you have a bowel movement. ? Instructions for enema use. An enema is liquid medicine injected into your rectum. Medicines Ask your health care provider about: ? Changing or stopping your regular medicines or supplements. This is especially important if you are taking iron supplements, diabetes medicines, or blood thinners. ? Taking medicines such as aspirin and ibuprofen. These medicines can thin your blood. Do not take these medicines unless your health care provider tells you to take them. ? Taking nadv-qzp-qtoscig medicines, vitamins, herbs, and supplements. General instructions ? Ask your health care provider what steps will be taken to help prevent infection. These may include washing skin with a germ-killing soap. ? If you will be going home right after the procedure, plan to have a responsible adult: ? Take you home from the hospital or clinic. You will not be allowed to drive. ? Care for you for the time you are told. What happens during the procedure? ? An IV will be inserted into one of your veins. ? You will be given a medicine to make you fall asleep (general anesthetic). ? You will lie on your side with your knees bent. ? A lubricant will be put on the tube. Then the tube will be: ? Inserted into your anus. ? Gently eased through all parts of your large intestine. ? Air will be sent into your colon to keep it open. This may cause some pressure or cramping. ? Images will be taken with the camera and will appear on a screen. ? A small tissue sample may be removed to be looked at under a microscope (biopsy). The tissue may be sent to a lab for testing if any signs of problems are found. ? If small polyps are found, they may be removed and checked for cancer cells. (more content not included)... [facility] 05-06-2023 Evaluation note Encounter Date Diagnosis Assessment Notes Apr, Lumbosacral spondylosis (ICD-10 - M47.817) [facility] Other 08-14-2023 Hospital Discharge instructions Patient Education 05/02/2023 21:28:45 Abdominal Pain, Adult, Wytg-vp-Xufy Abdominal Pain, Adult Many things can cause belly (abdominal) pain. Most times, belly pain is not dangerous. Many cases of belly pain can be watched and treated at home. Sometimes, though, belly pain is serious. Your doctor will try to find the cause of your belly pain. Follow these instructions at home: Medicines Take htfh-yde-wkjjxyw and prescription medicines only as told by your doctor. Do not take medicines that help you poop (laxatives) unless told by your doctor. General instructions Watch your belly pain for any changes. Drink enough fluid to keep your pee (urine) pale yellow. Keep all follow-up visits as told by your doctor. This is important. Contact a doctor if: Your belly pain changes or gets worse. You are not hungry, or you lose weight without trying. You are having trouble pooping (constipated) or have watery poop (diarrhea) for more than 2 3 days. You have pain when you pee or poop. Your belly pain wakes you up at night. Your pain gets worse with meals, after eating, or with certain foods. You are vomiting and cannot keep anything down. You have a fever. You have blood in your pee. Get help right away if: Your pain does not go away as soon as your doctor says it should. You cannot stop vomiting. Your pain is only in areas of your belly, such as the right side or the left lower part of the belly. You have bloody or black poop, or poop that looks like tar. You have very bad pain, cramping, or bloating in your belly. You have signs of not having enough fluid or water in your body (dehydration), such as: ?Dark pee, very little pee, or no pee. ?Cracked lips. ?Dry mouth. ?Sunken eyes. ?Sleepiness. ?Weakness. You have trouble breathing or chest pain. Summary Many cases of belly pain can be watched and treated at home. Watch your belly pain for any changes. Take vtgw-jin-shfcqoo and prescription medicines only as told by your doctor. Contact a doctor if your belly pain changes or gets worse. Get help right away if you have very bad pain, cramping, or bloating in your belly. This information is not intended to replace advice given to you by your health care provider. Make sure you discuss any questions you have with your health care provider. Document Revised: 01/14/2020 Document Reviewed: 01/14/2020 [employer] Patient Education 2022 [employer]. Follow Up Care 05/02/2023 17:14:10 With:Celso ASTUDILLO Address: [address] [place] [address]. [address] [place] [id number] Business (1) When:05/05/2023 20:39:25 With:ADIEL LUX Address: [address] [place], [place] [id number]- Business (1) When:05/05/2023 20:39:14 Comments:Follow-up with your primary care provider in 3 to 5 days. If symptoms worsen, do not improve, or new symptoms arise please report back to emergency department for further evaluation. [facility]08-14-2023 Evaluation note* Encounter Date Diagnosis Assessment Notes Treatment Notes Treatment Clinical Notes Apr, Lumbosacral spondylosis (ICD-10 - M47.817) [facility] Other 08-14-2023 Evaluation note* Encounter Date Diagnosis Assessment Notes Treatment Notes Treatment Clinical Notes Apr, Left-sided chest pain (ICD-10 - R07.9) Discussed ER v. outpatient testing. She does not want to go to ER. Tests ordered, but she understands to go to ER if symptoms worsen. Apr, LUQ abdominal pain (ICD-10 - R10.12) CT order sent to [facility]. It will need to be cleared w her insurance. Pt understands this could take several days. ER if symptoms worsen. [facility] Other 08-03-2023 Evaluation note* Encounter Date Diagnosis Assessment Notes Treatment Notes Treatment Clinical Notes Apr, Lumbosacral spondylosis (ICD-10 - M47.817) [facility] Other 07-10-2023 Evaluation note* Encounter Date Diagnosis Assessment Notes Treatment Notes Treatment Clinical Notes Mar, Lumbosacral spondylosis (ICD-10 - M47.817) [facility] Other 06-06-2023 Evaluation note* Encounter Date Diagnosis Assessment Notes Treatment Notes Treatment Clinical Notes Feb, Moderate episode of recurrent major depressive disorder (ICD-10 - F33.1) Months out on psychiatry referral. Will add rexulti, per patient's request. Feb, OAB (overactive bladder) (ICD-10 - N32.81) Samples of myrbetriq given. Feb, Degenerative lumbar disc (ICD-10 - M51.36) Reviewed [facility]. Continue treatment plan. F.u 3 months Feb, Adult ADHD (ICD-10 - F90.9) as above Feb, Anxiety associated with depression (ICD-10 - F41.8) stable - as above. [facility] Other 05-10-2023 Evaluation note* Encounter Date Diagnosis Assessment Notes Treatment Notes Treatment Clinical Notes January, Lumbosacral spondylosis (ICD-10 - M47.817) [facility] Other 04-12-2023 Evaluation note* Encounter Date Diagnosis Assessment Notes Treatment Notes Treatment Clinical Notes Dec, Lumbosacral spondylosis (ICD-10 - M47.817) [facility] Other 03-31-2023 NoteHNO ID: [id number] Author: Farhat Jordan PA-C Service: ? Author Type: Physician Pediatric Dermatologist Type: Progress Notes Filed: 12/17/2022 11:53 AM Note Text: SPINE OUTPATIENT CONSULT This is a virtual visit using Touchstorm video visit. It required patient-provider interaction for the medical decision making as documented below. I have communicated my name and active licensure. The patient's identity and physical location were verified at the time of this visit. Either the patient or their legal tax representative has been informed of the risks and benefits of -- and alternatives to -- treatment through a remote evaluation and consents to proceed with the evaluation remotely. SERVICE DATE: 12/17/2022 PCP: Adiel Lux MD REFERRING PROVIDER: Adiel Lux ([facility]) [address] [facility] [phone] Consult requested for an opinion regarding the evaluation and treatment of low back pain. My final impression and recommendations will be communicated back to the requesting physician by way of the shared medical record or letter via US mail. SUBJECTIVE Tabby Jay is a 47 year old female CHIEF COMPLAINT: low back pain, numbness in the hands, declining dexterity and balance HISTORY OF PRESENT ILLNESS PRECIPITATING EVENT: None DURATION OF SYMPTOMS: Greater Than 1 Year Seen virtually for low back pain. Hx of lumbar fusion 5 years ago at [facility]. Did well after surgery but the pain has continued to progress. Low back pain. Occurs constantly, no specific aggravation. No radiation into the legs. Over the last year she's also developed hand numbness She experiences intermittent numbness in the legs as well. Numbness occurs in the night and day, not positional. Denies any hx of DM. At night she's now wearing compression gloves because she'll also experience pain in the hands. No radiating pain. Describes worsening balance and dexterity over the last year as well. She feels like at times she does not have feeling in her legs. She's had several falls because of this. Using a cane for stability. 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 She's also undergoing workup on this. PAIN EVALUATION 12/17/2022 1111 Pain Level: 8 Pain Location: Back-Lower Description: Crushing;Sharp Frequency: Continuous Intervention/Comfort measure: Medication;Relaxation;Cold PREVIOUS CONSERVATIVE TREATMENTS: Narcotics Previous ablations Previous PT locally Works with local PCP for pain management PREVIOUS SPINAL SURGERY: SURGERY #1: Lumbar fusion 5 years ago in [place] ACTIVE PROBLEM LIST Piriformis Syndrome Morbid Obesity (Hcc) Adnexal Mass S/P Miguel (Total Abdominal Hysterectomy) S/P Appendectomy Pseudotumor Cerebri Anxiety and Depression Smoker Migraines Chronic Pain Syndrome Bmi 60.0-69.9, Adult (Hcc) Urinary Incontinence Acute Midline Low Back Pain With Right-Sided Sciatica PAST MEDICAL HISTORY Diagnosis Date Anxiety and depression Chronic pain syndrome Migraines Pseudotumor cerebri S/P appendectomy S/P MIGUEL (total abdominal hysterectomy) Smoker PAST SURGICAL HISTORY Procedure Laterality Date CHOLECYSTECTOMY CHOLECYSTECTOMY TONSILLECTOMY AND ADENOIDECTOMY TOTAL ABDOMINAL HYSTERECT W/WO RMVL TUBE OVARY US ABDOMEN COMPLETE FAMILY HISTORY Problem Relation Age of Onset Heart Father Hypertension Father Diabetes Mother Social History Tobacco Use Smoking status: Every Day Packs/day: 0.50 Years: 9.00 Pack years: 4.50 Types: Cigarettes ALLERGIES Allergen Reactions Aspirin Ciprofloxacin Swelling Solumedrol [Methylp* Shortness of Breath Tape [Adhesive Tape* Other: See Comments Tears skin Off Toradol [Ketorolac * Swelling, Itching MEDICATIONS: ALPRAZolam (XANAX) 0.5 mg tablet 0.5 mg three times daily. FLUoxetine (PROZAC) 20 mg capsule 40 mg daily at bedtime. levothyroxine (SYNTHROID) 100 mcg tablet 100 mcg once daily. metoprolol tartrate, short acting, (LOPRESSOR) 100 mg tablet 100 mg twice daily. oxybutynin (DITROPAN) 5 mg tablet 10 mg twice daily. oxyCODONE-acetaminophen (PERCOCET 10) 10-325 mg tablet 1 tablet every 6 hours as needed. tiZANidine (ZANAFLEX) 4 mg tablet 4 mg four times daily as needed. tizanidine hcl(ZANAFLEX 2 MG CAP) ATENOLOL 25 MG TAB Take one(1) tablet daily. omeprazole(PRILOSEC 10 MG CAP) Take one(1) capsule daily. AMITRIPTYLINE 25 MG TAB Take one(1) tablet at bedtime. REVIEW OF SYSTEMS: GENERAL: No weight loss or malaise MUSCULOSKELETAL: see HPI NEURO: No history of headaches, syncope, paralysis, seizures or tremors Patient Entered Questionnaires Spine Questions 12/17/2022 Pain Location: Lower back Pain Duration: More than 5 years Pain over last 6 months: Every day or nearly every day in the past 6 months Symptoms from neck/cervical spine: No Employment Status: Disabled due to back pain, permanently or temporarily Off work 1 month or more due to back/neck pain: Does not (more content not included)...[facility]03-31-2023 History of Present illness Narrative* Farhat Jordan PA-C - 12/17/2022 11:23 AM EDT Images from the original note were not included. SPINE OUTPATIENT CONSULT This is a virtual visit using Touchstorm video visit. It required patient-provider interaction for themedical decision making as documented below. I have communicated my name and active licensure. The patient's identity and physical location wereverified at the time of this visit. Either the patient or their legal tax representative has been informed of the risks and benefits of -- and alternatives to -- treatment through a remote evaluation andconsents to proceed with the evaluation remotely. SERVICE DATE: 12/17/2022 PCP: Adiel Lux MD REFERRING PROVIDER: Adiel Lux ([facility]) [address] [facility] [id number] Consult requested for an opinion regarding the evaluation and treatment of low back pain. My final impression and recommendations will be communicated back to the requesting physician by way of the shared medical record or letter via US mail. SUBJECTIVE Tabby Jay is a 47 year old female CHIEF COMPLAINT: low back pain, numbness in the hands, declining dexterity and balance HISTORY OF PRESENT ILLNESS PRECIPITATING EVENT: None DURATION OF SYMPTOMS: Greater Than 1 Year Seen virtually for low back pain. Hx of lumbar fusion 5 years ago at [facility]. Did well after surgery but the pain has continued to progress. Low back pain. Occurs constantly, no specific aggravation. No radiation into the legs. Over the last year she's also developed hand numbness She experiences intermittent numbness in the legs as well. Numbness occurs in the night and day, not positional. Denies any hx of DM. At night she's now wearing compression gloves because she'll also experience pain in the hands. No radiating pain. Describes worsening balance and dexterity over the last year as well. She feels like at times she does not have feeling in her legs. She's had several falls because of this. Using a cane for stability. 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 She's also undergoing workup on this. PAIN EVALUATION 12/17/2022 1111 Pain Level: 8 Pain Location: Back-Lower Description: Crushing;Sharp Frequency: Continuous Intervention/Comfort measure: Medication;Relaxation;Cold PREVIOUS CONSERVATIVE TREATMENTS: Narcotics Previous ablations Previous PT locally Works with local PCP for pain management PREVIOUS SPINAL SURGERY: SURGERY #1: Lumbar fusion 5 years ago in [place] ACTIVE PROBLEM LIST Piriformis Syndrome Morbid Obesity (Hcc) Adnexal Mass S/P Miguel (Total Abdominal Hysterectomy) S/P Appendectomy Pseudotumor Cerebri Anxiety and Depression Smoker Migraines Chronic Pain Syndrome Bmi 60.0-69.9, Adult (Hcc) Urinary Incontinence Acute Midline Low Back Pain With Right-Sided Sciatica PAST MEDICAL HISTORY Diagnosis Date Anxiety and depression Chronic pain syndrome Migraines Pseudotumor cerebri S/P appendectomy S/P MIGUEL (total abdominal hysterectomy) Smoker PAST SURGICAL HISTORY Procedure Laterality Date CHOLECYSTECTOMY CHOLECYSTECTOMY TONSILLECTOMY & ADENOIDECTOMY <AGE 13 TOTAL ABDOMINAL HYSTERECT W/WO RMVL TUBE OVARY US ABDOMEN COMPLETE FAMILY HISTORY Problem Relation Age of Onset Heart Father Hypertension Father Diabetes Mother Social History Tobacco Use Smoking status: Every Day Packs/day: 0.50 Years: 9.00 Pack years: 4.50 Types: Cigarettes ALLERGIES Allergen Reactions Aspirin Ciprofloxacin Swelling Solumedrol [Methylp* Shortness of Breath Tape [Adhesive Tape* Other: See Comments Tears skin Off Toradol [Ketorolac * Swelling, Itching MEDICATIONS: ALPRAZolam (XANAX) 0.5 mg tablet 0.5 mg three times daily. FLUoxetine (PROZAC) 20 mg capsule 40 mg daily at bedtime. levothyroxine (SYNTHROID) 100 mcg tablet 100 mcg once daily. metoprolol tartrate, short acting, (LOPRESSOR) 100 mg tablet 100 mg twice daily. oxybutynin (DITROPAN) 5 mg tablet 10 mg twice daily. oxyCODONE-acetaminophen (PERCOCET 10) 10-325 mg tablet 1 tablet every 6 hours as needed. tiZANidine (ZANAFLEX) 4 mg tablet 4 mg four times daily as needed. tizanidine hcl(ZANAFLEX 2 MG CAP) ATENOLOL 25 MG TAB Take one(1) tablet daily. omeprazole(PRILOSEC 10 MG CAP) Take one(1) capsule daily. AMITRIPTYLINE 25 MG TAB Take one(1) tablet at bedtime. REVIEW OF SYSTEMS: GENERAL: No weight loss or malaise MUSCULOSKELETAL: see HPI NEURO: No history of headaches, syncope, paralysis, seizures or tremors Patient Entered Questionnaires Spine Questions 12/17/2022 Pain Location: Lower back Pain Duration: More than 5 years Pain over last 6 months: Every day or nearly every day in the past 6 months Symptoms from neck/cervical spine: No Employment Status: Disabled due to back pain, permanently or temporarily Off work 1 month or more due to back/neck pain: Does not apply Applied for/receive disability/WC due to low back/neck pain No Involved in law suit/legal claim: No Spine Red Flags 12/17/2022 Any type of cancer: No Unexplained fever: No Bowel or bladder disfunction: Yes Unintentional weight loss: No Osteoporosis: No PROMIS Score Percentiles Physical Health 12/17/2022 Physical Function Percentile 1 Sleep Percentile 4 Fatigue Percentile 2 Pain Interference Percentile 0 PROMIS SOCIAL ROLE SCORE 12/17/2022 Social Role Satisfaction Percentile 1 PROMIS Global Health Scale 03/03/2016 12/17/2022 Physical Health Percentile - 0 Mental Health Percentile 26* 2 Percentiles provide an indication of how the patient's score ranks in relation to the general population. Higher percentile rankings indicate better function/quality of life. 50th percentile is the average of the general population and indicates half of respondents had a worse score. Depression Screening: PHQ-9 12/17/2022 Score 18 PHQ-9 Self-harm Question 12/17/2022 Thoughts that you would be better off , or of hurting yourself in some way 1 PHQ-9 Self-Harm (Item 9) response options: 0 Not at all 1 Several days 2 More than half the days 3 Nearly every day PHQ-9 Levels: 0-4 No to mild depression 5-9 Mild depression 10-14 Moderate depression 15-19 Moderately severe depression 20-27 Severe depression OBJECTIVE: PHYSICAL EXAM There were no vitals taken for this visit. Virtual visit Patient is sitting comfortably but describes pain. Using a cane to get around because of unsteadiness. NEURO TESTS: None DATA REVIEW No additional images reviewed today ASSESSMENT/PLAN (M47.12) Cervical spondylosis with myelopathy (primary encounter diagnosis) (M54.50, G89.29) Chronic bilateral low back pain without sciatica (Z98.1) S/P lumbar fusion Hx of low back pain. Fusion in [place] 5 years ago which she feels helped but pain continued to progress. Denies any radiating pain into the legs. Pain is constant. Would need CT and X-Ray to evaluateher fusion. Discussed BMI and that she would not be a candidate for elective surgery until BMI <40. Discussed weight loss options including consult with bariatrics and weight management program. She also describes 1 year hx of progressive numbness and pain in the hands. She describes several falls because of numbness in the legs and feeling like her legs give out. She also feels unsteady with walking and has been dropping things more frequently. Would need cervical imaging to rule out myelopathy. Discussed ref flags with myelopathy. Since this is a virtual visit I was unable to examine the patient for upper motor neuron sings. Sheis undergoing workup with her PCP. I would recommend they complete advanced imaging. Once imaging is completed she can have them sent in for review. If she cannot get imaging locally she would need in person appointment for a full documented exam and evaluation to get additional imaging ordered. 1. Imaging: Cervical MRI Without Contrast rule out myelopathy, Cervical X-Ray and Lumbar X-Ray, andLumbar CT Without Contrast rule out pseudoarthrosis post lumbar fusion The majority of the visit was spent counseling and/or coordinating care for the patient. Total faceto face time was 30 minutes. SIGNATURE: Farhat Jordan PA-C PATIENT NAME: Tabby Jay DATE: December 17, 2022 TIME: 11:23 AM [facility]* Encounter Date Diagnosis Assessment Notes Treatment Notes Treatment Clinical Notes Nov, Anxiety disorder, unspecified (ICD-10 - F41.9) Nov, Depression, unspecified (ICD-10 - F32.A) Nov, Adult ADHD (ICD-10 - F90.9) [facility] Other 03-16-2023 Evaluation note* Encounter Date Diagnosis Assessment Notes Treatment Notes Treatment Clinical Notes Nov, Degenerative lumbar disc (ICD-10 - M51.36) Nov, Tinnitus, unspecified laterality (ICD-10 - H93.19) [facility] Other 03-13-2023 Evaluation note* Encounter Date Diagnosis Assessment Notes Treatment Notes Treatment Clinical Notes Nov, Wellness examination (ICD-10 - Z00.00) general topics regarding health education were discussed in detail. All preventative issues were discussed including remaining a nonsmoker, colorectal screening, the importance of proper sleep for brain health maintenance, maintaining a heart-healthy balanced diet, recognizing and addressing signs of anxiety and depression, maintaining positive relationships with family and friends. Nov, Hypothyroidism (acquired) (ICD-10 - E03.9) chronic problem, will check labs Nov, Screening mammogram for breast cancer (ICD-10 - Z12.31) Nov, OAB (overactive bladder) (ICD-10 - N32.81) samples of myrbetriq given. Nov, Anxiety, generalized (ICD-10 - F41.1) worsened, on xanax. has been on SSRIs in the past. feels better without those meds, but agrees to see psychiatry. Nov, Failed back syndrome (ICD-10 - M53.9) Discussed pain medications, reviewed OARRS report. Will set up with DR. Hercules for a review of her history and further suggestions. Nov, Lumbosacral spondylosis (ICD-10 - M47.817) Nov, Post laminectomy syndrome (ICD-10 - M96.1) Nov, Lumbar radiculopathy (ICD-10 - M54.16) Nov, Aural vertigo, right ear (ICD-10 - H81.311) Pt notes vertigo and had surgery on R ear in the past. [employer] Other 08-25-2022 NoteHNO ID: [id number] Author: RT Alan(R) Service: ? Author Type: Technologist Type: Progress Notes Filed: 05/12/2022 11:38 PM Note Text: Radiology Service Progress Note PATIENT NAME: Tabby Jay DATE OF SERVICE: May 12, 2022 TIME: 11:37 PM PATIENT IDENTITY VERIFICATION COMPLETED USING TWO (2) IDENTIFIERS: Name and Date of confirmed by patient verbally and Name and Date of confirmed by identification band. FALL SCREENING: Has the patient had 2 falls in the last year or 1 fall with injury or currently using an Ambulatory Assistive Device (Walker, Cane, Wheelchair, Crutches, etc.)? Emergency Room Patient: Screened in ED PATIENT GENDER DATA: Female. status: : No status: NO. PATIENT RELEVANT IMPLANT DATA REVIEWED: Not Applicable RADIOLOGY DEPARTMENT: CT; Exam(s) Completed: Abdomen/Pelvis PERIPHERAL IV DATA: Not applicable SIGNED BY: RT Alan(R) May 12, 2022 11:37 [id number] NoteHNO ID: [id number] Author: RT Marvin(R) Service: Radiology Author Type: Medical Technologist Prn Type: Progress Notes Filed: 05/12/2022 10:58 PM Note Text: Radiology Service Progress Note PATIENT NAME: Tabby Jay DATE OF SERVICE: May 12, 2022 TIME: 10:58 PM PATIENT IDENTITY VERIFICATION COMPLETED USING TWO (2) IDENTIFIERS: Name and Date of confirmed by patient verbally. FALL SCREENING: Has the patient had 2 falls in the last year or 1 fall with injury or currently using an Ambulatory Assistive Device (Walker, Cane, Wheelchair, Crutches, etc.)? Emergency Room Patient: Screened in ED PATIENT GENDER DATA: Female. status: : No status: N/A PATIENT RELEVANT IMPLANT DATA REVIEWED: Not Applicable RADIOLOGY DEPARTMENT: Ultrasound PERIPHERAL IV DATA: Not applicable SIGNED BY: RT Marvin(R) May 12, 2022 10:58 [id number] Miscellaneous Notes* Telephone Encounter - Allyson Vieira RN - 05/12/2022 2:42 PM EDT Called patient regarding 06/[address] Cardoso. Patient stated tearfully I'm in so much pain Alyse can't get a CT scan done anywhere because of my weight. I went to [place] yesterday and they couldn't do it so now I'm waiting for my to come home to take me somewhere else Patient describes abdominal pain as sharp and constant 10/10 encompassing entire abdomen with left side most severe.After placing patient on hold, called [facility] to confirm [address] Informed patient and advised to go to [facility] ED for eval. Instructed to call back with update so as to confirm need for OV with Dr. Cardoso. Patient verbalized understanding and appreciation for assistance. Contac t info provided. documented in this encounterGlen[facility] HospitalEvaluation + Plan note No data available for this section [facility] noteNo InformationNortConemaugh [facility] [employer] Other Evaluation note* Diagnosis Cervical spondylosis with myelopathy- Primary Chronic bilateral low back pain without sciatica S/P lumbar fusion Arthrodesis status documented in this encounter [facility] general Narrative - Reported* Type Description Date Medical History Pseudotumor cerebri Medical History Bronchitis Medical History OAB (overactive bladder) Medical History Hypothyroidism (acquired) Medical History Gastroesophageal ref lux disease with esophagitis without hemorrhage Medical History Nausea in adult Medical History Hypoglycemia Medical History Lumbar radiculopathy Medical History Anxiety, generalized Medical History Essential hypertension Surgical History hysterectomy-total 2008 Surgical History cholecystectomy 2006 Surgical History appendectomy age 19 Surgical History BACK SURGERY-CARABALLO(FUSION WITH CAGE 05/2016 Surgical History RIGHT EAR SURGERY 1996 Hospitalization History SEE ABOVE [facility] [employer] Other Progress note No data available for this section [facility] Summary Purpose Family History No Family History Records FoundNo Family History Records FoundNo Family History Records FoundNo Family History Records FoundNo Family History Records FoundNo Family History Records FoundNo Family History Records FoundNo Family History Records Found Advance Directives No Advanced Directives Records FoundNo Advanced Directives Records FoundNo Advanced Directives Records FoundNo Advanced Directives Records FoundNo Advanced Directives Records FoundNo Advanced Directives Records FoundNo Advanced Directives Records FoundNo Advanced Directives Records Found Reason for Referral Reason CLOSED-DUPLICATE S ee phone note. [facility] will not see her. Depression, anxiety, ADD. Thank you Diagnosis 1 Anxiety disorder, un specified (F41.9) Referral Organization [facility] ma[facility] Referring Provider First Name Adiel Referring Provider Last Name Maci Referring Provider Specialty [facility] [employer] Referred Organization [facility] [place] Referred Address [address],[place] ,[place],[address] Referred Provider Specialty Psychiatry Referral Priority Routine General Notes Heide Chua 02:06:27 PM >another referral is already open for [facility] in [place]. Closing this referral out Reason *12/16 Lumbar p ain Diagnosis 1 Degenerative lumbar disc (M51.36) Referral Organization [facility] [employer] mauro Referring Provider First Name Adiel Referring Provider Last Name Maci Referring Provider Specialty [facility] [email or web address] [facility]erred [facility] Referred Address [address] [place],[address] Referred Provider Specialty Neurosurgery Referral Priority Routine General Notes Heide Chua 02:18:24 PM >received today, attachmetns made, notes locked, referral form filled out. referral faxed Reason CLOSED-Duplicate P revious referral. Diagnosis 1 Tinnitus, unspecifie d laterality (H93.19) Referral Organization [facility] [employer] mauro Referring Provider First Name Adiel Referring Provider Last Name Maci Referring Provider Specialty [facility] [email or web address] Referred Organization Unknown Facility Referred Provider Specialty Ear, Nose an d Throat Referral Priority Routine General Notes Heide Chua 02:10:07 PM >[facility] Closing this referral Reason CLOSED Had MRIs in the past and surgery. Will scan in from old charts. Diagnosis 1 Lumbosacral spondylo sis (M47.817) Referral Organization [facility] [employer] Referring Provider First Name Adiel Referring Provider Last Name Maci Referring Provider Specialty [facility] [email or web address] Referred Organization Unknown Facility Referred Provider Adore Hercules Referred Provider Specialty Neurological Surgery Referral Priority Routine General Notes Heide Chua 02:04:19 PM >received today, sent P2P Heide Chua 12/03/2022 12:08:07 PM >referral closed due to pt needed to go to a larger facility for treatment. cannot use anesthesia on BMI that is [address]. Dr. Lux was already informed Reason *12/15 Diagnosis 1 Anxiety, generalized (F41.1) Referral Organization [facility] [employer]uro Referring Provider First Name Adiel Referring Provider Last Name Maci Referring Provider Specialty [facility] [employer] [facility] [place] Referred Address [address],[facility],[place],[address] Referred Provider Specialty Psychiatry Referral Priority Routine General Notes Piyushcarmenjuan Heide 01:21:48 PM >RECEIVED TODAY, RECEIVED FAXED NUMBER, NOTES LOCKED, REFERRAL FAXED Deni Chuaya 12/07/2022 08:41:27 AM >FAXED FIRST ATTEMPT LETTER Heide Chua 12/08/2022 09:51:24 AM >RECEIVED FAX THAT PT WAS DENIED, NEEDS HIGHER LEVEL OF CARE. WILL CALL PATIENT Deni Chuaya 12/08/2022 03:55:46 PM >WILL SEND TO [facility] [place] Harshil Heide 12/08/2022 03:56:16 PM >REFERRAL FAXED Clinical Notes P:[id number] F: [id number] Reason *FU 12/15 CALL R T M abnormal and vertigo Diagnosis 1 Aural vertigo, right ear (H81.311) Referral Organization [facility] Referring Provider First Name Adiel Referring Provider Last Name Maci Referring Provider Specialty [facility] Referred Organization [facility] Referred Provider Lilian Jaimes Referred Address ,[place], [place],[address] Referred Provider Specialty Otolaryngolo gy Referral Priority Routine General Notes Piyushcarmenjuan Heide 02:22:19 PM >RECEIVED TODAY, PiyushcarmenjuanHeide 11/30/2022 02:26:05 PM >NOTES LOCKED, INS CARD TO LARGE OF FILE TO FAX, FAXED P2P Heide Chua 12/07/2022 11:36:11 AM >faxed first attempt letter Heide Chua 12/08/2022 10:20:26 AM >RECEIVED FAX THAT OFFICE IS UNABLE TO SCHEDULE PT, DUE TO PRIOR NO SHOWS. WILL CALL PT Heide Chua 12/08/2022 04:21:08 PM >CALLED AND LEFT MESSAGE FOR PT. WILL FOLLOW UP AGIAN IN ONE WEEK Additional Source Comments INFORMATION SOURCE (unrecogn ized section and content) DATE CREATED AUTHOR 03/24/2019 Annalee Holder DATE CREATED AUTHOR 'S ORGANIZ ATION 06/25/2019 [facility] DATE CREATED AUTHOR AUTHOR'S ORGANIZ ATION 05/14/2022 [facility] DATE CREATED AUTHOR AUTHOR'S ORGANIZ ATION 05/14/2022 [facility] DATE CREATED AUTHOR AUTHOR'S ORGANIZ ATION 05/15/2022 [facility] DATE CREATED AUTHOR AUTHOR'S ORGANIZ ATION 09/17/2022 [facility] DATE CREATED AUTHOR AUTHOR'S ORGANIZ ATION 12/22/2022 [facility] DATE CREATED AUTHOR AUTHOR'S ORGANIZ ATION [facility]/26/2023 [facility] Source Comments (unrecognize d section and content) In the event this informatio n is protected by the Federal Confidentiality of Alcohol and Drug Abuse Patient Records regulations: The Federal rules restrict any use of the information to criminally investigate or prosecute any alcohol or drug abuse patient.[facility]lenbeigh HospitalIn the event this information is protected by the Federal Confidentiality of Alcohol and Drug Abuse Patient Records regulations: The Federal rules restrict any use of the information to criminally investigate or prosecute any alcohol or drug abuse patient.[facility] Reason for Visit (unrecogniz ed section and content) Refill Reason Comments Appointment Reason Comments New Patient Evaluation Care Teams (unrecognized sec tion and content) Capacity Analyst Relationship Specialty Start Date End Date Adiel Lux MD [address] [place] [address] PCP - General Family Practice 12/1/16 Adiel Lux MD [address] [facility] [place] [address] Referring [facility] 02/27/22 Capacity Analyst Relationship Specialty Start Date End Date Adiel Lux MD [address] [place] [facility] [place] [place] [address] PCP - General Family Medicine 08/19/16 Adiel Lux MD [address] [place] [facility] [place] [place] [address] Referring [facility] Medicine 02/27/22 Adiel Lux MD [address] [facility] [place] [address] Referring Family Medicine 12/10/22 FOR RECORDS PERTAINING TO PATIENTS WHO ARE OR HAVE BEEN ENROLLED IN A CHEMICAL DEPENDENCY/SUBSTANCEABUSE PROGRAM, SOME INFORMATION MAY BE OMITTED. This clinical summary was aggregated from multiple sources. Caution should be exercised in using it in the provision of clinical care. This summary normalizes information from multiple sources, and as a consequence, information in this document may materially change the coding, format and clinical context of patient data. In addition, data may be omitted in some cases. CLINICAL DECISIONS SHOULD BE BASED ON THE PRIMARY CLINICAL RECORDS. [facility] [employer] [facility]. provides no warranty or guarantee of the accuracy or completeness of information in this document.
== END 2023-09-20 17:37 | disposition left against medical advice (07) ==
PROVIDERS: Emergency Provider Emergency Medicine; PCP Family Medicine
DX: Z53.21 Procedure and treatment not carried out due to patient leaving prior to being seen by health care provider (principal)
CPT/HCPCS: 99284

== ENCOUNTER 2024-04-04 19:07 | Emergency (ER) | payer OTHER, SELFPAY ==
--- OUTSIDE RECORDS SUMMARY | 2024-04-04 19:17 | XMS_ITS | CCD ---
Author Organization [facility] Care Team Providers Care Traffic Rate Computer Name Role Phone VANE QUINONEZ Referring Unavailable ADIEL LUX Primary Care Unavailable ADIEL LUX Referring Unavailable ADIEL LUX Primary Care Unavailable UNKNOWN, PROVIDER Admitting Unavailable UNKNOWN, PROVIDER Attending Unavailable ADIEL LUX Referring Unavailable ADIEL LUX Primary Care Unavailable Adiel Lux MD Primary Care Provider [phone] Adiel Lux MD Unavailable ADIEL LUX Primary Care Unavailable Unlisted, Physician Attending Unavailable MACI, DR ADIEL Camp Primary Care Unavailable JASMIN, DR STEELE Admitting Unavailable JASMIN, DR STEELE Attending Unavailable PAY, DR BECERRA Consulting Unavailable JASMIN, DR STEELE Consulting Unavailable STRAWSER, DIPESH Consulting Unavailable MACI, DR ADIEL Camp Admitting Unavailable LUX, DR ADIEL Camp Attending Unavailable MACI, DR ADIEL Camp Primary Care Unavailable Adiel Lux Unavailable dAiel Lux MD Primary Care Provider Adiel Lux MD Unavailable Adiel Lux MD Unavailable [phone] FARHAT JORDAN Attending Unavailable ADIEL LUX Referring Unavailable ADIEL LUX Primary Care Unavailable Jeyson Alcantar Unavailable ADIEL LUX Primary Care Physician Gabriel Fournier Attending Unavailable Nicole Carlton Attending Unavailable JENNIFER RAJAN Attending Unavailable ADIEL LUX Referring Unavailable ADIEL LUX Primary Care Unavailable Allergies Allergy Classification Reported Allergen(s) Allergy Type Date of Onset Reaction(s) Facility (20 sources) Ciprofloxacin; Translations: [CIPROFLOXACIN] Drug Allergy 014 Unknown, Rash [facility] Repository (1 source) FLUoxetine Drug Allergy 018 [facility] (2 sources) gabapentin Drug Allergy 018 Nausea [facility] (20 sources) Ketorolac; Translations: [Toradol] Drug Allergy 010 rash [facility] (3 sources) methylPREDNISolone Drug Allergy Hives [facility] (20 sources) Prochlorperazine; Translations: [Compazine] Drug Allergy 013 rash [facility] (3 sources) PAPER TAPE; Translations: [paper tape] Drug allergy (disorder) skin irriation [facility] (3 sources) Adhesive Tape; Translations: [ADHESIVE TAPE (ROSINS)] Allergy to substance Other: See Comments [facility] (20 sources) Aspirin; Translations: [ASPIRIN] Drug Allergy migraines, Migraine, migraines [facility] (20 sources) Ciprofloxacin; Translations: [ciprofloxacin] Drug Allergy Swelling [facility] (3 sources) Ketorolac; Translations: [KETOROLAC TROMETHAMINE] Drug Allergy Swelling, Itching [facility] (4 sources) methylPREDNISolone; Translations: [METHYLPREDNISOLONE SODIUM SUCC] Drug Allergy Shortness of Breath [facility] (2 sources) Ciprofloxacin; Translations: [Cipro] Drug Allergy [facility] Rep[facility] (3 sources) methylPREDNISolone; Translations: [Solu-MEDROL] Drug Allergy [facility] Rep[facility] (1 source) venlafaxine Drug Allergy [facility] (20 sources) FLUoxetine; Translations: [FLUOXETINE] Drug Allergy 018 Unknown, Unknown Reaction [facility] (20 sources) gabapentin Drug Allergy 017 NAUSEA [email or web address] Other (20 sources) meloxicam Drug Allergy 018 Unknown, [facility] (20 sources) methylPREDNISolone; Translations: [methylprednisolone] Drug Allergy 014 Unknown, [facility] (20 sources) topiramate Drug Allergy 018 Unknown, [facility] (20 sources) varenicline Drug Allergy 015 Unknown, [facility] (20 sources) venlafaxine Drug Allergy 019 Unknown, [facility] (20 sources) Toradol *ANALGESICS - ANTI-INFLAMMATORY* Propensity to adverse reactions 014 Unknown [email or web address] Other (11 sources) Allergies Reconciled Propensity to adverse reactions 021 Unknown [email or web address] Other (20 sources) Compazine *ANTIPSYCHOTICS/ANTIM ANIC AGENTS* Propensity to adverse reactions Unknown [facility] [employer] Other (11 sources) patient allergy list reviewed by nurse or physicia Propensity to adverse reactions 017 Comment:Done [email or web address] Other (4 sources) Ketorolac; Translations: [ketorolac] Drug Allergy [facility] (4 sources) Prochlorperazine; Translations: [prochlorperazine] Drug Allergy [facility] (2 sources) Silk adhesive tape; Translations: [silk tape] Drug allergy skin irriation [facility] (2 sources) Toradol *ANALGESICS - ANTI-INF Allergy to substance [facility] Medications Current Medications Medication Drug Class(es) Dates Sig (Normalized) Sig (Original) ALPRAZolam 0.5 mg oral tablet (20 sources) Benzodiazepine Start: 12-07-2023 take 0.5 mg by mouth three times daily Alprazolam Active 0.5 MG PO Three times daily 40 December 07, 2023 8:23am Start: 10-27-2023 take 1 tablet by eyad th three times daily ALPRAZolam 0.5 MG take 1 tablet by mouth three times a day if needed for Oct, Active Start: 10-03-2023 take 1 tablet by eyad th three times daily ALPRAZolam 0.5 MG take 1 tablet by mouth three times a day if needed for 14 Sep, Active Start: 09-21-2023 take 1 tablet by eyad th three times daily ALPRAZolam 0.5 MG take 1 tablet by mouth three times a day if needed for 14 Sep, Active Start: 06-30-2023 take 1 tablet by eyad th three times daily ALPRAZolam 0.5 MG take 1 tablet by mouth three times a day if needed for 14 Aug, Active Start: 06-02-2023 take 1 tablet by eyad th three times daily ALPRAZolam 0.5 MG take 1 tablet by mouth three times a day if needed for 14 May, Active Start: 02-15-2019 End: 12-07-2023 take 1 tablet by mouth once daily Alprazolam (Xanax) 0.5 mg Tablet Discontinued 0.5 MG PO Daily February 15, 2019 12:00am December 07, 2023 8:25am Start: 01-28-2016 take 1 tablet by eyad th three times daily ALPRAZolam 0.5 MG take tablet by mouth three times a day if needed for 14 Apr, Active Comment on above: 0.5 mg three times d aily. Amitriptyline (20 sources) Tricyclic Antidepressant Start: 11-15-19 take 1 tablet by mouth at bedtime Amitriptyline Active 0 .ROUTE .COMPLEX November 15, 2023 3:12pm take 1 tablet by mouth at bedtime Start: 02-15-2019 End: 11-15-2023 take 10 mg by mouth once daily at bedtime Amitriptyline Discontinued 10 MG PO Daily at bedtime February 15, 2019 12:00am November 15, 2023 3:13pm Start: 12-09-2009 AMITRIPTYLINE 25 MG TAB Take one(1) tablet at bedtime. 30 2 12/09/2009 Active take 1 tablet by eyad th at bedtime Amitriptyline HCl 50 MG take 1 tablet by mouth at bedtime for 30 Active Comment on above: Take one(1) tablet a t bedtime. 24 hr amphetamine aspartate 3.75 mg / amphetamine sulfate 3.75 mg / dextroamphetamine saccharate 3.75 mg / dextroamphetamine sulfate 3.75 mg extended release oral capsule (20 sources) Central Nervous System Stimulant Start: 11-16-2023 End: 12-19-2023 take 15 mg by mouth once daily Dextroamphetami ne-Amphetamine Active 15 MG PO Daily December 19, 2023 Start: 10-20-2023 take 1 capsule by mo uth once daily Amphetamine-Dextroamphet ER 15 MG take 1 capsule by mouth once daily for 30 DAYS for 30 Oct, Active Start: 09-05-2023 take 1 capsule by mo uth once daily Amphetamine-Dextroamphet ER 15 MG take 1 capsule by mouth once daily for 30 DAYS for 30 Aug, Active Start: 07-05-2023 take 1 capsule by mo uth once daily Amphetamine-Dextroamphet ER 15 MG take 1 capsule by mouth once daily for 30 DAYS for 30 Jun, Active Start: 06-07-2023 take 1 capsule by mo uth once daily Amphetamine-Dextroamphet ER 15 MG take 1 capsule by mouth once daily for 30 DAYS for 30 May, Active Start: 05-07-2023 take 1 capsule by mo uth once daily Amphetamine-Dextroamphet ER 15 MG take 1 capsule by mouth once daily for 30 DAYS for 30 Apr, Active Start: 03-29-2023 take 1 capsule by mo uth once [...] tablet (20 sources) Angiotensin Converting Enzyme Inhibitor Start: 02-15-2019 take 10 mg by mouth once daily Benazepril Active 10 MG PO Daily February 15, 2019 12:00am take 1 tablet by eyad th every twenty-four hours Benazepril HCl 20 MG 1 tablet Orally Onc e a day for 90 days Active benzapril (1 source) Start: 08-31-2016 take 10 mg by mouth once daily benzapril benzapril, 10 mg, Oral, Daily Start Date: 08/31/16 Status: Ordered brexpiprazole 0.5 mg oral tablet (20 sources) Atypical Antipsychotic Start: 02-22-2023 take 1 tablet by mouth every twenty-four hours Rexulti 0.5 MG 1 tablet Orally Once a day for 30 days Feb, Active buPROPion hydrochloride 75 mg oral tablet (1 source) Aminoketone Start: 08-17-2016 take 1 tablet by mouth twice daily Wellbutrin 75 mg Tab 75 mg = 1 tab(s), Oral, BID, Refills(s) 0, Depression Start Date: 08/17/16 Status: Ordered citalopram 20 mg oral tablet (16 sources) Serotonin Reuptake Inhibitor Start: 12-19-2023 take 20 mg by mouth once daily Citalopram Active 20 MG PO Daily December 19, 2023 12:00am Start: 08-02-2023 take 1 tablet by eyad th every twenty-four hours Citalopram Hydrobromide 20 MG 1 tablet Orally Once a day for 30 day(s) Jul, Active diazePAM 2 mg oral tablet (1 source) Benzodiazepine Start: 08-17-2016 take 1 tablet by mouth every four hours as needed for anxiety Valium 2 mg Tab 2 mg = 1 tab(s), Oral, q4hr, PRN as needed for anxiety, Refills(s) 0 Start Date: 08/17/16 Status: Ordered dicyclomine hydrochloride 10 mg oral capsule (1 source) Anticholinergic Start: 05-02-2023 End: 05-12-2023 take 1 capsule by mouth four times daily Bentyl 10 mg Cap 10 mg = 1 cap(s), Oral, QID, X 10 day(s), # 40 cap(s), Refills(s) 0, [id number], 175, cm, 05/02/23 17:29:00 EDT, Height/Length Dosing, 210, kg, 05/02/23 17:29:00 EDT, Weight Dosing Start Date: 05/02/23 Stop Date: 05/12/23 Status: Ordered gabapentin 300 mg oral capsule (20 sources) Anti-epileptic Agent Start: 01-16-2024 take 300 mg by mouth twice daily Gabapentin Active 300 MG PO Twice daily January 16, 2024 2:39pm Start: 12-19-2023 End: 01-16-2024 take 300 mg by mouth once daily at bedtime Gabapentin Discontinued 300 MG PO Daily at bedtime December 19, 2023 12:00am January 16, 2024 2:40pm take 1 capsule by mo [facility] at bedtime Gabapentin 300 MG take 1 capsule by mouth at bedtime for 30 Active levothyroxine sodium 0.1 mg oral tablet (20 sources) l-Thyroxine Start: 03-02-2016 take 1 tablet by mouth once daily Synthroid 1 tablet, Oral, Daily, Refills(s) 0, Thyroid Start Date: 03/02/16 Status: Ordered Start: 02-16-2016 take 1 tablet by eyad once daily Levothyroxine (Synthroid) 100 mcg Tablet Active 100 MCG PO Daily February 15, 2019 12:00am on an empty stomach take 1 tablet by eyad once daily in the morning Levothyroxine Sodium 125 MCG 1 tablet in the morning on an empty stomach Orally Once a day for 90 days Active take 1 tablet by eyad once daily in the morning Levothyroxine Sodium 125 MCG 1 tablet in the morning on an empty stomach Orally Once a day for 90 days Active take 1 tablet by eyad once daily in the morning Levothyroxine Sodium 100 MCG 1 tablet in the morning on an empty stomach Orally Once a day for 90 days Active Comment on above: 100 mcg once daily. metoprolol tartrate 100 mg oral tablet (20 sources) beta-Adrenergic Ye Start: 01-09-2024 take 1 tablet by mouth twice daily Metoprolol Tartrate Active 0 .ROUTE .COMPLEX January 09, 2024 12:58pm take 1 tablet by mouth twice a day Start: 12-19-2023 End: 01-09-2024 take 100 mg by mouth twice daily Metoprolol Tartrate Discontinued 100 MG PO Twice daily December 19, 2023 12:00am January 09, 2024 12:58pm Start: 11-04-2023 End: 12-19-2023 take 75 mg by mouth twice daily Metoprolol Tartrate Discontinued 75 MG PO Twice daily 135 90 November 04, 2023 11:04am December 19, 2023 2:37pm Start: 02-15-2019 End: 11-04-2023 take 50 mg by mouth twice daily Metoprolol Tartrate Discontinued 50 MG PO Twice daily February 15, 2019 12:00am November 04, 2023 11:06am Start: 01-26-2016 metoprolol tar trate, short acting, (LOPRESSOR) 100 mg tablet 100 mg twice daily. 0 01/26/2016 Active Comment on above: 100 mg twice daily. 24 hr mirabegron 50 mg extended release oral tablet (20 sources) beta3-Adrenergic Agonist Start: 12-07-2023 take 1 tablet by mouth once daily Mirabegron (Myrbetriq) 50 mg tablet extended release 24 hr Active 0 .ROUTE .COMPLEX December 07, 2023 8:23am take 1 tablet by mouth once daily Start: 12-06-2023 End: 12-07-2023 take 1 tablet by mouth once daily Mirabegron (Myrbetriq) 50 mg tablet extended release 24 hr Discontinued 50 MG PO Daily December 06, 2023 12:00am December 07, 2023 8:25am Start: 02-22-2023 take 1 tablet by eyad every twenty-four hours Myrbetriq 50 MG 1 tablet Orally Once a day for 30 days Feb, Active omeprazole 40 mg delayed release oral capsule (20 sources) Proton Pump Inhibitor Start: 12-19-2023 take 40 mg by mouth once daily Omeprazole Active 40 MG PO Daily December 19, 2023 12:00am Start: 02-15-2019 End: 12-16-2023 Omeprazole Magnesium (Prilos ec Otc) 20 mg Tablet,Delayed Release (Dr/Ec) Discontinued 40 MG PO Daily February 15, 2019 12:00am December 16, 2023 9:17am Start: 03-02-2016 take 1 capsule by mo [facility] once daily at bedtime Prilosec 40 mg [...] Refills(s) 0 Start Date: 08/31/16 Status: Ordered oxyCODONE hydrochloride 10 mg oral tablet (20 sources) Opioid Agonist Start: End: take 10 mg by mouth three times daily Oxycodone Active 10 MG PO Three times daily 21 January 12, 2024 Start: 11-16-2023 End: 12-19-2023 take 20 mg by mouth every four hours Oxycodone Discontinued 20 MG PO Q4H 160 November 16, 2023 December 19, 2023 2:42pm Start: 10-20-2023 oxyCODONE HCl 20 MG take 1 tablet by mouth every 4 hours if needed *MUST LAST 30 DAYS for 30 Oct, Active Start: 09-23-2023 oxyCODONE HCl 20 MG take 1 tablet by mouth every 4 hours if needed *MUST LAST 30 DAYS for 30 Sep, Active Start: 09-21-2023 oxyCODONE HCl 20 MG take 1 tablet by mouth every 4 hours if needed *MUST LAST 30 DAYS for 30 Sep, Active Start: 08-26-2023 oxyCODONE HCl 20 MG [...] 30 DAYS for 30 Aug, Active Start: 08-17-2016 End: 11-16-2023 oxyCODONE HCl 20 MG take 1 t ablet by mouth every 4 hours if needed *MUST LAST 30 DAYS for 30 Jul, Active promethazine hydrochloride 25 mg oral tablet [...] (20 sources) Central alpha-2 Adrenergic Agonist Start: 01-16-2024 take 4 mg by mouth once Tizanidine Active 4 MG PO Once January 16, 2024 12:00am Start: 02-15-2019 End: 01-16-2024 take 4 mg by mouth three times daily Tizanidine Discontinued 4 MG PO Three times daily February 15, 2019 12:00am January 16, 2024 12:22pm Start: 03-02-2016 take 2 tablets by mo [facility] twice daily Zanaflex 4 mg Tab 8 [...] Nausea/Vomiting, # 12 tab(s), Refills(s) 0, [facility]: [facility] #[id number], 175, cm, 05/02/23 17:29:00 EDT, Height/Length Dosing, 210, kg, 05/02/23 17:29:00 EDT, Weight Dosing Start Date: 05/02/23 Status: Ordered Completed/Discontinued Medications Medication Drug Class(es) Dates Sig (Normalized) Sig (Original) acetaminophen 325 mg / oxyCODONE hydrochloride 7.5 mg oral tablet (20 sources) Opioid Agonist Start: 11-28-2023 End: 12-19-2023 take 1 tablet by mouth three times daily Oxycodone-Acetamino phen Discontinued 1 TAB PO Three times daily November 29, 2023 December 19, 2023 2:37pm Start: 11-01-2023 take 1 tablet by eyad th three times daily as needed oxyCODONE-Acetaminophen 7.5-325 MG 1 tablet as needed Orally tid prn for 30 days Oct, Active Start: 11-01-2023 take 1 tablet by eyad th three times daily as needed oxyCODONE-Acetaminophen 7.5-325 MG 1 tablet as needed Orally tid prn for 30 days Oct, Active Start: 10-03-2023 take 1 tablet by eyad th three times daily as needed oxyCODONE-Acetaminophen 7.5-325 MG 1 tablet as needed Orally tid prn for 30 days Sep, Active Start: 09-23-2023 take 1 tablet by yead th three times daily as needed oxyCODONE-Acetaminophen 7.5-325 MG 1 tablet as needed Orally tid prn for 30 days Sep, Active Start: 09-05-2023 take 1 tablet by eyad th three [...] days Due around Nov, Active Start: 02-10-2016 End: 12-16-2023 take 1 tablet by mouth every six hours Oxycodone-Acetaminophen Discontinued 1 T AB PO Q6H February 15, 2019 12:00am December 16, 2023 9:18am Comment on above: 1 tablet every 6 dionna rs as needed. Aspir-81 81 MG (20 sources) take 1 tablet by mouth once daily as needed Aspir-81 81 MG 1 tablet Orally Once a day Not-Taking/PRN take 1 tablet by mouth once юлия y Aspir-81 81 MG 1 tablet Orally Once a day Not-Taking aspirin 81 mg delayed release oral tablet (2 sources) Platelet Aggregation Inhibitor, Nonsteroidal Anti-inflammatory Drug Start: 02-15-2019 End: 12-16-2023 take 1 tablet by mouth once daily Aspirin (Aspirin Low Dose) 81 mg Tablet,Delayed Release (Dr/Ec) Discontinued 81 MG PO Daily February 15, 2019 12:00am December 16, 2023 9:16am atenolol 25 mg oral tablet (2 sources) beta-Adrenergic Ye Start: 12-09-2009 ATENOLOL 25 MG TAB Take one(1) tablet daily. 0 12/09/2009 Active Comment on above: Take one(1) tablet daily. FLUoxetine 20 mg oral capsule (2 sources) Serotonin Reuptake Inhibitor Start: 02-16-2016 FLUoxetine (PROZAC) 20 mg capsule 40 mg daily at bedtime. 0 02/16/2016 Active Comment on above: 40 mg daily at bedtime. meloxicam 15 mg oral tablet (2 sources) Nonsteroidal Anti-inflammatory Drug Start: 02-15-2019 End: 12-16-2023 take 15 mg by mouth once daily Meloxicam Discontinued 15 MG PO Daily February 15, 2019 12:00am December 16, 2023 9:17am 24 hr oxybutynin chloride 10 mg extended release oral tablet (20 sources) Cholinergic Muscarinic Antagonist Start: 12-16-2023 End: 12-19-2023 take 20 mg by mouth three times daily Oxybutynin Chloride Discontinued 20 MG PO Three times daily December 16, 2023 9:18am December 19, 2023 2:06pm Start: 02-15-2019 End: 12-16-2023 take 20 mg by mouth every four hours Oxybutynin Chloride Discontinued 20 MG PO Q4H February 15, 2019 12:00am December 16, 2023 9:18am Start: 03-02-2016 take 1 tablet by eyad th three times daily oxybutynin 10 mg ER Tab 10 mg = 1 tab(s), Oral, TID, Refills(s) 0 Start Date: 03/02/16 Status: Ordered Start: 02-17-2016 oxybutynin (DI TROPAN) 5 mg tablet 10 mg twice daily. 0 02/17/2016 Active take 1 tablet by eyad th twice daily Oxybutynin Chloride 10 mg 1 tablet Orally Twice a day Active Comment on above: 10 mg twice daily. Problems Active Problems Problem [...] ; Translations: [Attention-deficit hyperactivity disorder, unspecified type] 11-16-2023 Chronic Attention-deficit, conduct, and disruptive behavior disorders (3 sources) Attention-deficit hyperactivity disorder, unspecified type; Translations: [Attention deficit disorder with hyperactivity] Chronic Calculus of urinary tract (1 source) [...] Aural vertigo, right ear Episodic Esophageal disorders (20 sources) Gastro-esophageal reflux disease without esophagitis; Translations: [Gastro-esophageal reflux disease with esophagitis] Onset: 09-17-2022 12-16-2023 Chronic Esophageal disorders (20 sources) Esophageal disorders; Translations: [Gastroesophageal reflux disease with esophagitis without hemorrhage] Essential hypertension (20 sources) Essential (primary) hypertension; Translations: [Essential hypertension] Onset: 01-09-2014 12-30-2015 Chronic Gastrointestinal hemorrhage (20 sources) Rectal hemorrhage; Translations: [Hemorrhage of anus and rectum] Onset: 05-10-2016 12-16-2023 Episodic Genitourinary symptoms and ill-defined conditions (20 [...] 09-17-2022 Chronic Other aftercare (1 source) Other skilled nursing (current) drug therapy; Translations: [OTH [facility] CURRENT DRUG THERAPY] Onset: 09-17-2022 Episodic Other [...] disorders (20 sources) Hypoglycemia; Translations: [Hypoglycemia, unspecified] 12-16-2023 Chronic Other gastrointestinal disorders (1 source) Splenomegaly, [...] sources) Chronic pain; Translations: [Other chronic pain] 12-16-2023 Chronic Other nervous system disorders (11 sources) [...] mass index (BMI) 60.0-69.9, adult] Chronic Other nutritional; endocrine; and metabolic disorders (2 sources) Excessive thirst; Translations: [Polydipsia] 12-19-2023 Episodic Other nutritional; endocrine; and metabolic disorders (2 sources) Polydipsia; Translations: [Polydipsia] 12-19-2023 Episodic Other skin disorders (11 sources) Localized swelling, [...] unspecified; Translations: [Hypothyroidism] Onset: 09-17-2022 Chronic Unclassified (20 sources) Acute candidiasis of vulva and vagina; [...] Facility ED Note-Physicianon 06-24-20 23 ED Note-Physician [id number] #1.00TIFF [facility] Insurance Correspondenceon 1 Insurance Correspondence [id number] #1.00TIFF [facility] Lab Reportson 06-24-2023 Lab Reports [id number] #1.00TIFF [facility] Lab Reports [id number] #1.00TIFF [facility] RAD - CT Reporton 06-24-20[address] RAD - CT Report [id number] #1.00TIFF [facility] RAD - CT Report [id number] #1.00TIFF [facility] Gastroenterology Office/Clin ic Noteon 06-23-2023 Gastroenterology Office/Clinic Note Chief Complaint ER Follow up left side abdominal pain. HPI Staff Patient is a 47 year old female new patient who presents today for a f/u from [facility] ER 05/02/23 for left flank pain and hx of liver/spleen lesions on CT scan. States she saw Dr. La from [place] before for GI issues and was supposed [...] Patient had CT during ED visit at [facility] 05/02/2023 that showed lesions on spleen and liver, hepatomegaly, splenomegaly. Note from ED indicated no UTI. Patient was treated in ED with Bentyl, morphine, Zofran, and IVFs and discharged home. Review of outside record from [facility] indicated patient was seen in ED 06/21/2023 for left upper abdomen pain and had CT completed. Patient was provided with prescription for Carafate and Bentyl and advised to take pantoprazole twice daily and her Prilosec was discontinued. Patient also had previous CT A/P at [facility] 06/21/23 that revealed enlarged liver and spleen, posterior right lobe of liver with hypodense area of decreased attenuation, measuring [id number]- stable from 2019- likely cystic lesion and/or hemangioma. Labs completed during ED visit at [facility] 04/2023 revealed normal H&H, low MCV and MCH, elevated RDW, normal BUN, normal creatinine, normal liver enzymes. Labs completed at [facility] 06/21/23 revealed slightly elevated WBC of 11.4, normal H&H, low MCH, elevated RDW, elevated BUN of 19, normal creatinine, normal lipase level, unremarkable LFTs. Patient was discharged home from [facility] 06/21/23 with diagnosis of gastritis. Review of documents indicated patient had previous CT abdomen/pelvis 12/2015 that revealed no evidence of nephrolithiasis or hydronephrosis, small fat-containing ventral supraumbilical hernia. Previous CT abdomen/pelvis 12/13/2015 revealed liver and spleen lesions that were probably benign. Previous outside MRI of abdomen 03/2019 at [facility] revealed no evidence of cirrhosis, 4.8x4.0x3.8cm T2 hyperintense, low T1 and subtle peripheral discontinuous nodular enhancing mass consistent hemangioma, no suspicious liver lesion. Previous CT A/P at [facility] indicated no acute pathology. CT A/P 04/2022 at [facility] revealed no acute abnormality. PMH of Hypothyroidism. [...] otherwise non-tende (more content not included)... Normal [facility] Comment on above: Result Comment: Elec tronically Signed By: Bianka APPIAH, Nicole Jones\.br\Date and Time Signed: 06/23/23 16:56 EDT Reminderson 06-23-2023 Reminders - From: Micaela Liang To: [facility] - Reminders/Recalls; Sent: 06/23/2023 16:12:41 EDT Show up: 07/24/2023 16:12:00 EST Subject: Ambulatory Reminder Reminder/Recall Pt need to sched a colon and egd with Dr. Salgado. She has [place] [employer]. Normal [facility] ED Note-Physicianon 05-03-20 ED Note-Physician Basic Information Time Seen: Tera Lopez PA-C. 05/02/2023 18:32 Chief Complaint L flank pain [...] and Complexity of Problems Differential Diagnosis: [] [facility] Data External documents reviewed: [] My [...] day(s), # 40 cap(s), Refills(s) 0, Pharmacy: [id number], 175, cm, 05/02/23 17:29:00 EDT, Height/Length Dosing, [...] Nausea/Vomiting, # 12 tab(s), Refills(s) 0, Pharmacy: [facility] #[id number], 175, cm, 05/02/23 17:29:00 EDT, Height/Length Dosing, 210, kg, 05/02/23 17:29:00 EDT, Weight Dosing Sodium Chloride 0.9% intravenous solution, 1,000 mL, Soln-IV, IV, Once, Stop date 05/02/23 19:55:00 EDT, STAT, Start date 05/02/23 19:55:00 EDT, Infuse over 61, minute(s) CT A (more content not included)... Normal [facility] Comment on above: Result Comment: Elec tronically Signed By: Tera oLpez PA-C\.br\Date and Time Signed: 05/02/23 22:11 EDT\.br\Electronically Co-Signed By: Gabriel Fournier DO\.br\Date and Time Co-Signed: 05/03/23 07:11 EDT Auto Diffon 05-02-2023 Basophils/100 WBC (Bld) 0.7 % Normal 0.0-2.0 [facility] Comment on above: Order Comment: Order Added by Discern Expert. Performed By: #### 2 645722, 8396475, 52709185, 9142825, 8891140, 0079963, 41272694 ####[facility] [address] [place] [address] Basophils/Leukocytes Auto (Bld) [Pure # fraction] 0.1 E9/L Normal 0.0-0.2 [facility] Comment on above: Order Comment: Order Added by Discern Expert. Performed By: #### 2 969951, 8660933, 96015888, 0214248, 9479227, 1835361, 27321340 ####[facility] [address] [place] [address] Eosinophils/100 WBC (Bld) 1.0 % Normal 0.0-8.0 [facility] Comment on above: Order Comment: Order Added by Discern Expert. Performed By: #### 2 289238, 9967219, 50951965, 0247636, 2426672, 5202588, 46437595 ####[facility] [address] [place] [address] Eosinophils/Leukocytes Auto (Bld) [Pure # fraction] 0.1 E9/L Normal 0.0-0.5 [facility] Comment on above: Order Comment: Order Added by Discern Expert. Performed By: #### 2 647047, 6557977, 16411611, 2101944, 9320496, 3741908, 71569609 ####[address] [place] [address] Lymphocytes/100 WBC (Bld) 31.2 % Normal 14.0-50.0 [facility] Comment on above: Order Comment: Order Added by Discern Expert. Performed By: #### 2 956924, 7924392, 51077831, 4281285, 2366563, 0179594, 32514085 ####[address] [address] Lymphocytes/Leukocytes Auto (Bld) [Pure # fraction] 3.2 E9/L Normal 1.0-4.0 [facility] Comment on above: Order Comment: Order Added by Discern Expert. Performed By: #### 2 818411, 5201495, 27032178, 3859913, 5970507, 2493363, 20008664 ####[address] [address] Monocytes/100 WBC (Bld) 5.6 % Normal 4.0-14.0 [facility] Comment on above: Order Comment: Order Added by Discern Expert. Performed By: #### 2 747771, 3531894, 59097984, 4721414, 3251623, 6501742, 02565211 ####[address] [address] Monocytes/Leukocytes Auto (Bld) [Pure # fraction] 0.6 E9/L Normal 0.2-1.0 [facility] Comment on above: Order Comment: Order Added by Discern Expert. Performed By: #### 2 646990, 9349496, 78514468, 4676612, 7053424, 0780726, 23711171 ####[facility] [address] [place] [address] Neutrophils/100 WBC (Bld) 61.5 % Normal 36.0-75.0 [facility] Comment on above: Order Comment: Order Added by Discern Expert. Performed By: #### 2 833674, 6332964, 84349830, 2565560, 5856522, 1415608, 64762554 ####[facility] [address] [place] [address] Neutrophils/Leukocytes Auto (Bld) [Pure # fraction] 6.3 E9/L Normal 2.0-7.5 [facility] Comment on above: Order Comment: Order Added by Discern Expert. Performed By: #### 2 749545, 0740416, 63112062, 3274784, 4600076, 7206756, 47545814 ####[facility] [address] [place] [address] [facility] 05-02-2023 Creatinine [Mass/Vol] 0.6 mg/dL Normal 0.5-1.3 [facility] Comment on above: Performed By: #### 2 746108, 7982530, 21946869, 6047202, 2173461, 8971207, 59195669 ####[facility] [address] [place] [address] Urea nitrogen [Mass/Vol] 21 mg/dL Normal 5-21 [facility] Comment on above: Performed By: #### 2 600837, 8490454, 92105165, 7255601, 2123055, 5088949, 18433043 ####[facility] [address] [place] [address] Urea nitrogen/Creatinine [Mass ratio] 35 No Units High 10-20 [facility] Comment on above: Performed By: #### 2 248981, 3456505, 10025956, 3775384, 7915631, 2421565, 92299203 ####[facility] [address] [place] [address] Anion gap [Moles/Vol] 14 mmol/L Normal 6-16 [facility] Comment on above: Performed By: #### 2 118839, 6263528, 91011324, 7460846, 2261791, 7108227, 26126166 ####[facility] [address] [place] [address] Calcium [Mass/Vol] 8.7 mg/dL Low 8.9-11.1 [facility] Comment on above: Performed By: #### 2 108164, 3095157, 13412029, 5471045, 8606637, 1460713, 84014000 ####[facility] [address] [place] [address] Chloride [Moles/Vol] 104 mmol/L Normal 101-111 [facility] Comment on above: Performed By: #### 2 966987, 2144738, 75290605, 5628842, 5244689, 3221417, 53215961 ####[facility] [address] [place] [address] CO2 [Moles/Vol] 24 mmol/L Normal 21-31 [facility] Comment on above: Performed By: #### 2 746035, 9927962, 73098663, 9318556, 2455649, 5486977, 32641660 ####[facility] [address] [place] [address] Glucose [Mass/Vol] 100 mg/dL Normal 55-199 [facility] Comment on above: Result Comment: If t his glucose result represents a fasting glucose, interpretation should refer to the following reference range: 55-99 mg/dL Performed By: #### 2 987767, 7723193, 57884635, 3450683, 3832199, 5612228, 83670330 ####[facility] [address] [place] [address] Potassium [Moles/Vol] 4.1 mmol/L Normal 3.5-5.3 [facility] Comment on above: Performed By: #### 2 224593, 8494501, 85533675, 2050280, 0925654, 7663735, 75535203 ####[facility] [address] [place] [address] Sodium [Moles/Vol] 138 mmol/L Normal 135-145 [facility] Comment on above: Performed By: #### 2 619141, 7833994, 50597749, 0541008, 6462098, 0061299, 95640065 ####[facility] [address] [place] [address] CBC w/ Auto Diffon Erythrocyte distribution width (RBC) [Ratio] 15.8 % High 10.9-14.2 [facility] Comment on above: Performed By: #### 2 092985, 7151840, 76042867, 4640282, 8786907, 1987532, 75762326 ####[address] [address] Hematocrit (Bld) [Volume fraction] 41.1 % Normal 34.0-46.0 [facility] Comment on above: Performed By: #### 2 804905, 3447621, 08009498, 7640844, 9167969, 8464786, 84136018 ####[address] [place] [address] Hemoglobin (Bld) [Mass/Vol] 13.6 g/dL Normal 12.0-16.0 [facility] Comment on above: Performed By: #### 2 863539, 2339034, 71353120, 0150161, 0602517, 1481946, 20336932 ####[address] [place] [address] MCH (RBC) [Entitic mass] 25.5 pg Low 27.0-34.0 [facility] Comment on above: Performed By: #### 2 861712, 9108423, 39213188, 2695805, 7860368, 1336598, 92990594 ####[address] [place] [address] MCHC (RBC) [Mass/Vol] 33.1 g/dL Normal 31.4-36.0 [facility] Comment on above: Performed By: #### 2 638748, 8080207, 52596920, 7119587, 6831400, 5799372, 37597709 ####[facility] [address] [place] [address] MCV (RBC) [Entitic vol] 77.0 fL Low 80.0-100.0 [facility] Comment on above: Performed By: #### 2 179227, 2011898, 37343578, 8774275, 8780969, 9332171, 93278455 ####[address] [address] Platelet mean volume (Bld) [Entitic vol] 6.6 fL Normal 6.4-10.8 [facility] Comment on above: Performed By: #### 2 212710, 6343858, 40456454, 6140518, 4293702, 0229064, 19071703 ####[facility] [address] [place] [address] Platelets (Bld) [#/Vol] 257.0 E9/L Normal 150.0-500.0 [facility] Comment on above: Performed By: #### 2 943825, 2339871, 74045685, 7344185, 1598565, 6453727, 27619598 ####[facility] [address] [place] [address] RBC (Bld) [#/Vol] 5.3 E12/L Normal 4.3-5.9 [facility] Comment on above: Performed By: #### 2 667011, 5102303, 87157826, 0085049, 8155562, 0648896, 97788165 ####[facility] [address] [place] [address] WBC corrected for nucl RBC Auto (Bld) [#/Vol] 10.3 E9/L Normal 4.0-11.0 [facility] Comment on above: Performed By: #### 2 013776, 3477478, 44624179, 3865509, 2519609, 3410801, 32588949 ####[facility] [address] [place] [address] CHEMISTRYOrdered By: SYSTEM SYSTEM on 05-02-2023 Albumin [...] 100 mg/dL Normal 55 - 199 mg/dL [facility] Lipase [Catalytic activity/Vol] 24 U/L Normal 13 - 58 unit/L [facility] Potassium [Moles/Vol] 4.1 mmol/L Normal 3.5 - 5.3 mmol/L [facility] Protein [Mass/Vol] 7.4 g/dL Normal 6.0 - 7.8 gm/dL [facility] Sodium [Moles/Vol] 138 mmol/L Normal 135 - 145 mmol/L [facility] Troponin I.cardiac [Mass/Vol] 4.00 pg/mL Low 10.10 - 27.10 pg/mL [facility] Urea nitrogen [Mass/Vol] 21 mg/dL Normal 5 - 21 mg/dL [facility] Urea nitrogen/Creatinine [Mass ratio] 35 mg/mg High 10 - 20 [facility] COAGULATIONOrdered By: Aydee Khan on 05-02-2023 aPTT Coag (PPP) [Time] 31.4 s Normal 25.1 - 36.5 second(s) [facility] Auto Coag INR Coag (PPP) [Relative time] 1.0 {INR} Invalid Interpretation Code [facility] Auto Coag PT Coag (PPP) [Time] 11.0 s Normal 9.4 - 1 2.5 second(s) [facility] Auto Coag CT Abdomen/Pelvis w/ Contras ton [...] Nathanael Trivedi DO Transcribed by: ABRAM Technologist: EVIE Technical Comments GFR (mL/min/1/73m2) 112 Contrast: Isovue 300 Contrast amount in ml's: 100 Rectal Contrast Given? No Oral contrast amount in ml's: 0 Normal [facility] Consent for Treatmenton 04-19 Consent for Treatment [id number] 30 [id number] #1.00CD:127 Normal [facility] Discharge Instructionson Discharge Instructions [id number]:127 Normal [facility] ED Clinical Summaryon 2022 ED Clinical Summary [place] [id number] ED Clinical Summary Person Information Name: TABBY JAY/[facility] Age: 47 Years : 1975 Sex: Female Language: Libyan PCP: ADIEL LUX MD Marital Status: Visit [...] 05/02/2023 21:28:44 05/02/2023 21:28:44 05/02/2023 21:28:44 ADDRESS: [address] [place] [id number] PHYS DOC NOTES: MEDICAL INFORMATION: Prescriptions Given: New Medications [id number], [address] [place], [place] [id number], [phone] dicyclomine (Bentyl 10 mg Cap) 1 Capsules By Mouth 4 times a day for 10 Days. Refills: 0. Medications to Continue Taking That Have Changed [facility] #[id number], [address], [place] [id number], [phone] START: ondansetron (Zofran ODT 4 mg Tab-Dis) [...] PATIENT EDUCATION INFORMATION: Instructions: Abdominal Pain, Adult, Qkpq-iv-Kumw Follow up: With: Address: When: [facility] [address] [place], [place] [id number] Business (1) In 3 days 05/05/2023 With: Address: When: ADIEL MACI [facility] [place] [id number] [email or web address] (1) In 3 days 05/05/2023 Comments: Follow-up with your primary care provider in 3 to 5 days. If symptoms worsen, do not improve, or new (more content not included)... Normal [facility] ED Patient Education Noteon 05-02-2023 ED Patient [...] these instructions at home: Medicines ? Take hzpa-qdm-qrbmpal and prescription medicines only as told by [...] belly pain for any changes. ? Take zhsa-whj-fkjjvfd and prescription medicines only as told by [...] provider. Document Revised: 01/14/2020 Document Reviewed: 01/14/2020 [employer] Patient Education ? 2022 [employer] Normal [facility] ED Patient Summaryon 023 ED Patient Summary [place] [id number] Patient Discharge Instructions Person Information Name: TABBY JAY Age: 47 Years Arrival Date: 05/02/2023 17:12:41 Discharge Diagnosis: Abdominal pain Primary Care Physician: ADIEL LUX MD Provider Information Primary Provider: Gabriel Fournier DO Advanced Forest Scientist:None The exam and treatment you received in the Emergency Department were for an urgent problem and are not intended as complete care. It is important that you follow up with a doctor, nurse practitioner, or physician?s staff assistant for ongoing care. If your symptoms become worse or you do not improve as expected and you are unable to reach your usual health care provider, you should return to the Emergency Department. We are available 24 hours a day. JAYTABBY has been given the following list of patient education materials, prescriptions and follow-up instructions: Follow-up Instructions: With: Address: When: Celso ASTUDILLO [address] [place] [address]. [address] [place], [place] [id number] Business (1) In 3 days 05/05/2023 With: Address: When: ADIEL MACI [address] [place], [place] [id number] Business (1) In 3 days 05/05/2023 Comments: Follow-up [...] provider. Patient Education Materials: Abdominal Pain, Adult, Zogr-of-Xard A MESSAGE TO ALL PATIENTS REGARDING OPIOIDS PRESCRIPTION OPIOIDS: WHAT YOU NEED TO KNOW Prescription opioids can be used to help relieve gjvftxet-vx-kegzic pain and are often prescribed following a [...] Drug Administrati (more content not included)... Normal [facility] HEMATOLOGYOrdered By: SYSTEM SYSTEM on 05-02-2023 Basophils/100 [...] 33.1 g/dL Normal 31.4 - 36.0 gm/dL [facility] HemeAutoSS MCV (RBC) [Entitic vol] 77.0 fL Low 80.0 - 100.0 fL [facility] HemeAutoSS Platelet mean volume (Bld) [Entitic vol] 6.6 fL Normal 6.4 - 10.8 fL [facility] HemeAutoSS Platelets (Bld) [#/Vol] 257.0 E9/L Normal 150.0 - 500.0 E9/L [facility] HemeAutoSS RBC (Bld) [#/Vol] 5.3 E12/L Normal 4.3 - 5.9 E12/L [facility] HemeAutoSS WBC corrected for nucl RBC Auto (Bld) [#/Vol] 10.3 E9/L Normal 4.0 - 11.0 E9/L [facility] HemeAutoSS Hep Func Panelon 05-02-2023 Bilirubin.indirect [Mass or moles/Vol] UT Abnormal 0.1-0.9 [facility] Comment on above: Result Comment: Resu lt verified by Discern Rule. Performed result [facility] (Unable to Calculate) was sent as an Alpha code due the inability to calculate a valid numeric value. Performed By: #### 2 211383, 4733468, 42477156, 1441018, 9116751, 3947017, 83791875 ####[facility] [address] [place] [address] Albumin [Mass/Vol] 3.5 g/dL Normal 3.3-5.0 [facility] Comment on above: Performed By: #### 2 538111, 4280456, 84874959, 2844698, 4403428, 7946354, 37074963 ####[address] [place] [address] Albumin/Globulin (S) [Mass conc ratio] 0.9 Low 1.1-2.2 [facility] Comment on above: Performed By: #### 2 642960, 7573024, 10516969, 2077636, 4894435, 9974631, 90148974 ####[facility] [address] [place] [address] ALP [Catalytic activity/Vol] 63 Int._Unit/L Normal 21-98 [facility] Comment on above: Performed By: #### 2 908761, 1773891, 08416030, 0555108, 8639611, 3064153, 09187298 ####[facility] [address] [place] [address] ALT No additional P-5'-P [Catalytic activity/Vol] 19 Int._Unit/L Normal 6-46 [facility] Comment on above: Performed By: #### 2 397857, 2137644, 90083140, 5034626, 4120360, 1781883, 57100352 ####[facility] [address] [place] [address] AST [Catalytic activity/Vol] 19 Int._Unit/L Normal 5-43 [facility] Comment on above: Performed By: #### 2 038432, 6398847, 32086723, 7194740, 2555411, 3785718, 15869459 ####[facility] [address] [place] [address] Bilirubin [Mass/Vol] 0.4 mg/dL Normal 0.0-1.1 [facility] Comment on above: Performed By: #### 2 072400, 2641037, 38124651, 3175606, 2814815, 1023910, 80000427 ####[address] [place] [address] Globulin (S) [Mass/Vol] 3.9 g/dL Normal 1.4-4.0 [facility] Comment on above: Performed By: #### 2 770279, 2060756, 29730948, 5597104, 0846378, 2842072, 62312424 ####[facility] [address] [place] [address] Protein [Mass/Vol] 7.4 g/dL Normal 6.0-7.8 [facility] Comment on above: Performed By: #### 2 845221, 2589794, 22420455, 1453191, 3249905, 4586547, 87848973 ####[address] [address] Bilirubin.direct [Mass/Vol] mg/dL Normal 0.1-0.4 [facility] Comment on above: Performed By: #### 2 065487, 3799915, 21408647, 8469349, 2363628, 7248599, 26946202 ####[address] [place] [address] Lipase Levelon 05-02-2023 Lipase [Catalytic activity/Vol] 24 U/L Normal 13-58 [facility] Comment on above: Performed By: #### 2 743867, 2861417, 59791554, 7304855, 7722622, 2085384, 12699661 ####[facility] [address] [place] [address] PT & PTTon 05-02-2023 aPTT Coag (PPP) [Time] 31.4 second(s) Normal 25.1-36.5 [facility] Comment on above: Result Comment: Para meter [...] the same coagulation reagent and instrumentation as [facility]. Currently there are no coagulation studies available worldwide for children to 14 days, and no normal ranges. Heparin therapeutic range (represented by Anti-Factor Xa activity of 0.2 - 0.4 U/mL) corresponds to PTT of 56.6 - 109.0 sec. Performed By: #### 1 3134737 ####[facility] [address] [place] [address] INR Coag (PPP) [Relative time] 1.0 {INR} Invalid Interpretation Code [facility] Comment on above: Result Comment: INR results are specifically intended to assess patients stabilized on long-term Anticoagulation therapy suggested INR?s ?Less Intensive Anticoagulation? 2.0 ? 3.0 Conventional Range 3.0 ? 4.5 Performed By: #### 1 6545676 ####[facility] [address] [place] [address] PT Coag (PPP) [Time] 11.0 second(s) Normal 9.4-12.5 [facility] Comment on above: Result Comment: 15 d [...] the same coagulation reagent and instrumentation as [facility]. Currently there are no coagulation studies available worldwide for children to 14 days, and no normal ranges. Performed By: #### 1 2512276 ####[facility] [address] [place] [address] Troponin 0 Hr.on 05-02-2023 Troponin I.cardiac [Mass/Vol] 4.00 pg/mL Low 10.10-27.10 [facility] Comment on above: Result Comment: The 95% CI (Confidence Interval) PPV (Positive Predictive Value) for myocardial infarction in females is 38 pg/mL, in males 51 pg/mL. The results should be used in conjunction with clinical conditions of myocardial infarction. (Access High Sensitivity Troponin I Instructions For Use, Colette [employer], April 2018) Performed By: #### 2 510849, 9792105, 66345501, 3216817, 0421558, 1225457, 44206755 ####[facility] [address] [place] [address] UA With Cult Reflexon 2022 Bacteria LM Ql (Urine sed) TRACE Normal Trace [facility] Comment on above: Performed By: #### 1 3732087 ####[facility] [address] [place] [address] Bilirubin Ql (U) Negative Normal Negative [facility] Comment on above: Performed By: #### 1 5196719 ####[facility] [address] [place] [address] Clarity (U) CLEAR Normal Clear [facility] Comment on above: Performed By: #### 1 3272431 ####[facility] [address] [place] [address] Color (U) YELLOW Normal Yellow [facility] Comment on above: Performed By: #### 1 3621349 ####[address] [address] Epithelial cells.squamous LM.HPF (Urine sed) [#/Area] 9-10 Normal 0-2 [facility] Comment on above: Performed By: #### 1 0849179 ####[address] [address] Glucose Test strip (U) [Mass/Vol] Negative Normal Negative [facility] Comment on above: Performed By: #### 1 0522991 ####[address] [address] Hemoglobin Ql (U) 1+ Abnormal Negative [facility] Comment on above: Performed By: #### 1 0588539 ####[address] [address] Ketones (U) [Mass/Vol] Negative Normal Negative [facility] Comment on above: Performed By: #### 1 4098677 ####[address] [address] [place].plasma/[place] .RBC (Bld) [Mass ratio] 4-20 Normal 0-3 [facility] Comment on above: Performed By: #### 1 9274101 ####[address] [address] Nitrite Ql (U) Negative Normal Negative [facility] Comment on above: Performed By: #### 1 3072198 ####[address] [place] [address] pH (U) 5.5 [pH] Invalid Interpretation Code 5.0-9.0 [facility] Comment on above: Performed By: #### 1 1359486 ####[address] [address] Protein (U) [Mass/Vol] Negative Normal Negative [facility] Comment on above: Performed By: #### 1 1308163 ####[facility] [address] [place] [address] Specific gravity (U) [Rel density] >=1.030 Invalid Interpretation Code 1.005-1.030 [facility] Comment on above: Performed By: #### 1 3307457 ####[address] [address] Type of Urine collection method Clean Catch Normal [facility] Comment on above: Performed By: #### 1 7656677 ####[address] [address] Urobilinogen Qn (U) 0.2 {Shani'U}/dL Normal 0.0-1.0 [facility] Comment on above: Performed By: #### 1 3396143 ####[address] [address] WBC Auto Ql (U) Negative Normal Negative [facility] Comment on above: Performed By: #### 1 7414610 ####[address] [address] WBC LM.HPF (Urine sed) [#/Area] 0-5 Normal 0-5 [facility] Comment on above: Performed By: #### 1 1401263 ####[place] [id number] URINALYSISOrdered By: Jd Khan on 05-02-2023 Bacteria LM Ql (Urine sed) Trace /HPF Normal Trace/HPF [facility] UA Auto SS Bilirubin Ql (U) Negative (05/02/23 7:00 PM) Normal Negative [facility] Auto SS Clarity (U) Clear (05/02/23 7:00 PM) Normal Clear [facility]A Auto SS Color (U) Yellow (05/02/23 7:00 PM) Normal Yellow [facility] Auto SS Epithelial cells.squamous LM.HPF (Urine sed) [#/Area] 9-10 /HPF Normal 0-2/HPF [facility] Aut o SS Glucose Test strip (U) [Mass/Vol] Negative (05/02/23 7:00 PM) Normal Negative [facility] UA Auto SS Hemoglobin Ql (U) 1+ *ABN* (05/02/23 7:00 PM) Invalid Interpretation Code Negative [facility] UA Auto SS Ketones (U) [Mass/Vol] Negative (05/02/23 7:00 PM) Normal Negative [facility] UA Auto SS [place].plasma/[place] .RBC (Bld) [Mass ratio] 4-20 /HPF Normal 0-3/HPF [facility] Auto SS Nitrite Ql (U) Negative (05/02/23 7:00 PM) Normal Negative [facility] UA Auto SS pH (U) 5.5 *NA* (05/02/23 7:00 PM) Invalid Interpretation Code 5.0 - 9.0 [facility] Auto SS Protein (U) [Mass/Vol] Negative (05/02/23 7:00 PM) Normal Negative [facility] UA Auto SS Specific gravity (U) [Rel density] >=1.030 *NA* (05/02/23 7:00 PM) Invalid Interpretation Code 1.005 - 1.030 [facility] UA Auto SS UA Spec Desc Clean Catch (05/02/23 7:00 PM) Normal [facility] UA Auto SS Urobilinogen Qn (U) 0.0258518 {Shani'U}/dL Normal 0.0 - 1.0 EU/dL [facility]A Auto SS WBC Auto Ql (U) Negative (05/02/23 7:00 PM) Normal Negative [facility] UA Auto SS WBC LM.HPF (Urine sed) [#/Area] 0-5 /HPF Normal 0-5/HPF [facility] UA Auto SS XR Chest Single Viewon [...] mGy = na DAP = na Normal [facility] eGFRon 05-02-2023 GFR/1.73 sq M.predicted among non-blacks MDRD (S/P/Bld) [Vol rate/Area] 112 mL/min/1.73 m2 Normal >=59 [facility] Comment on above: Order Comment: Order added by Discern Expert. Result Comment: Social Human Services Assistants nick kidney disease could be indicated at eGFR's of less than 60 mL/min/1.73m2. Kidney failure is indicated at less than 15 mL/min/1.73m2. Performed By: #### 2 [id number], [id number], [id number], [id number], [id number], [id number] ####[facility] [id number] [place] [address] CBC AUTO DIFFon 09-15-2022 BASO # 0.0 103/ul Normal 0.0-0.1 [facility] Comment on above: Performed By: #### C BC #### [facility] [address] [place] [address] Dr. Katie Perez Basophils/100 WBC (Bld) 0.2 % Normal 0.2-2.0 [facility] Comment on above: Performed By: #### C BC #### [facility] [address] [place] [address] Dr. Katie Perez EO # 0.0 103/ul Normal 0.0-0.7 [facility] Comment on above: Performed By: #### C BC #### [facility] [address] [place] [address] Dr. Katie Perez Eosinophils/100 WBC (Bld) 0.4 % Critically low 0.9-7.0 [facility] Comment on above: Performed By: #### C BC #### [facility] [address] [place] [address] Dr. Katie Perez Erythrocyte distribution width (RBC) [Ratio] 16.1 % Critically high 11.0-15.0 [facility] Comment on above: Performed By: #### C BC #### [facility] [address] [place] [address] Dr. Katie Perez Hematocrit (Bld) [Volume fraction] 44.8 % Normal 36.0-48.0 [facility] Comment on above: Performed By: #### C BC #### [facility] [address] [place] [address] Dr. Katie Perez Hemoglobin (Bld) [Mass/Vol] 13.9 g/dL Normal 12.0-16.0 [facility] Comment on above: Performed By: #### C BC #### [facility] [address] [place] [address] Dr. Katie Perez IG # 0.03 10e3/ul Normal 0.00-0.03 [facility] Comment on above: Performed By: #### C BC #### [facility] [address] [place] [address] Dr. Katie Perez IG % 0.3 % Normal 0.0-0.5 [facility] Comment on above: Performed By: #### C BC #### [facility] [address] [place] [address] Dr. Katie Perez LYMPH # 2.9 103/ul Normal 1.2-3.8 [facility] Comment on above: Performed By: #### C BC #### [facility] [address] [place] [address] Dr. Katie Perez Lymphocytes/100 WBC (Bld) 31.3 % Normal 20.5-60.0 [facility] Comment on above: Performed By: #### C BC #### [facility] [address] [place] [address] Dr. Katie Perez MANUAL DIFF REQ NO Normal [facility] Comment on above: Performed By: #### C BC #### [facility] [address] [place] [address] Dr. Katie Perez MCH (RBC) [Entitic mass] 23.4 pg Critically low 26.7-34.0 [facility] Comment on above: Performed By: #### C BC #### [facility] [address] [address] [address] Katie Perez MCHC (RBC) [Mass/Vol] 31.0 g/dL Normal 29.9-35.2 [facility] Comment on above: Performed By: #### C BC #### [facility] [address] [place] [address] Dr. Katie Perez MCV (RBC) [Entitic vol] 75.4 fL Critically low 81.0-99.0 [facility] Comment on above: Performed By: #### C BC #### [facility] [address] [place] [address] Dr. Katie Perez MONO # 0.4 103/ul Normal 0.3-0.8 [facility] Comment on above: Performed By: #### C BC #### [facility] [address] [place] [address] Dr. Katie Perez Monocytes/100 WBC (Bld) 4.7 % Normal 1.7-12.0 [facility] Comment on above: Performed By: #### C BC #### [facility] [address] [place] [address] Dr. Katie Perez NEUT # 5.9 103/ul Normal 1.4-6.5 [facility] Comment on above: Performed By: #### C BC #### [facility] [address] [place] [address] Dr. Katie Perez Neutrophils/100 WBC (Bld) 63.1 % Normal 43.0-75.0 [facility] Comment on above: Performed By: #### C BC #### [facility] [address] [place] [address] Dr. Katie Perez Platelet mean volume (Bld) [Entitic vol] 8.5 fL Critically low 9.5-13.5 [facility] Comment on above: Performed By: #### C BC #### [facility] [address] [place] [address] Dr. Katie Perez PLT 295 103/ul Normal 150-450 [facility] Comment on above: Performed By: #### C BC #### [facility] [address] [place] [address] Dr. Katie Perez RBC 5.94 106/ul Critically high 4.20-5.40 [facility] Comment on above: Performed By: #### C BC #### [facility] [address] [address] [address] Katie Perez WBC 9.3 103/ul Normal 4.0-11.0 [facility] Comment on above: Performed By: #### C BC #### [facility] [address] [address] [address] ABD/PELVIS WO CONon [...] DIPESH JACKSON Date: 2022-09-15 20:05 Normal [facility] CULTURE URINEon 09-15-2022 CULTURE URINE Culture Observations: NO GROWTH. Normal [facility] Comment on above: Performed By: #### U RCX #### [facility] [address] [place] [address] Dr. Katie Perez Covid-19 PCR (CVDTB)on 08-20 SARS-CoV-2 (COVID-19) RNA JB+probe Ql (Unsp spec) Detected Critically abnormal NOT DETECTED [facility] Comment on above: Result Comment: This test is not yet approved or cleared by the [place] FDA. When there are no FDA-approved or cleared tests available, and other criteria are met, FDA can make tests available under an emergency access mechanism called an Emergency Use Authorization (EUA). The EUA for this test is supported by the Telecommunication Equipment Repairer of Health and Human Service's (HHS's) declaration [...] used). Performed By: #### C VDTBH #### [facility] [address] [place] [address] Dr. Katie Perez ER URINE PROFILEon Bilirubin Ql (U) SMALL Abnormal NEGATIVE [facility] Comment on above: Performed By: #### U MICRO, ERUR #### [facility] [address] [place] [address] Dr. Katie Perez Clarity (U) CLEAR Normal CLEAR [facility] Comment on above: Performed By: #### U MICRO, ERUR #### [facility] [address] [place] [address] Dr. Katie Perez Color (U) DK. YELLOW Normal YELLOW [facility] Comment on above: Performed By: #### U MICRO, ERUR #### [facility] [address] [place] [address] Dr. Katie Perez ERUAHD A micrscopic examination will be performed if indicated. Normal [facility] Comment on above: Performed By: #### U MICRO, ERUR #### [facility] [address] [address] [address] Katie Perez Glucose Ql (U) Negative Normal NEGATIVE [facility] Comment on above: Performed By: #### U MICRO, ERUR #### [facility] [address] [address] [address] Katie Perez Hemoglobin Ql (U) LARGE Abnormal NEGATIVE [facility] Comment on above: Performed By: #### U MICRO, ERUR #### [facility] [address] [address] [address] Katie Perez Ketones Ql (U) Negative Normal NEGATIVE [facility] Comment on above: Performed By: #### U MICRO, ERUR #### [facility] [address] [place] [address] Dr. Katie Perez LEUKOCYTES Negative Normal NEGATIVE [facility] Comment on above: Performed By: #### U MICRO, ERUR #### [facility] [address] [address] [address] Katie Perez Nitrite Ql (U) Negative Normal NEGATIVE [facility] Comment on above: Performed By: #### U MICRO, ERUR #### [facility] [address] [address] [address] Katie Perez pH (U) 5.0 [pH] Normal 5-9 [facility] Comment on above: Performed By: #### U MICRO, ERUR #### [facility] [address] [place] [address] Dr. Katie Perez SPEC GRAVITY >=1.030 Abnormal 1.005-<=1.02 5 [facility] Comment on above: Performed By: #### U MICRO, ERUR #### [facility] [address] [address] [address] Katie Perez UA PROTEIN TRACE Normal NEGATIVE/ TRACE [facility] Comment on above: Performed By: #### U MICRO, ERUR #### [facility] [address] [place] [address] Dr. Katie Perez UR MICRO IND INDICATED Normal [facility] Comment on above: Performed By: #### U MICRO, ERUR #### [facility] [address] [address] [address] Katie Perez Urobilinogen Qn (U) 1.0 {Shani'U}/dL Normal 0.2 - 1. 0 [facility] Comment on above: Performed By: #### U MICRO, ERUR #### [facility] [address] [place] [address] Dr. Katie Perez INFLUENZA A AND B AGon 09-15 INFLUANEGH SEE BELOW Normal [facility] Comment on above: Result Comment: Nega tive for Flu A protein angiten. Infection due to Flu A cannot be ruled out. Flu A angiten in the sample may be below the detection limit of the test. Performed By: #### I NFLUAB #### [facility] [address] [place] [address] Dr. Katie Perez INFLUBNEGH SEE BELOW Normal [facility] Comment on above: Result Comment: Nega tive for Flu B protein antigen. Infection due to Flu B cannot be ruled out. Flu B antigen in the sample may be below the detection limit of the test. Performed By: #### I NFLUAB #### [facility] [address] [place] [address] Dr. Katie Perez INFLUENZA A AG Negative Normal NEGATIVE SEE COMMENT [facility] Comment on above: Performed By: #### I NFLUAB #### [facility] [address] [place] [address] Dr. Katie Perez INFLUENZA B AG Negative Normal NEGATIVE SEE COMMENT [facility] Comment on above: Performed By: #### I NFLUAB #### [facility] [address] [place] [address] Dr. Katie Perez LIPASEon 09-15-2022 Lipase [Catalytic activity/Vol] 54.0 U/L Critically low 73.0-393.0 [facility] Comment on above: Performed By: #### C MP, LIPA #### [facility] [address] [place] [address] Dr. Katie Perez PROF 14(COMP METB)on 022 Albumin [Mass/Vol] 3.3 g/dL Critically low 3.4-5.0 Th e [facility] Comment on above: Performed By: #### C MP, LIPA #### [facility] [address] [address] [address] Katie Perez Albumin/Globulin [Mass ratio] 0.8 {ratio} Normal [facility] Comment on above: Performed By: #### C MP, LIPA #### [facility] [address] [address] [address] Katie Perez ALP [Catalytic activity/Vol] 90 U/L Normal 46-116 [facility] Comment on above: Performed By: #### C MP, LIPA #### [facility] [address] [address] [address] Katie Perez ALT [Catalytic activity/Vol] 49 U/L Normal 14-59 [facility] Comment on above: Performed By: #### C MP, LIPA #### [facility] [address] [address] [address] Katie Perez Anion gap [Moles/Vol] 12.7 mmol/L Normal [facility] Comment on above: Performed By: #### C MP, LIPA #### [facility] [address] [address] [address] Katie Perez AST [Catalytic activity/Vol] 24 U/L Normal 15-37 [facility] Comment on above: Performed By: #### C MP, LIPA #### [facility] [address] [address] [address] Katie Perez Bilirubin [Mass/Vol] 0.5 mg/dL Normal 0.2-1.0 [facility] Comment on above: Performed By: #### C MP, LIPA #### [facility] [address] [address] [address] Katie Perez Calcium [Mass/Vol] 8.9 mg/dL Normal 8.5-10.1 [facility] Comment on above: Performed By: #### C MP, LIPA #### [facility] [address] [address] [address] Katie Perez Chloride [Moles/Vol] 100 mmol/L Normal 98-107 [facility] Comment on above: Performed By: #### C MP, LIPA #### [facility] [address] [address] [address] Katie Perez CO2 [Moles/Vol] 28.2 mmol/L Normal 21.0-32.0 [facility] Comment on above: Performed By: #### C MP, LIPA #### [facility] [address] [address] [address] Katie Perez Creatinine [Mass/Vol] 0.74 mg/dL Normal 0.55-1.02 [facility] Comment on above: Performed By: #### C MP, LIPA #### [facility] [address] [address] [address] Katie Perez EGFR-AF BURMESE >60 Normal >=60 [facility] Comment on above: Performed By: #### C MP, LIPA #### [facility] [address] [address] [address] Katie Perez EGFR-NON AF BURMESE >60 Normal >=60 [facility] Comment on above: Performed By: #### C MP, LIPA #### [facility] [address] [address] [address] Katie Perez Globulin (S) [Mass/Vol] 4.4 g/dL Normal [facility] Comment on above: Performed By: #### C MP, LIPA #### [facility] [address] [address] [address] Katie Perez Glucose [Mass/Vol] 90 mg/dL Normal 74-106 [facility] Comment on above: Performed By: #### C MP, LIPA #### [facility] [address] [address] [address] Katie Perez Potassium [Moles/Vol] 3.9 mmol/L Normal 3.5-5.1 [facility] Comment on above: Performed By: #### C MP, LIPA #### [facility] [address] [address] [address] Katie Perez Protein [Mass/Vol] 7.7 g/dL Normal 6.4-8.2 [facility] Comment on above: Performed By: #### C MP, LIPA #### [facility] [address] [address] [address] Katie Perez Sodium [Moles/Vol] 137 mmol/L Normal 136-145 [facility] Comment on above: Performed By: #### C MP, LIPA #### [facility] [address] [place] [address] Dr. Katie Perez Urea nitrogen [Mass/Vol] 21.0 mg/dL Critically high 7.0-18.0 [facility] Comment on above: Performed By: #### C MP, LIPA #### [facility] [address] [place] [address] Dr. Katie Perez Urea nitrogen/Creatinine [Mass ratio] 28.4 mg/mg Normal [facility] Comment on above: Performed By: #### C MP, LIPA #### [facility] [address] [place] [address] Dr. Katie Perez URINE MICROSCOPIC ONLYon BACTERIA TRACE Abnormal NONE SEEN [facility] Comment on above: Performed By: #### U MICRO, ERUR #### [facility] [address] [place] [address] Dr. Katie Perez Bacteria identified Cx Nom (U) INDICATED Normal [facility] Comment on above: Performed By: #### U MICRO, ERUR #### [facility] [address] [place] [address] Dr. Katie Perez CAST NONE SEEN Normal NONE SEEN [facility] Comment on above: Performed By: #### U MICRO, ERUR #### [facility] [address] [place] [address] Dr. Katie Perez Crystals LM Nom (Urine sed) NONE SEEN Normal NONE SEEN [facility] Comment on above: Performed By: #### U MICRO, ERUR #### [facility] [address] [place] [address] Dr. Katie Perez Epithelial cells LM Ql (Urine sed) FEW Abnormal NONE SEEN /RARE [facility] Comment on above: Performed By: #### U MICRO, ERUR #### [facility] [address] [address] [address] Katie Perez MUCOUS NONE SEEN Normal NONE SEEN [facility] Comment on above: Performed By: #### U MICRO, ERUR #### [facility] [address] [address] [address] Katie Perez RBC 5-10 Abnormal 0-2 [facility] Comment on above: Performed By: #### U MICRO, ERUR #### [facility] [address] [address] [address] Katie Perez WBC 0-2 Abnormal NONE SEEN [facility] Comment on above: Performed By: #### U MICRO, ERUR #### [facility] [address] [address] [address] ABD/PEL WO IVCONon 2021 CT ABD/PEL WO IVCON * * *Final Report* * * DATE OF EXAM: May 13 2022 12:00AM [facility] 0531 - CT ABD/PEL WO IVCON / [...] spine. L4-L5 posterior fusion. Lower thorax: Unremarkable. Pipe Manufacture Supervisor (topogram) images: No additional findings. IMPRESSION: No acute abnormality is identified within the abdomen or pelvis. 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 Physical Exam Vitals [05/12/221953] BP Pulse Temp Temp src Resp SpO2 [...] is cooperative. (more content not included)... Normal [facility] US DVT LOWER LTon 05-13-2022 US DVT LOWER LT * * *Final Report* * * DATE OF EXAM: May 12 2022 10:57PM [facility] 1006 - US DVT LOWER LT / [...] not well visualized. 2. Left Ambrose's cyst. Rewind Operator: MILTON Transcribe Date/Time: May 12 2022 11:01P Dictated by : WHITLEY GILLESPIE MD This examination was interpreted and the report reviewed and electronically signed by: WHITLEY GILLESPIE MD on May 12 2022 11:02PM EST [id number] CN Normal [facility] CBC W Auto Differential pane l (Bld)on 05-12-2022 Basophils (Bld) [#/Vol] 0.03 10*3/uL Normal <0.11 [facility] Comment on above: Order Comment: Speci men Type: BLOOD SPECIMEN Ordering Facility: [facility] Address: [address] [place] [address] Performed By: #### 5 7021-8 #### [facility] CLIA [id number] [place] [address] [place] Basophils/100 WBC (Bld) 0.3 % Normal [facility] Comment on above: Order Comment: Speci men Type: BLOOD SPECIMEN Ordering Facility: [facility] Address: [address] [place] [address] Performed By: #### 5 7021-8 #### [facility] CLIA [id number] [address] [place] [address] [place] Differential cell count method Nom (Bld) Auto Normal [facility] ital Comment on above: Order Comment: Speci men Type: BLOOD SPECIMEN Ordering Facility: [facility] Address: [address] [place] [address] Performed By: #### 5 7021-8 #### [facility] CLIA [id number] [place] [id number] [place] Eosinophils (Bld) [#/Vol] 0.07 10*3/uL Normal <0.46 [facility] Comment on above: Order Comment: Speci men Type: BLOOD SPECIMEN Ordering Facility: [facility] Address: [address] [place] [address] Performed By: #### 5 7021-8 #### [facility] CLIA [id number] [address] [place] [id number] [place] Eosinophils/100 WBC (Bld) 0.6 % Normal [facility] Comment on above: Order Comment: Speci men Type: BLOOD SPECIMEN Ordering Facility: [facility] Address: [address] [place], [place] [id number] Performed By: #### 5 7021-8 #### [facility] [place] [id number] [place] Erythrocyte distribution width (RBC) [Ratio] 16.1 % High 11.5-15.0 [facility] Comment on above: Order Comment: Speci men Type: BLOOD SPECIMEN Ordering Facility: [facility] Address: [address] [place], [place] [id number] Performed By: #### 5 7021-8 #### [facility] [place] [id number] [address] [place] Hematocrit (Bld) [Volume fraction] 42.1 % Normal 36.0-46.0 [facility] Comment on above: Order Comment: Speci men Type: BLOOD SPECIMEN Ordering Facility: [facility] Address: [address] [place], [place] [id number] Performed By: #### 5 7021-8 #### [facility] [place] [id number] [address] [place] [address] [place] Hemoglobin (Bld) [Mass/Vol] 12.5 g/dL Normal 11.5-15.5 [facility] Comment on above: Order Comment: Speci men Type: BLOOD SPECIMEN Ordering Facility: [facility] Address: [address] [place], [place] [id number] Performed By: #### 5 7021-8 #### [facility] [place] [id number] [address] [place] [address] [place] IMMATURE GRAN % 0.3 % Normal [facility] ital Comment on above: Order Comment: Speci men Type: BLOOD SPECIMEN Ordering Facility: [facility] Address: [address] [place], [place] [id number] Performed By: #### 5 7021-8 #### [facility] [facility] [place] [id number] [address] [place] [address] [place] IMMATURE GRAN ABS 0.04 k/uL Normal <0.10 [facility] Comment on above: Order Comment: Speci men Type: BLOOD SPECIMEN Ordering Facility: [facility] Address: [address] [place], [place] [address] Performed By: #### 5 7021-8 #### [facility] CLIA [id number] [address] [place] [address] [place] Lymphocytes (Bld) [#/Vol] 3.54 10*3/uL Normal 1.00-4.00 [facility] Comment on above: Order Comment: Speci men Type: BLOOD SPECIMEN Ordering Facility: [facility] Address: [address] [place], [place] [address] Performed By: #### 5 7021-8 #### [facility] IA [id number] [address] [place] [address] Lymphocytes/100 WBC (Bld) 30.8 % Normal [facility] Comment on above: Order Comment: Speci men Type: BLOOD SPECIMEN Ordering Facility: [facility] Address: [address] [place], [place] [address] Performed By: #### 5 7021-8 #### [facility] IA [id number] [address] [place] [address] [place] MCH (RBC) [Entitic mass] 23.2 pg Low 26.0-34.0 [facility] Comment on above: Order Comment: Speci men Type: BLOOD SPECIMEN Ordering Facility: [facility] Address: [address] [place], [place] [address] Performed By: #### 5 7021-8 #### [facility] CLIA [id number] [address] [place] [address] [place] MCHC (RBC) [Mass/Vol] 29.7 g/dL Low 30.5-36.0 [facility] Comment on above: Order Comment: Speci men Type: BLOOD SPECIMEN Ordering Facility: [facility] Address: [address] [place], [place] [address] Performed By: #### 5 7021-8 #### [facility] CLIA [id number] [address] [place] [address] [place] MCV (RBC) [Entitic vol] 78.1 fL Low 80.0-100.0 [facility] Comment on above: Order Comment: Speci men Type: BLOOD SPECIMEN Ordering Facility: [facility] Address: [address] [place] [address] Performed By: #### 5 7021-8 #### [facility] IA [id number] [address] [place] [address] [place] Monocytes (Bld) [#/Vol] 0.65 10*3/uL Normal <0.87 [facility] Comment on above: Order Comment: Speci men Type: BLOOD SPECIMEN Ordering Facility: [facility] Address: [address] [place] [address] Performed By: #### 5 7021-8 #### [facility] IA [id number] [address] [place] [address] [place] Monocytes/100 WBC (Bld) 5.6 % Normal [facility] Comment on above: Order Comment: Speci men Type: BLOOD SPECIMEN Ordering Facility: [facility] Address: [address] [place] [address] Performed By: #### 5 7021-8 #### [facility] IA [id number] [address] [place] [address] [place] Neutrophils (Bld) [#/Vol] 7.18 10*3/uL Normal 1.45-7.50 [facility] Comment on above: Order Comment: Speci men Type: BLOOD SPECIMEN Ordering Facility: [facility] Address: [address] [place] [address] Performed By: #### 5 7021-8 #### [facility] IA [id number] [address] [place] [address] [place] Neutrophils/100 WBC (Bld) 62.4 % Normal [facility] Comment on above: Order Comment: Speci men Type: BLOOD SPECIMEN Ordering Facility: [facility] Address: [address] Performed By: #### 5 7021-8 #### [facility] IA [id number] [address] [place] [address] [place] Nucleated RBC (Bld) [#/Vol] 10*3/uL Normal <0.01 [facility] Comment on above: Order Comment: Speci men Type: BLOOD SPECIMEN Ordering Facility: [facility] Address: [address] [place], [place] [address] Performed By: #### 5 7021-8 #### [facility] IA [id number] [address] [place] [address] [place] Nucleated RBC/100 WBC (Bld) [Ratio] 0.0 /100 WBC Normal [facility] Comment on above: Order Comment: Speci men Type: BLOOD SPECIMEN Ordering Facility: [facility] Address: [address] [place], [place] [phone] Performed By: #### 5 7021-8 #### [facility] IA [id number] [address] [place] [address] [place] Platelet mean volume (Bld) [Entitic vol] 9.0 fL Normal 9.0-12.7 [facility] Comment on above: Order Comment: Speci men Type: BLOOD SPECIMEN Ordering Facility: [facility] Address: [address] Performed By: #### 5 7021-8 #### [facility] CLIA [id number] [address] [place] [address] [place] Platelets (Bld) [#/Vol] 301 10*3/uL Normal 150-400 [facility] Comment on above: Order Comment: Speci men Type: BLOOD SPECIMEN Ordering Facility: [facility] Address: [address] [place] [address] Performed By: #### 5 7021-8 #### [facility] CLIA [id number] [address] [place] [address] [place] RBC (Bld) [#/Vol] 5.39 10*6/uL High 3.90-5.20 [facility] Comment on above: Order Comment: Michelle high Type: BLOOD SPECIMEN Ordering Facility: [facility] Address: [address] [place] [address] Performed By: #### 5 7021-8 #### [facility] CLIA [id number] [address] [place] [address] [facility] WBC (Bld) [#/Vol] 11.51 10*3/uL High 3.70-11.00 [facility] Comment on above: Order Comment: Michelle high Type: BLOOD SPECIMEN Ordering Facility: [facility] Address: [address] [place] [address] Performed By: #### 5 7021-8 #### [facility] CLIA [id number] OF [facility] CNPMelinda 05-12-2022 CNPN Telephone (GENSMN) TABBY JAY ([id number]) 1975 F [facility] Date Time Provider Department 05/12/22 ALLYSON VIEIRA During your visit today, we recorded the following information about you: Allyson Vieira RN 05/12/2022 2:57 PM Signed Called patient regarding 06/[address] Cardoso. Patient stated tearfully I'm in so much pain and I can't get a CT scan done anywhere because of my weight. I went to [facility] yesterday and they couldn't do it so now I'm waiting for my to come home to take me somewhere else Patient describes abdominal pain as sharp and constant 10/10 encompassing entire abdomen with left side most severe. After placing patient on hold, called [facility] to confirm [address] weight limit [address]. Informed patient and advised to go to [facility] ED for eval. Instructed to call [...] Status:Closed by ALLYSON VIEIRA on 05/12/22 Normal [facility] Comprehensive metabolic 2000 panelon 05-12-2022 Albumin [Mass/Vol] 4.0 g/dL Normal 3.9-4.9 [facility] Comment on above: Order Comment: Speci men Type: BLOOD SPECIMEN Ordering Facility: [facility] Address: [address] [place] [address] Performed By: #### 2 4323-8, 13679-8, 0-3 #### [facility] CLIA [id number] [address] [place] [address] [place] ALP [Catalytic activity/Vol] 89 U/L Normal 34-123 [facility] Comment on above: Order Comment: Speci men Type: BLOOD SPECIMEN Ordering Facility: [facility] Address: [address] [place] [address] Performed By: #### 2 4323-8, 27448-3, 0-3 #### [facility] CLIA [id number] [address] [place] [address] [place] ALT [Catalytic activity/Vol] 22 U/L Normal 7-38 [facility] Comment on above: Order Comment: Speci men Type: BLOOD SPECIMEN Ordering Facility: [facility] Address: [address] [place] [address] Performed By: #### 2 4323-8, 09811-5, 0-3 #### [facility] CLIA [id number] [address] [place] [address] [place] Anion gap [Moles/Vol] 13 mmol/L Normal 9-18 [facility] Comment on above: Order Comment: Speci men Type: BLOOD SPECIMEN Ordering Facility: [facility] Address: [address] [place] [address] Performed By: #### 2 4323-8, 64109-6, 3039-3 #### [facility] CLIA [id number] [address] [place] [address] [place] AST [Catalytic activity/Vol] 13 U/L Normal 13-35 [facility] Comment on above: Order Comment: Speci men Type: BLOOD SPECIMEN Ordering Facility: [facility] Address: [address] [place] [address] Performed By: #### 2 4323-8, , 3 #### [facility] CLIA [id number] [address] [place] [address] [place] Bilirubin [Mass/Vol] 0.3 mg/dL Normal 0.2-1.3 [facility] Comment on above: Order Comment: Speci men Type: BLOOD SPECIMEN Ordering Facility: [facility] Address: [address] [place] [address] Performed By: #### 2 4323-8, , 3 #### [facility] IA [id number] [address] [place] [address] [place] Calcium [Mass/Vol] 9.3 mg/dL Normal 8.5-10.2 [facility] Comment on above: Order Comment: Speci men Type: BLOOD SPECIMEN Ordering Facility: [facility] Address: [address] [place], [place] [address] Performed By: #### 2 4323-8, , 3039-3 #### [facility] CLIA [id number] [address] [place] [address] [place] Chloride [Moles/Vol] 100 mmol/L Normal 97-105 [facility] Comment on above: Order Comment: Speci men Type: BLOOD SPECIMEN Ordering Facility: [facility] Address: [address] [place] [address] Performed By: #### 2 4323-8, 03120-4, 3039-3 #### [facility] CLIA [id number] [address] [place] [address] [place] CO2 [Moles/Vol] 24 mmol/L Normal 22-30 [facility] Comment on above: Order Comment: Speci men Type: BLOOD SPECIMEN Ordering Facility: [facility] Address: [address] [place] [address] Performed By: #### 2 4323-8, , 3 #### [facility] CLIA [id number] [address] [place] [address] [place] Creatinine [Mass/Vol] 0.58 mg/dL Normal 0.58-0.96 [facility] Comment on above: Order Comment: Speci men Type: BLOOD SPECIMEN Ordering Facility: [facility] Address: [address] [place] [address] Performed By: #### 2 4323-8, , 3 #### [facility] CLIA [id number] [address] [place] [address] [place] ESTIMATED GLOMERULAR FILTRATION RATE 114 mL/min/1.73m??? Normal >=60 [facility] l Comment on above: Order Comment: Speci men Type: BLOOD SPECIMEN Ordering Facility: [facility] Address: [address] [place] [phone] Result Comment: Shilpa mated Glomerular Filtration Rate [...] actual GFR. Performed By: #### 2 4323-8, 82108-6, 0-3 #### [facility] CLIA [id number] [address] [place] [address] [place] Glucose [Mass/Vol] 140 mg/dL High 74-99 [facility] Comment on above: Order Comment: Michelle high Type: BLOOD SPECIMEN Ordering Facility: [facility] Address: [address] [place] [address] Result Comment: The [place] Diabetes Association (ADA) provides guidance for cutoff [...] Standards of Medical Care in Diabetes 2016, [place] Diabetes Association. Diabetes Care. 2016.39(Suppl 1). Performed By: #### 2 4323-8, 17602-5, 0-3 #### [facility] CLIA [id number] [address] [place] [address] [place] Potassium [Moles/Vol] 3.6 mmol/L Low 3.7-5.1 [facility] Comment on above: Order Comment: Michelle high Type: BLOOD SPECIMEN Ordering Facility: [facility] Address: [address] [place] [address] Performed By: #### 2 4323-8, , 0-3 #### [facility] CLIA [id number] [address] [place] [address] [place] Protein [Mass/Vol] 7.2 g/dL Normal 6.3-8.0 [facility] Comment on above: Order Comment: Michelle high Type: BLOOD SPECIMEN Ordering Facility: [facility] Address: [address] [place] [address] Performed By: #### 2 4323-8, , 0-3 #### [facility] CLIA [id number] [address] [place] [address] [place] Sodium [Moles/Vol] 137 mmol/L Normal 136-144 [facility] Comment on above: Order Comment: Speci men Type: BLOOD SPECIMEN Ordering Facility: [facility] Address: [address] [place] [phone] Performed By: #### 2 4323-8, 99019-1, 0-3 #### [facility] CLIA [id number] [address] [place] [address] [place] Urea nitrogen [Mass/Vol] 19 mg/dL Normal 7-21 [facility] Comment on above: Order Comment: Speci men Type: BLOOD SPECIMEN Ordering Facility: [facility] Address: [address] Performed By: #### 2 4323-8, , 3 #### [facility] CLIA [id number] [address] [place], [place] [address] [place] [address] [place] OF [facility] ED NOTEon 05-12-2022 ED NOTE HNO ID: [id number] Author: Claudia Pagan RN Service: ? Author Type: Registered Nurse Type: ED Notes Filed: 05/12/2022 7:59 PM Note Text: Patient presents with LUQ abdominal pain. 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 States she has had nausea/vomiting, denies diarrhea. Also has had some blood in her urine. VSS in triage. Normal [facility] Lipase SerPl-cCncon 05-12-20 22 Lipase [Catalytic activity/Vol] 24 U/L Normal 16-61 [facility] Comment on above: Order Comment: Speci men Type: BLOOD SPECIMEN Ordering Facility: [facility] Address: [address] [place] [phone] Performed By: #### 2 4323-8, 53265-9, 3039-3 #### [facility] CLIA [id number] [address] [place] [address] [place] Magnesium SerPl-mCncon 05-12 Magnesium [Mass/Vol] 1.9 mg/dL Normal 1.7-2.3 [facility] Comment on above: Order Comment: Speci men Type: BLOOD SPECIMEN Ordering Facility: [facility] Address: [address] Performed By: #### 2 4323-8, 42870-2, 3040-3 #### [facility] CLIA [id number] [address] [place], [place] [address] [place] [address] [place] Urinalysis complete panel (U )on 05-12-2022 Bacteria LM.HPF (Urine sed) [#/Area] Many Abnormal None Seen [facility] Comment on above: Order Comment: Speci men Type: URINE SPECIMEN Ordering Facility: [facility] Address: [address] [place] [address] Performed By: #### 2 4356-8 #### [facility] IA [id number] [address] [place] [id number] [place] [address] [place] Bilirubin Ql (U) Negative Normal Negative [facility] Comment on above: Order Comment: Speci men Type: URINE SPECIMEN Ordering Facility: [facility] Address: [address] [place], [place] [address] Performed By: #### 2 4356-8 #### [facility] IA [id number] [address] [place] [address] [place] Clarity (Unsp spec) Cloudy Abnormal Clear [facility] Comment on above: Order Comment: Speci men Type: URINE SPECIMEN Ordering Facility: [facility] Address: [address] Performed By: #### 2 4356-8 #### [facility] CLIA [id number] [address] [place] [address] [place] Color (U) Yellow Normal Yellow [facility] Comment on above: Order Comment: Speci men Type: URINE SPECIMEN Ordering Facility: [facility] Address: [facility] [address] Performed By: #### 2 4356-8 #### [facility] CLIA [id number] [place] Epithelial cells LM.HPF (Urine sed) [#/Area] Few Normal [facility] Comment on above: Order Comment: Speci men Type: URINE SPECIMEN Ordering Facility: [facility] Address: [address] [place], [place] [address] Performed By: #### 2 4356-8 #### [facility] IA [id number] [address] [place], [place] [id number] [place] [address] [place] Glucose Test strip (U) [Mass/Vol] Negative Normal Negative [facility] Comment on above: Order Comment: Speci men Type: URINE SPECIMEN Ordering Facility: [facility] Address: [address] [place] [address] Performed By: #### 2 4356-8 #### [facility] IA [id number] [address] [place] [address] [place] Hemoglobin Ql (U) Trace Abnormal Negative [facility]ital Comment on above: Order Comment: Speci men Type: URINE SPECIMEN Ordering Facility: [facility] Address: [address] [place], [place] [address] Performed By: #### 2 4356-8 #### [facility] IA [id number] [address] [place] [address] [place] Hyaline casts (Urine sed) [#/Area] /[LPF] Abnormal 0 /LPF [facility] Comment on above: Order Comment: Speci men Type: URINE SPECIMEN Ordering Facility: [facility] Address: [address] [place], [place] [phone] Performed By: #### 2 4356-8 #### [facility] IA [id number] [place] [address] [place] Ketones Ql (U) Trace Abnormal Negative [facility] Comment on above: Order Comment: Speci men Type: URINE SPECIMEN Ordering Facility: [facility] Address: [address] [place] [phone] Performed By: #### 2 4356-8 #### [facility] IA [id number] [place] [address] [place] Leukocyte esterase Test strip Ql (U) Negative Normal Negative [facility] Comment on above: Order Comment: Speci men Type: URINE SPECIMEN Ordering Facility: [facility] Address: [address] [place] [address] Performed By: #### 2 4356-8 #### [facility] IA [id number] [address] [place] [address] [place] Nitrite Ql (U) Negative Normal Negative [facility] Comment on above: Order Comment: Speci men Type: URINE SPECIMEN Ordering Facility: [facility] Address: [address] [place] [address] Performed By: #### 2 4356-8 #### [facility] IA [id number] [address] [place] [address] [place] pH (U) 5.5 [pH] Normal 5.0-8.0 [facility] Comment on above: Order Comment: Speci men Type: URINE SPECIMEN Ordering Facility: [facility] Address: [address] [place] [address] Performed By: #### 2 4356-8 #### [facility] IA [id number] [address] [place] [address] [place] Protein (U) [Mass/Vol] Negative Normal Negative [facility] Comment on above: Order Comment: Speci men Type: URINE SPECIMEN Ordering Facility: [facility] Address: [address] [place] [address] Performed By: #### 2 4356-8 #### [facility] IA [id number] [address] [place] [address] [place] RBC LM.HPF (Urine sed) [#/Area] 0-3 /HPF Normal 0-3 /HPF [facility] Comment on above: Order Comment: Speci men Type: URINE SPECIMEN Ordering Facility: [facility] Address: [address] [place] [address] Performed By: #### 2 4356-8 #### [facility] IA [id number] [address] [place] [address] Specific gravity (U) [Rel density] >=1.030 High 1.005-1.030 [facility] Comment on above: Order Comment: Speci men Type: URINE SPECIMEN Ordering Facility: [facility] Address: [address] [place] [address] Performed By: #### 2 4356-8 #### [facility] IA [id number] [address] [place] [address] Urobilinogen Ql (U) 1.0 EU/dL Normal 0.2-1.0 EU/dL [facility] Comment on above: Order Comment: Speci men Type: URINE SPECIMEN Ordering Facility: [facility] Address: [address] [place] [address] Performed By: #### 2 4356-8 #### [facility] [id number] [address] [place] [address] [place] WBC LM.HPF (Urine sed) [#/Area] 0-5 /HPF Normal 0-5 /HPF [facility] Comment on above: Order Comment: Speci men Type: URINE SPECIMEN Ordering Facility: [facility] Address: [address] [place] [address] Performed By: #### 2 4356-8 #### [facility] IA [id number] [address] [place] [address] [place] CBC with Diffon 05-11-2022 Abs. Basophil <0.03 Normal 0.00-0.20 [facility] Comment on above: Performed By: #### C DP, CP #### [facility] [address] [place] [address] Time Recorder: Daquan Barragan MD Abs.Imm.Granulocyte 0.03 k/uL Normal 0.00-0.30 [facility] Comment on above: Performed By: #### C DP, CP #### [facility] [address] [address] Time Recorder: Daquan Barragan MD Abs.Neutrophil (Seg) 7.20 k/uL Normal 1.50-8.10 [facility] Comment on above: Performed By: #### C DP, CP #### [address] [place], [place] [address] Time Recorder: Daquan Barragan MD Basophils/100 WBC (Bld) 0 % Normal 0-2 [facility] Comment on above: Performed By: #### C DP, CP #### [address] [place], [facility]83 Time Recorder: Daquan Barragan MD Eosinophils (Bld) [#/Vol] 0.10 10*3/uL Normal 0.00-0.44 [facility] Comment on above: Performed By: #### C DP, CP #### [address] [place], [facility]83 Time Recorder: Daquan Barragan MD Eosinophils/100 WBC (Bld) 1 % Normal 1-4 [facility] Comment on above: Performed By: #### C DP, CP #### [address] [place] [address] Time Recorder: Daquan Barragan MD Erythrocyte distribution width (RBC) [Ratio] 15.9 % High 11.8-14.4 [facility] Comment on above: Performed By: #### C DP, CP #### [address] [place], [facility]83 Time Recorder: Daquan Barragan MD Hematocrit (Bld) [Volume fraction] 43.2 % Normal 36.3-47.1 [facility] Comment on above: Performed By: #### C DP, CP #### [address] [place] [address] Time Recorder: Daquan Barragan MD Hemoglobin (Bld) [Mass/Vol] 13.3 g/dL Normal 11.9-15.1 [facility] Comment on above: Performed By: #### C DP, CP #### [facility] [address] [place] [address] Time Recorder: Daquan Barragan MD Immature granulocytes/100 WBC (Bld) 0 % Normal 0 [facility] Comment on above: Performed By: #### C DP, CP #### [facility] [address] [place], [facility]83 Time Recorder: Daquan Barragan MD Lymphocytes (Bld) [#/Vol] 3.94 10*3/uL High 1.10-3.70 [facility] Comment on above: Performed By: #### C DP, CP #### [address] [place], [facility]83 Time Recorder: Daquan Barragan MD Lymphocytes/100 WBC (Bld) 33 % Normal 24-43 [facility] Comment on above: Performed By: #### C DP, CP #### [address] [place] [address] Time Recorder: Daquan Barragan MD MCH (RBC) [Entitic mass] 23.8 pg Low 25.2-33.5 [facility] [facility] Comment on above: Performed By: #### C DP, CP #### [address] [place], [facility]83 Time Recorder: Daquan Barragan MD MCHC (RBC) [Mass/Vol] 30.8 g/dL Normal 28.4-34.8 [facility] [place] Comment on above: Performed By: #### C DP, CP #### [address] [place] [address] Time Recorder: Daquan Barragan MD MCV (RBC) [Entitic vol] 77.1 fL Low 82.6-102.9 [facility] Comment on above: Performed By: #### C DP, CP #### [facility] [address] [place], [place] [id number] Time Recorder: Daquan Barragan MD Monocytes (Bld) [#/Vol] 0.68 10*3/uL Normal 0.10-1.20 [facility] Comment on above: Performed By: #### C DP, CP #### [facility] [address] [place], [facility]83 Time Recorder: Daquan Barragan MD Monocytes/100 WBC (Bld) 6 % Normal 3-12 [facility] Comment on above: Performed By: #### C DP, CP #### [facility] [address] [place], [place] [address] Time Recorder: Daquan Barragan MD Neutrophil (Seg) 60 % Normal 36-[address] [facility] Comment on above: Performed By: #### C DP, CP #### [address] [place], [place] [address] Time Recorder: Daquan Barragan MD NRBC Automated 0.0 per 100 WBC Normal 0.0 [facility] Comment on above: Performed By: #### C DP, CP #### [address] [place], [facility]83 Time Recorder: Daquan Barragan MD Platelet mean volume (Bld) [Entitic vol] 8.3 fL Normal 8.1-13.5 [facility] Comment on above: Performed By: #### C DP, CP #### [facility] [address] [place], [facility]83 Time Recorder: Daquan Barragan MD Platelets (Bld) [#/Vol] 319 10*3/uL Normal 138-453 [facility] Comment on above: Performed By: #### C DP, CP #### [facility] [address] [place], [facility]83 Time Recorder: Daquan Barragan MD RBC (Bld) [#/Vol] 5.60 10*6/uL High 3.95-5.11 [facility] Comment on above: Performed By: #### C ABRAM, CP #### [facility] [address] [place] [address] Time Recorder: Daquan Barragan MD WBC (Bld) [#/Vol] 12.0 10*3/uL High 3.5-11.3 [facility] Comment on above: Performed By: #### C ABRAM, CP #### [facility] [address] [place] [address] Time Recorder: Daquan Barragan MD Comp Metabolic Profon 2021 (cont.) Normal [facility] Comment on above: Result Comment: Aver age GFR for 40-49 years old: 99 mL/min/1.73sq m Chronic Kidney Disease: <60 mL/min/1.73sq m Kidney failure: <15 mL/min/1.73sq m eGFR calculated using average adult body mass. Additional eGFR calculator available at: http://www.[employer]/multiple_crcl_2012.htm Performed By: #### C ABRAM, CP #### [address] [place] [address] Time Recorder: Daquan Barragan MD Albumin [Mass/Vol] 4.5 g/dL Normal 3.5-5.2 [facility] Comment on above: Performed By: #### C ABRAM, CP #### [facility] [address] [place] [address] Time Recorder: Daquan Barragan MD Albumin/Glob Ratio 1.3 Normal 1.0-2.5 [facility] Comment on above: Performed By: #### C ABRAM, CP #### [facility] [address] [place] [address] Time Recorder: Daquan Barragan MD Alkaline Phos 97 U/L Normal 35-104 [facility] Comment on above: Performed By: #### C DP, CP #### [facility] [address] [place], [place] [id number] Time Recorder: Daquan Barragan MD ALT [Catalytic activity/Vol] 27 U/L Normal 5-33 [facility] Comment on above: Performed By: #### C DP, CP #### [facility] [address] [place], [place] [id number] Time Recorder: Daquan Barragan MD Anion gap [Moles/Vol] 13 mmol/L Normal 9-17 [facility] [place] Comment on above: Performed By: #### C DP, CP #### [facility] [address] [place], [place] [id number] Time Recorder: Daquan Barragan MD AST [Catalytic activity/Vol] 15 U/L Normal <32 [facility] Comment on above: Performed By: #### C DP, CP #### [facility] [address] [place], [place] [id number] Time Recorder: Daquan Barragan MD Bilirubin [Mass/Vol] 0.26 mg/dL Low 0.3-1.2 [facility] Comment on above: Performed By: #### C DP, CP #### [facility] [address] [place], [place] [id number] Time Recorder: Daquan Barragan MD BUN/CRE Ratio 44 High 9-20 [facility] Comment on above: Performed By: #### C DP, CP #### [facility] [address] [place], [place] [id number] Time Recorder: Daquan Barragan MD Calcium [Mass/Vol] 9.6 mg/dL Normal 8.6-10.4 [facility] Comment on above: Performed By: #### C DP, CP #### [facility] [address] [place], [place] [id number] Time Recorder: Daquan Barragan MD Chloride [Moles/Vol] 97 mmol/L Low 98-107 [facility] Comment on above: Performed By: #### C DP, CP #### [facility] [address] [place], [place] [id number] Time Recorder: Daquan Barragan MD CO2 [Moles/Vol] 24 mmol/L Normal 20-31 [facility] Comment on above: Performed By: #### C DP, CP #### [facility] [address] [place], [place] [id number] Time Recorder: Daquan Barragan MD Creatinine [Mass/Vol] 0.50 mg/dL Normal 0.50-0.90 [facility] [place] Comment on above: Performed By: #### C DP, CP #### [facility] [address] [place], [place] [id number] Time Recorder: Daquan Barragan MD GFR, Amer >60 Normal >[address] [facility] Comment on above: Performed By: #### C DP, CP #### [facility] [address] [place], [place] [id number] Time Recorder: Daquan Barragan MD GFR,non Amer >60 Normal >60 [facility] Comment on above: Performed By: #### C DP, CP #### [facility] [address] [place], [place] [id number] Time Recorder: Daquan Barragan MD Glucose [Mass/Vol] 109 mg/dL High 70-99 [facility] Comment on above: Performed By: #### C DP, CP #### [facility] [address] [place], [place] [id number] Time Recorder: Daquan Barragan MD Potassium [Moles/Vol] 4.3 mmol/L Normal 3.7-5.3 [facility] [place] Comment on above: Performed By: #### C DP, CP #### [facility] [address] [place] [address] Dr. [place], [place] [id number] Time Recorder: Daquan Barragan MD Protein [Mass/Vol] 7.9 g/dL Normal 6.4-8.3 [facility] Comment on above: Performed By: #### C DP, CP #### [facility] [address] [place] [address] Dr. [place], [place] [id number] Time Recorder: Daquan Barragan MD Sodium [Moles/Vol] 134 mmol/L Low 135-144 [facility] Comment on above: Performed By: #### C DP, CP #### [address] [place], [place] [id number] Time Recorder: Daquan Barragan MD Staging: Normal [facility] Comment on above: Result Comment: Stag e 1: Some kidney damage normal GFR Stage 2: Mild kidney damage GFR 60-89 Stage 3: Moderate kidney damage GFR 30-59 Stage 4: Severe kidney damage GFR 15-29 Stage 5: Severe kidney damage GFR <15 ESRD - chronic treatment by dialysis or transplant Performed By: #### C ABRAM, CP #### [address] [place], [place] [id number] Time Recorder: Daquan Barragan MD Urea nitrogen [Mass/Vol] 22 mg/dL High 6-20 [facility] Comment on above: Performed By: #### C ABRAM, CP #### [address] [place], [facility]83 Time Recorder: Daquan Barragan MD Urinalysis, Routineon 2021 Bilirubin, SemiQt,Ur Negative Normal NEG [facility] Comment on above: Performed By: #### GEETA Plasencia #### [address] [place] [id number] Time Recorder: Daquan Barragan MD Blood, Urine 3+ Abnormal NEG [facility] Comment on above: Performed By: #### GEETA Plasencia #### [facility] [address] [place] [address] [place] [address] Time Recorder: Daquan Barragan MD Clarity (U) Clear Normal CLEAR [facility] Comment on above: Performed By: #### U A, UMICAO #### [facility] [address] [place] [address] Dr. [place], [place] [id number] Time Recorder: Daquan Barragan MD Color (U) Yellow Normal YEL [facility] Comment on above: Performed By: #### U A, UMICAO #### [facility] [address] [place] [address] [place] [address] Time Recorder: Daquan Barragan MD Glucose Ql (U) Negative Normal NEG [facility] Comment on above: Performed By: #### U A, UMICAO #### [address] [place], [place] [id number] Time Recorder: Daquan Barragan MD Ketones Ql (U) Negative Normal NEG [facility] Comment on above: Performed By: #### U A, UMICAO #### [address] [place] [address] Time Recorder: Daquan Barragan MD Leukocyte esterase Test strip Ql (U) Negative Normal NEG [facility] Comment on above: Performed By: #### U A, UMICAO #### [facility] [address] [place] [address] [place] [id number] Time Recorder: Daquan Barragan MD Nitrite,Ur Negative Normal NEG [facility] Comment on above: Performed By: #### U A, UMICAO #### [facility] [address] [place] [address] [place] [id number] Time Recorder: Daquan Barragan MD PH,Ur 5.5 Normal 5.0-9.0 [facility] Comment on above: Performed By: #### U A, UMICAO #### [facility] [address] [place] [address] [place], [place] [id number] Time Recorder: Daquan Barragan MD Protein Ql (U) Negative Normal NEG [facility] Comment on above: Performed By: #### U A, UMICAO #### [facility] [address] [place] [address] Dr. [place], [place] [id number] Time Recorder: Daquan Barragan MD Spec. Derby,Ur >1.030 High 1.010-1.020 [facility] Comment on above: Performed By: #### U A, UMICAO #### [facility] [address] [place] [address] Dr. [place], [place] [id number] Time Recorder: Daquan Barragan MD Urobilinogen,Ur Normal Normal NORM [facility] Comment on above: Performed By: #### U A, UMICAO #### [address] [place], [facility]83 Time Recorder: Daquan Barragan MD Urinalysis,Microon 2 Bacteria 3+ Abnormal NONE [facility] Comment on above: Performed By: #### U A, UMICAO #### [address] [place], [place] [address] Time Recorder: Daquan Barragan MD Epithelial cells LM Ql (Urine sed) 5 TO 10 Normal 0-25 [facility] Comment on above: Performed By: #### U A, UMICAO #### [facility] [address] [place] [address] Dr. [place], [facility]83 Time Recorder: Daquan Barragan MD Mucus Strands 2+ Abnormal NONE [facility] Comment on above: Performed By: #### U A, UMICAO #### [address] [place], [place] [id number] Time Recorder: Daquan Barragan MD Urine RBC's 5 TO 10 Normal 0-2 [facility] Comment on above: Performed By: #### U A, UMICAO #### [facility] [address] [place] [id number] Time Recorder: Daquan Barragan MD Urine WBC's 2 TO 5 Normal 0-5 [facility] Comment on above: Performed By: #### U GEETA Jones #### [facility] [address] [place] [id number] Time Recorder: Daquan Barragan MD MRI ABDOMEN W WO [...] Mitul Alonzo MD 03/23/19 Final result Normal [facility] MRI LUMBAR SPINE W WO CONTRA STon [...] M Buchanan MD 03/20/19 Final result Normal [facility] Vital Signs Date Time Vital Sign Value Performing Clinician Facility 01-16-2024 14:32-0400 Body height 175.26 cm [facility] 01-16-2024 14:32-0400 Body mass index (BMI) [Ratio] 73.2 kg/m2 [facility] 01-16-2024 14:32-0400 Body weight 224.98 kg [facility] 01-16-2024 14:32-0400 Diastolic blood pressure 70 mm[Hg] [facility] 01-16-2024 14:32-0400 Heart rate 76 /min [facility] 01-16-2024 14:32-0400 Systolic blood pressure 155 mm[Hg] [facility] 12-19-2023 13:56-0400 Body height 175.26 cm [facility] 12-19-2023 13:56-0400 Body mass index (BMI) [Ratio] 73.3 kg/m2 [facility] 12-19-2023 13:56-0400 Body weight 225.2 kg [facility] 12-19-2023 13:56-0400 Diastolic blood pressure 83 mm[Hg] [facility] 12-19-2023 13:56-0400 Heart rate 71 /min [facility] 12-19-2023 13:56-0400 Systolic blood pressure 147 mm[Hg] [facility] 05-02-2023 21:20-0400 Diastolic blood pressure 90 mm[Hg] Gabriel Cliftone [facility] 05-02-2023 21:20-0400 Heart rate 78 /min Gabriel Cliftone [facility] 05-02-2023 21:20-0400 Hourly Rounding Gabriel Cliftone [facility] 05-02-2023 21:20-0400 Promise to Return Gabriel Cliftone [facility] 05-02-2023 21:20-0400 Respiratory rate 16 /min Gabriel Cliftone [facility] 05-02-2023 21:20-0400 SaO2% (BldA) [Mass fraction] 99 % Gabriel Jasmin [facility] 05-02-2023 21:20-0400 Systolic blood pressure 160 mm[Hg] Gabriel Jasmin [facility] 05-02-2023 20:20-0400 Diastolic blood pressure 88 mm[Hg] Gabriel Jasmin [facility] 05-02-2023 20:20-0400 Heart rate 76 /min Gabriel Jasmin [facility] 05-02-2023 20:20-0400 Hourly Rounding Gabriel Jasmin [facility] 05-02-2023 20:20-0400 Mean blood pressure 111 mm[Hg] Gabriel Jasmin [facility] 05-02-2023 20:20-0400 Promise to Return Gabriel Jasmin [facility] 05-02-2023 20:20-0400 Respiratory rate 16 /min Gabriel Jasmin [facility] 05-02-2023 20:20-0400 SaO2% (BldA) [Mass fraction] 98 % Gabriel Jasmin [facility] 05-02-2023 20:20-0400 Systolic blood pressure 158 mm[Hg] Gabriel Jasmin [facility] 05-02-2023 19:20-0400 Diastolic blood pressure 90 mm[Hg] Gabriel Jasmin [facility] 05-02-2023 19:20-0400 Heart rate 78 /min Gabriel Jasmin [facility] 05-02-2023 19:20-0400 Hourly Rounding Gabriel Jasmin [facility] 05-02-2023 19:20-0400 Promise to Return Gabriel Jasmin [facility] 08-14-2023 19:20-0400 Respiratory rate 16 /min Gabriel Fournier [facility] 05-02-2023 19:20-0400 SaO2% (BldA) [Mass fraction] 98 % Gabriel Fournier [facility] 05-02-2023 19:20-0400 Systolic blood pressure 161 mm[Hg] Gabriel Fournier [facility] 05-02-2023 17:24-0400 Body temperature 98.06 [degF] Gabriel Fournier [facility] 05-02-2023 14:30-0400 Body height 175.26 cm Adiel Lux Other [email or web address] Other 05-02-2023 14:30-0400 Body mass index (BMI) [Ratio] 68.81 kg/m2 Adiel Lux Other [email or web address] Other 05-02-2023 14:30-0400 Body weight 211.38 kg Adiel Lux Other [email or web address] Other 05-02-2023 14:30-0400 Diastolic blood pressure 65 mm[Hg] Adiel Lux Other [email or web address] Other 05-02-2023 14:30-0400 Systolic blood pressure 169 mm[Hg] Adiel Lux Other [email or web address] Other 02-22-2023 15:00-0400 Body height 175.26 cm Adiel Lux Other [email or web address] Other 02-22-2023 15:00-0400 Body mass index (BMI) [Ratio] 68.81 kg/m2 Adiel Lux Other [email or web address] Other 02-22-2023 15:00-0400 Body weight 211.38 kg Adiel Lux Other [email or web address] Other 02-22-2023 15:00-0400 Diastolic blood pressure 74 mm[Hg] Adiel Lux Other [email or web address] Other 02-22-2023 15:00-0400 Systolic blood pressure 141 mm[Hg] Adiel Lux Other [email or web address] Other 11-29-2022 14:30-0400 Body height 175.26 cm Adiel Lux Other [email or web address] Other 11-29-2022 14:30-0400 Body mass index (BMI) [Ratio] 67.04 kg/m2 Adiel Lux Other [email or web address] Other 11-29-2022 14:30-0400 Body weight 205.93 kg Adiel Lux Other [email or web address] Other 11-29-2022 14:30-0400 Diastolic blood pressure 86 mm[Hg] Adiel Lux Other [email or web address] Other 11-29-2022 14:30-0400 SaO2% (BldA) [Mass fraction] 98 % Adiel Lux Other [email or web address] Other 11-29-2022 14:30-0400 Systolic blood pressure 142 mm[Hg] Adiel Lux Other [email or web address] Other Encounters Encounter Date Encounter Type Care Provider Facility Start: 01-16-2024 End: 01-16-2024 ambulatory [facility] Work Phone: Start: 01-16-2024 End: 01-16-2024 Patient encounter procedure [facility] Work Phone: Start: 01-11-2024 End: 01-11-2024 ambulatory [facility] Start: 12-19-2023 End: 12-19-2023 ambulatory [facility] Work Phone: Start: 12-19-2023 End: 12-19-2023 Patient encounter procedure [facility] Physician [facility] Work Phone: Start: 11-28-2023 Non-patient / Non-visit [facility]ician [facility] Work Phone: Start: 11-16-2023 Non-patient / Non-visit [facility] Physician [facility] Work Phone: Start: 10-31-2023 End: 10-31-2023 ambulatory Adiel Lux Other [email or web address] Other Start: 10-31-2023 Telephone encounter Adiel Maci [facility] Start: 10-03-2023 End: 10-03-2023 ambulatory Adiel Lux Other [email or web address] Other Start: 10-03-2023 Telephone encounter Adiel Maci [facility] Start: 09-23-2023 End: 09-23-2023 ambulatory Adiel Maci Other [email or web address] Other Start: 09-23-2023 Telephone encounter Adiel Maci [facility] Start: 09-21-2023 End: 09-21-2023 ambulatory Adiel Maci Other [email or web address] Other Start: 09-21-2023 Telephone encounter Adiel Lux [facility] Start: 09-08-2023 End: 09-08-2023 ambulatory Adiel Maci Other [email or web address] Other Start: 09-08-2023 Telephone encounter Adiel Maci [facility] Start: 08-24-2023 End: 08-24-2023 ambulatory Adiel Lux Other [email or web address] Other Start: 08-24-2023 Telephone encounter Adiel Lux [facility] Start: 08-23-2023 End: 08-23-2023 ambulatory Adiel Lux Other [email or web address] Other Start: 08-23-2023 Telephone encounter Adiel Lux [facility] Start: 08-03-2023 End: 08-03-2023 ambulatory Adiel Lux Other [email or web address] Other Start: 08-03-2023 Telephone encounter Adiel Lux [facility] Start: 08-02-2023 End: 08-02-2023 ambulatory Adiel Lux Other [email or web address] Other Start: 08-02-2023 Telephone encounter Adiel Lux [facility] Start: 07-29-2023 End: 07-29-2023 ambulatory Adiel Lux Other [email or web address] Other Start: 07-29-2023 Telephone encounter Adiel Lux [facility] Start: 07-05-2023 End: 07-05-2023 ambulatory Adiel Lux Other [email or web address] Other Start: 07-05-2023 Telephone encounter Adiel Lux [facility] Start: 06-29-2023 End: 06-29-2023 ambulatory Adiel Lux Other [email or web address] Other Start: 06-29-2023 Telephone encounter Adiel Lux [facility] Start: 06-23-2023 End: 06-24-2023 [facility]ulatory [facility] Start: 06-15-2023 End: 06-15-2023 ambulatory Adiel Lux Other [email or web address] Other Start: 06-15-2023 Telephone encounter Adiel Lux [facility] Start: 06-07-2023 End: 06-07-2023 ambulatory Adiel Maci Other [email or web address] Other Start: 06-07-2023 Telephone encounter Adiel Maci [facility] Start: 05-31-2023 End: 05-31-2023 ambulatory Adiel Maci Other [email or web address] Other Start: 05-31-2023 Telephone encounter Adiel Maci [facility] Start: 05-13-2023 End: 05-13-2023 ambulatory Adiel Maci Other [email or web address] Other Start: 05-13-2023 Telephone encounter Adiel Lux [facility] [employer] Start: 05-09-2023 End: 05-09-2023 ambulatory Adiel Lux Other [email or web address] Other Start: 05-09-2023 Telephone encounter Adiel Lux [facility] Start: 05-06-2023 End: 05-06-2023 ambulatory Adiel Maci Other [email or web address] Other Start: 05-06-2023 Telephone encounter Adiel Maci [facility] Start: 05-04-2023 ambulatory Gabriel Fournier Facility:[facility] Start: 05-02-2023 End: 05-02-2023 Emergency department patient visit Gabriel Jasmin Facility:[facility] Start: 05-02-2023 End: 05-02-2023 Emergency department patient visit Gabriel Fournier [facility] Start: 05-02-2023 End: 05-02-2023 ambulatory Adiel Maci Other [email or web address] Other Start: 05-02-2023 Office outpatient vi sit 25 minutes Adiel Lux [facility] Start: 05-02-2023 Telephone encounter Adiel Lux [facility] Start: 04-21-2023 End: 04-21-2023 ambulatory Jeyson Alcantar Other [email or web address] Other Start: 04-21-2023 Telephone encounter Jeyson Alcantar [facility] Start: 04-07-2023 End: 04-07-2023 ambulatory Adiel Lux Other [email or web address] Other Start: 04-07-2023 Telephone encounter Adiel Lux [facility] Start: 03-30-2023 End: 03-30-2023 ambulatory Adiel Lux Other [email or web address] Other Start: 03-30-2023 Telephone encounter Adiel Lux [employer] Start: 03-28-2023 End: 03-28-2023 ambulatory Adiel Lux Other [email or web address] Other Start: 03-28-2023 Telephone encounter Adiel Lux [facility] Start: 03-21-2023 End: 03-21-2023 ambulatory Adiel Lux Other [email or web address] Other Start: 03-21-2023 Telephone encounter Adiel Lux [facility] Start: 02-22-2023 End: 02-22-2023 ambulatory Adiel Lux Other [email or web address] Other Start: 02-22-2023 Office outpatient vi sit 25 minutes Adiel Lux [facility] Start: 02-22-2023 Telephone encounter Adiel Lux [facility] Start: 02-07-2023 End: 02-07-2023 ambulatory Adiel Lux Other [email or web address] Other Start: 02-07-2023 Telephone encounter Adiel Lux [facility] Start: 01-26-2023 End: 01-26-2023 ambulatory Adiel Lux Other [email or web address] Other Start: 01-26-2023 Telephone encounter Adiel Lux [facility] Start: 01-11-2023 End: 01-11-2023 ambulatory Adiel Lux Other [email or web address] Other Start: 01-11-2023 Telephone encounter Adiel Lux [facility] Start: 01-10-2023 End: 01-10-2023 ambulatory Adiel Lux Other [email or web address] Other Start: 01-10-2023 Telephone encounter Adiel Lux [facility] Start: 01-03-2023 End: 01-03-2023 ambulatory Adiel Lux Other [email or web address] Other Start: 01-03-2023 Telephone encounter Adiel Lux [facility] Start: 12-29-2022 End: 12-29-2022 ambulatory Adiel Lux Other [email or web address] Other Start: 12-29-2022 Telephone encounter Adiel Lux [facility] Start: 12-17-2022 End: 12-17-2022 ambulatory FARHAT JORDAN Facility:[facility] Start: 12-17-2022 End: 12-17-2022 ambulatory Farhat Jordan ALVAREZ Work Phone: [facility] Comment on above: Cervical spondylosis with myelopathy (Primary Dx); Chronic bilateral low back pain without sciatica; S/P lumbar fusion Start: 12-17-2022 End: 12-17-2022 Telemedicine consultation with patient Farhat Jordan ALVAREZ Work Phone: [facility] Start: 12-10-2022 End: 12-10-2022 ambulatory Adiel Lux Other [email or web address] Other Start: 12-10-2022 Telephone encounter Adiel Lux [facility] Start: 12-09-2022 End: 12-09-2022 ambulatory Adiel Lux Other [email or web address] Other Start: 12-09-2022 Telephone encounter Adiel Lux [facility] Start: 12-08-2022 End: 12-08-2022 ambulatory Adiel Lux Other [email or web address] Other Start: 12-08-2022 Telephone encounter Adiel Lux [facility] Start: 12-02-2022 End: 12-02-2022 ambulatory Adiel Lux Other [email or web address] Other Start: 12-02-2022 Telephone encounter Adiel Lux [facility] Start: 11-29-2022 End: 11-29-2022 ambulatory Adiel Lux Other [email or web address] Other Start: 11-29-2022 Encounter for genera l adult medical examination without abnormal findings Adiel Lux [facility] Start: 11-29-2022 Periodic preventive med est patient 40-64yrs Adiel Lux [facility] Start: 11-15-2022 End: 11-15-2022 ambulatory Adiel Lux Other [email or web address] Other Start: 11-15-2022 Telephone encounter Aidel Lux [facility] Start: 09-15-2022 End: 09-15-[address] ADIEL LUX Facility:[facility] Start: 09-14-2022 Adult health examination Nima Alcantar Other [email or web address] Other Start: 09-14-2022 Problem, abnormal examination Jeyson Alcantar Other [email or web address] Other Start: 05-12-2022 Telephone encounter Allyson Victor RN Work Phone: General Surgery Comment on above: Appointment Start: 05-11-2022 ambulatory Physician Unlisted Faci lity:[facility] Start: 05-11-2022 End: 05-11-2022 Emergency department [facility] Start: 02-12-[address] ADIEL LUX Facil ity:[facility] Start: 03-19-2019 End: 03-22-2019 Patient encounter procedure ADIEL LUX [facility] Start: 11-02-2017 End: 11-03-2017 Patient encounter procedure PROVIDER UNKNOWN Facility:[facility] Procedures Date Procedure Procedure Detail Performing Clinician Start: 03-19-2019 Mri spinal canal lum bar w/o & w/contr matrl VANE QUINONEZ Start: 03-19-2019 Mri abdomen w/o & w/contrast material VANE QUINONEZ Start: 03-27-2018 Screening mammography B grace Alcantar Other Start: 05-28-2016 History of lumbar fusion Gabriel Fournier Start: 05-25-2016 General examination of patient Jeyson Alcantar Other Appendectomy Gabriel Fournier Cholecystectomy Gabriel Fournier Olvin filter, d evice (physical object) Gabriel Fournier History of [...] Author Start: 05-12-2025 DIABETES SCREEN DIABETES SCREEN [facility] Start: 12-19-2023 Patient referral [facility] Work Phone: Start: 05-20-2022 Influenza vaccination INFLUENZA (#1) [facility] Start: 2021 COLOGUARD (FIT-DNA) COLOGUARD (FIT-DNA) [facility] Start: 2021 Colonoscopy COLONOSCOPY [facility] Start: 2021 COLORECTAL CANCER SCREENING COLORECTAL CANCER SCREENING [facility] Start: [address] COLONOGRAPHY [facility] Start: 2021 DIABETES SCREEN DIABETES SCREEN [facility] Start: 2021 FECAL OCCULT BLOOD FECAL OCCULT BLOOD [facility] Start: 2021 LIPID SCREEN LIPID SCREEN [facility] Start: 2021 SIGMOIDOSCOPY SIGMOIDOSCOPY [facility] Start: 01-31-2021 COVID-19 VACCINE (3 - Booster for Pfizer series) COVID-19 VACCINE (3 - Booster for Pfizer series) [facility] Start: 2016 Mammography MAMMOGRAM [facility] Start: 2006 HPV TESTING HPV TESTING [facility] Start: 1997 PAP TESTING PAP TESTING [facility] Start: 1995 Urine microalbumin profile DTAP,TDAP,TD (1 - Tdap) [facility] Start: 1994 HEPATITIS C SCREENING HEPATITIS C SCREENING [facility] Start: 1994 HIV SCREENING HIV SCREENING [facility] Start: 1988 Adult depression screening assessment DEPRESSION SCREENING [facility] Start: 1982 PNEUMOCOCCAL (1 - PCV) PNEUMOCOCCAL (1 - PCV) [facility] Start: 04-29-1977 COVID-19 VACCINE (#1) COVID-19 VACCINE (#1) [facility] Start: 1976 HEPATITIS B (1 of 3 - 3-dose series) HEPATITIS B (1 of 3 - 3-dose series) [facility] Patient referral [facility] Work Phone: XR Lumbar spine 2 or 3 Views [facility] Immunizations Immunization Date Immunization Notes Care Provider Fa cility 12-06-2020 COVID-19 Vaccine Pfi zer - Documentation Purposes Only Jeyson Alcantar Other [facility] 11-15-2020 COVID-19 Vaccine Pfi zer - Documentation Purposes Only Jeyson Alcantar Other [facility] 07-17-2020 influenza virus vaccine, split virus (incl. purified surface antigen) Jeyson Alcantar Other [email or web address] Other 07-17-2020 influenza virus vaccine, unspecified formulation [facility] 07-17-2020 pneumococcal polysaccharide vaccine, 23 valent Jeyson Alcantar Other [facility] 11-26-2019 influenza virus vaccine, split virus (incl. purified surface antigen) Jeyson Ortiz Other [email or web address] Other 11-26-2019 influenza virus vaccine, unspecified formulation [facility] Payers Date Payer Category Payer Unknown 2014 Medicaid [id number] 1976 Unknown [id number] 2.16.8 [id number] 1976 Unknown [id number] 2.16.8 [id number] 1976 Unknown [id number] 2.16.8 [id number] 1976 Unknown [id number] 2.16.8 [id number] 1976 Unknown [id number] 2.16. [id number] 1976 Unknown [id number] 2.16.84 [id number] 1976 Unknown [id number] 2.16.84 [id number] 1976 Unknown [id number] 2.16.8 [id number] 1976 Unknown [id number] 2.16.8 [id number] 1976 Unknown [id number] 2.16.8 [id number] 1976 Unknown [id number] 2.16.8 [id number] 1959 Self-pay [id number] 1959 Unknown [id number] Self-pay Self Pay [id number] Social History Date Type Detail Facility Start: 03-03-[facility] History of tobacco use Cigarette Smoker [facility] Start: 03-03-2016 Cigarettes smoked current (pack per day) - Reported 0.5 [facility] Start: 03-03-2016 End: 05-12-2022 Alcohol intake Not Asked [facility] Start: 1975 Sex Assigned At Not on file [facility] Start: 05-01-2022 End: 05-11-2022 Exposure to SARS-CoV-2 (event) Not sure [facility] Sex Assigned At [facility] Tobacco [facility] Comment on above: quit Tobacco smoking status No Smokin g Status Entered [facility] Start: 01-30-2018 Tobacco smoking stat [facility] Smoker (finding) [facility] Start: 1975 Sex Assigned At Female F [facility] Functional Status Date Assessment Result Facility 05-02-2023 Functional Status N/A [facility] Clinical Notes 05-12-2022 to 12-19-2023 Note Date & Type Note Facility 12-19-2023 Hospital Discharg e instructions Ambulatory OrdersReferral to Pain Management Time Frame: 12/19/23, Location: None Selected [facility] Work Phone: 10-31-2023 Evaluation note Encounter Date Diagnosis Assessment Notes Oct, Lumbosacral spondylosis (ICD-10 - M47.817) [facility] [employer] Other 01-15-2024 Evaluation note* Encounter Date Diagnosis Assessment Notes Treatment Notes Treatment Clinical Notes Sep, Lumbosacral spondylosis (ICD-10 - M47.817) [email or web address] Other 01-05-2024 Evaluation note* Encounter Date Diagnosis Assessment Notes Treatment Notes Treatment Clinical Notes Sep, Lumbosacral spondylosis (ICD-10 - M47.817) [facility] Other 10-05-2023 NoteRadiology Colonoscopy, Adult A colonoscopy is a procedure [...] including vitamins, herbs, eye drops, creams, and mhuz-pbo-seszdng medicines. ? Any problems you or family [...] provider about eating or drinking restrictions, which mayinclude: ? A few days before the procedure: [...] tells you to take them. ? Taking xxhm-pze-cakldim medicines, vitamins, herbs, and supplements. General instructions [...] checked for cancer cells. (more content not included)...[facility]08-18-2023 Evaluation note* Encounter Date Diagnosis Assessment Notes Treatment Notes Treatment Clinical Notes Apr, Lumbosacral spondylosis (ICD-10 - M47.817) [email or web address] Other 08-14-2023 Hospital Discharge instructions Patient Education 05/02/2023 21:28:45 Abdominal Pain, Adult, Xzkt-cg-Ceqn Abdominal Pain, Adult Many things can cause belly (abdominal) pain. Most times, belly pain is not dangerous. Many cases of belly pain can be watched and treated at home. Sometimes, though, belly pain is serious. Your doctor will try to find the cause of your belly pain. Follow these instructions at home: Medicines Take ilbx-mae-gxhrtal and prescription medicines only as told by [...] your belly pain for any changes. Take qaia-cfl-zunlcub and prescription medicines only as told by [...] provider. Document Revised: 01/14/2020 Document Reviewed: 01/14/2020 [employer] Patient Education 2022 [employer]. Follow Up Care 05/02/2023 17:14:10 With:Celso ASTUDILLO Address: [address] [place] [address]. [facility] [address] [place] [address] Business (1) When:05/05/2023 20:39:25 With:ADIEL LUX Address: [address] [place], [place] [id number] Business (1) When:05/05/2023 20:39:14 Comments:Follow-up with your primary care provider in 3 to 5 days. If symptoms worsen, do not improve, or new symptoms arise please report back to emergency department for further evaluation. [facility]08-14-2023 Evaluation note* Encounter Date Diagnosis Assessment Notes Treatment Notes Treatment Clinical Notes Apr, Lumbosacral spondylosis (ICD-10 - M47.817) [email or web address] Other 08-14-2023 Evaluation note* Encounter Date Diagnosis Assessment Notes Treatment Notes Treatment Clinical Notes Apr, Left-sided chest pain (ICD-10 - R07.9) Discussed ER v. outpatient testing. She does not want to go to ER. Tests ordered, but she understands to go to ER if symptoms worsen. Apr, LUQ abdominal pain (ICD-10 - R10.12) CT order sent to [place]. It will need to be cleared w her insurance. Pt understands this could take several days. ER if symptoms worsen. [email or web address] Other 08-03-2023 Evaluation note* Encounter Date Diagnosis Assessment Notes Treatment Notes Treatment Clinical Notes Apr, Lumbosacral spondylosis (ICD-10 - M47.817) [email or web address] Other 07-10-2023 Evaluation note* Encounter Date Diagnosis Assessment Notes Treatment Notes Treatment Clinical Notes Mar, Lumbosacral spondylosis (ICD-10 - M47.817) [email or web address] Other 06-06-2023 Evaluation note* Encounter Date Diagnosis [...] (ICD-10 - F41.8) stable - as above. [email or web address] Other 05-10-2023 Evaluation note* Encounter Date Diagnosis Assessment Notes Treatment Notes Treatment Clinical Notes January, Lumbosacral spondylosis (ICD-10 - M47.817) [email or web address] Other 04-12-2023 Evaluation note* Encounter Date Diagnosis Assessment Notes Treatment Notes Treatment Clinical Notes Dec, Lumbosacral spondylosis (ICD-10 - M47.817) [email or web address] Other 03-31-2023 NoteHNO ID: [id number] Author: Farhat Jordan PA-C Service: ? Author Type: Physician Horse Race Starter Type: Progress Notes Filed: 12/17/2022 11:53 AM Note Text: SPINE OUTPATIENT CONSULT This is a virtual visit using [employer] video visit. It required patient-provider interaction for the medical decision making as documented below. I have communicated my name and active licensure. The patient's identity and physical location were verified at the time of this visit. Either the patient or their legal account manager sales representative has been informed of the risks and benefits of -- and alternatives to -- treatment through a remote evaluation and consents to proceed with the evaluation remotely. SERVICE DATE: 12/17/2022 PCP: Adiel Lux MD REFERRING PROVIDER: Adiel Lux ([facility]) [address] [facility] [address] Consult requested for an opinion regarding the [...] of lumbar fusion 5 years ago at [facility]. Did well after surgery but the pain [...] #1: Lumbar fusion 5 years ago in [place] ACTIVE PROBLEM LIST Piriformis Syndrome Morbid Obesity [...] back/neck pain: Does not (more content not included)...[facility] [id number] History of Present illness Narrative* Farhat Jordan PA-C - 12/17/2022 11:23 AM EDT Images from the original note were not included. SPINE OUTPATIENT CONSULT This is a virtual visit using [employer] video visit. It required patient-provider interaction for themedical decision making as documented below. I have communicated my name and active licensure. The patient's identity and physical location wereverified at the time of this visit. Either the patient or their legal account manager sales representative has been informed of the risks and benefits of -- and alternatives to -- treatment through a remote evaluation andconsents to proceed with the evaluation remotely. SERVICE DATE: 12/17/2022 PCP: Adiel Lux MD REFERRING PROVIDER: Adiel Lux ([facility]) [address] [facility] [address] Consult requested for an opinion regarding the [...] of lumbar fusion 5 years ago at [facility]. Did well after surgery but the pain [...] #1: Lumbar fusion 5 years ago in [place] ACTIVE PROBLEM LIST Piriformis Syndrome Morbid Obesity [...] SIGNATURE: Farhat Jordan PA-C PATIENT NAME: Tabby aJy DATE: December 17, 2022 TIME: 11:23 AM PAGER: documented in [facility] encounter[facility] note* Encounter Date Diagnosis Assessment Notes Treatment Notes Treatment Clinical Notes Nov, Anxiety disorder, unspecified (ICD-10 - F41.9) Nov, Depression, unspecified (ICD-10 - F32.A) Nov, Adult ADHD (ICD-10 - F90.9) [email or web address] Other 03-16-2023 Evaluation note* Encounter Date Diagnosis Assessment Notes Treatment Notes Treatment Clinical Notes Nov, Degenerative lumbar disc (ICD-10 - M51.36) Nov, Tinnitus, unspecified laterality (ICD-10 - H93.19) [email or web address] Other 03-13-2023 Evaluation note* Encounter Date Diagnosis [...] surgery on R ear in the past. [email or web address] Other 08-25-2022 NoteHNO ID: [id number] Author: RT Alan(R) Service: ? 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 Cardoso. Patient stated tearfully I'm in so much pain Alyse can't get a CT scan done anywhere because of my weight. I went to [place] yesterday and they couldn't do it so now I'm waiting for my to come home to take me somewhere else Patient describes abdominal pain as sharp and constant 10/10 encompassing entire abdomen with left side most severe.After placing patient on hold, called [facility] to confirm [address] Informed patient and advised to go to [facility] ED for eval. Instructed to call back with update so as to confirm need for OV with Dr. Cardoso. Patient verbalized understanding and appreciation for assistance. Contac t info provided. documented in this encounterUniversity Hospitals Samaritan Medical CenterEvaluation + Plan note No data available for this section [facility] [employer] Other Evaluation note* Diagnosis Cervical spondylosis with myelopathy- Primary Chronic bilateral low back pain without sciatica S/P lumbar fusion Arthrodesis status documented in this encounter [facility]* Diagnosis Onset Date Resolution Status Chronic back pain acute Degenerative lumbar disc acu te Failed back syndrome acute Polydipsia acute [facility] Work Phone: Evaluation note* Diagnosis Onset Date Resolution Status Adult ADHD (attention deficit hyperactivity disorder) acute Anxiety, generalized acute Chronic back pain acute Degenerative lumbar disc acu te Essential hypertension acute Failed back syndrome acute Polydipsia acute [facility] Work Phone: History general Narrative - Reported* Type Description Date [...] EAR SURGERY 1996 Hospitalization History SEE ABOVE [email or web address] Other Progress note No data available for this section [facility] Summary Purpose Family History Relationship Condition Age at Onset Recorded Date/T erich father Family history unknown Unknown family member Unknown Advance Directives Advance Directive Response Recorded Date/ Time Advance Directives Yes January 30 8 1:36pm Reason for Referral Reason CLOSED-DUPLICATE S ee phone note. [facility] will not see her. Depression, anxiety, ADD. Thank you Diagnosis 1 Anxiety disorder, un specified (F41.9) Referral Organization [facility] [employer] Referring Provider First Name Adiel Referring Provider Last Name Maci Referring Provider Specialty [facility] Number 1 Products and Services Referred Organization [facility] [place] Referred Address [address] Referred Provider Specialty Psychiatry Referral Priority Routine General Notes Heide Chua 02:06:27 PM >another referral is already open for [facility] in [place]. Closing this referral out Reason *12/16 Lumbar p ain Diagnosis 1 Degenerative lumbar disc (M51.36) Referral Organization [facility] [employer] Referring Provider First Name Adiel Referring Provider Last Name Maci Referring Provider Specialty [facility] Number 1 Products and Services Referred Organization [facility] Referred Address [address] [place],[address] Referred Provider Specialty Neurosurgery Referral Priority Routine General Notes Heide Chua 02:18:24 PM >received today, attachmetns made, notes locked, referral form filled out. referral faxed Reason CLOSED-Duplicate P revious referral. Diagnosis 1 Tinnitus, unspecifie d laterality (H93.19) Referral Organization [facility] [employer] Referring Provider First Name Adiel Referring Provider Last Name Maci Referring Provider Specialty [facility] Number 1 Products and Services Referred Organization Unknown Facility Referred Provider Specialty Ear, Nose an d Throat Referral Priority Routine General Notes Heide Chua 02:10:07 PM >[facility] Closing this referral Reason CLOSED Had MRIs in the past and surgery. Will scan in from old charts. Diagnosis 1 Lumbosacral spondylo sis (M47.817) Referral Organization [facility] [employer] Referring Provider First Name Adiel Referring Provider Last Name Maci Referring Provider Specialty [facility] Number 1 Products [employer] Services Referred Organization Unknown Facility Referred Provider Adore [...] Diagnosis 1 Anxiety, generalized (F41.1) Referral Organization [facility] Referring Provider First Name Adiel Referring Provider Last Name Maci Referring Provider Specialty [facility] [employer] [facility] [place] Referred Address [address],[facility],[place],[address] Referred Provider Specialty Psychiatry Referral Priority Routine General Notes PiyushHeide feliciano 01:21:48 PM >RECEIVED TODAY, RECEIVED FAXED NUMBER, NOTES LOCKED, REFERRAL FAXED Heide Chua 12/07/2022 08:41:27 AM >FAXED FIRST ATTEMPT LETTER Heide Chua 12/08/2022 09:51:24 AM >RECEIVED FAX THAT PT WAS DENIED, NEEDS HIGHER LEVEL OF CARE. WILL CALL PATIENT Harshil Heide 12/08/2022 03:55:46 PM >WILL SEND TO [facility] IN [place] Heide Chua 12/08/2022 03:56:16 PM >REFERRAL FAXED Clinical Notes P:[id number] F: [id number] Reason *12/15 CALL R T M abnormal and vertigo Diagnosis 1 Aural vertigo, right ear (H81.311) Referral Organization [facility] Referring Provider First Name Adiel Referring Provider Last Name Maci Referring Provider Specialty [facility] [employer] Referred Organization [facility] Referred Provider Lilian Jaimes Referred Address ,[place], [place] Referred Provider Specialty Otolaryngolo gy Referral Priority Routine General Notes Heide Chua 02:22:19 PM >RECEIVED TODAY, Heide Chua 11/30/2022 02:26:05 PM >NOTES LOCKED, INS CARD [...] WILL FOLLOW UP AGIAN IN ONE WEEK Chief Complaint and Reason for Visit Chief Complaint Amb Documentation Amb Documentation medication check Reason for Visit Chronic back pain Degenerative lumbar disc Failed back syndrome Polydipsia Chief Complaint Amb Documentation Amb Documentation medication check Med check Reason for Visit Adult ADHD (attentio n deficit hyperactivity disorder) Anxiety, generalized Chronic back pain Degenerative lumbar disc Essential hypertension Failed back syndrome Polydipsia Additional Source Comments INFORMATION SOURCE (unrecogn ized section and content) DATE CREATED AUTHOR [facility]24/2019 [facility] DATE CREATED AUTHOR AUTHOR'S ORGANIZ ATION 06/25/2019 [facility] DATE CREATED AUTHOR AUTHOR'S ORGANIZ ATION 05/14/2022 [facility] DATE CREATED AUTHOR AUTHOR'S ORGANIZ ATION 05/14/2022 [facility] DATE CREATED AUTHOR AUTHOR'S ORGANIZ ATION 05/15/2022 [facility] DATE CREATED AUTHOR AUTHOR'S ORGANIZ ATION 09/17/2022 [facility] DATE CREATED AUTHOR AUTHOR'S ORGANIZ ATION 12/22/2022 [facility] DATE CREATED AUTHOR AUTHOR'S ORGANIZ ATION 06/26/2023 [facility] DATE CREATED AUTHOR AUTHOR'S ORGANIZ ATION 01/13/2024 [facility] Source Comments (unrecognize d section and content) In the event this informatio n is protected by the Federal Confidentiality of Alcohol and Drug Abuse Patient Records regulations: The Federal rules restrict any use of the information to criminally investigate or prosecute any alcohol or drug abuse patient.[facility] CenterIn the event this information is protected by the Federal Confidentiality of Alcohol and Drug Abuse Patient Records regulations: The Federal rules restrict any use of the information to criminally investigate or prosecute any alcohol or drug abuse patient.[facility] Reason for Visit (unrecogniz ed section and content) Reason Comments Appointment Reason Comments New Patient Evaluation Care Teams (unrecognized sec tion and content) Traffic [employer] Computer Relationship Specialty Start Date End Date Adiel Lux MD [address] [place] [place] [address] PCP - General Family Practice 08/19/16 Adiel Lux MD [address] [place] [address] Referring Family Practice 02/27/22 [employer] Relationship Specialty Start Date End Date Adiel Lux MD [address] [place] [address] PCP - General Family Medicine 08/19/16 Adiel Lux MD [address] [place] [address] Referring Family Medicine 02/27/22 Adiel Lux MD [address] [place] [address] Referring Family Medicine 12/10/22 Team Status: Active Member Role Status Dates Adiel Lux MD Primary Care Provider Active Team Status: Active Member Role Status Dates Adiel Lux MD Primary Care Provider Active Start: November 16, 2023 NOEMY Sullivan Attending Provider Active Start : November 16, 2023 Team Status: Active Member Role Status Dates Adiel Lux MD Primary Care Provider Active Start: November 28, 2023 Jenn Alonzo Attending Provider Active Start: [facility] 2023 Team Status: Inactive Member Role Status Dates Adiel Lux MD Primary Care Provide r, Attending Provider Active Start: December 19, 2023 End: December 19, 2023 Team Status: Inactive Member Role Status Dates Adiel Lux MD Primary Care Provide r, Attending Provider Active Start: January 16, 2024 End: January 16, 2024 Goals (unrecognized section and content) Goals may be documented in a n alternate section FOR RECORDS PERTAINING TO PATIENTS WHO ARE [...] BE BASED ON THE PRIMARY CLINICAL RECORDS. [facility] [employer] [facility]. provides no warranty or guarantee of the accuracy or completeness of information in this document.
[2024-04-04 19:27] VITALS: PULSE 65; TEMP 36.6; O2SAT 97; BMI 66.5
--- NOTE | 2024-04-04 19:37 | XR_ITS ---
The [address] [address] Patient Name: FERN JAY MRN: [id number] date: 1975 Sex: F Assigned Patient Location: ER Current Patient Location: ER Accession/Order Number: [id number] Exam Date: 04/04/2024 19:45 Report Date: 04/04/2024 20:52 At the request of: GIRMA DUBOIS Procedure: XR ankle LT min 3V IMAGES REVIEWED: XR ankle LT min 3V COMPARISON: 08/02/2017 x-ray left foot. CLINICAL INDICATION: pain, injury FINDINGS/IMPRESSION: No evidence of acute osseous abnormality of the left ankle. Chronic medial ankle ossicles. Mild tibiotalar osteoarthritis with possible subtle small osteochondral lesion in the medial talar dome on the oblique view. Calcaneal enthesopathy with moderate plantar calcaneal spur. Ankle and dorsal foot soft tissue swelling. Electronically authenticated by: JORGE PALMER Date: 04/04/2024 20:52
[2024-04-04] MEDS: HYDROCODONE/ACET 5-325 MG TABLET 1 TAB PO (19:55)
--- NOTE | 2024-04-04 19:55 | ED_ITS ---
HPI HPI - Extremity Injury (Lower) General Chief Complaint: Extremity Injury, Lower Stated Complaint: Lower Extremity Injury Time Seen by Provider: 04/04/24 19:25 Source: patient and family Mode of arrival: walk-in Limitations: no limitations History of Present Illness HPI Narrative: 48-year-old female presents with complaint of injury to her left ankle. Injury occurred this past Tuesday. States she stepped on it wrong and it twisted inward. Patient complains of pain since then. Locates pain circumferentially around the ankle. Feels like it is all swollen. Denies any other injury, motor or sensory changes, paresthesias. Quality:?Twisting trauma Severity:?Moderate Timing:?As above, constant Context: Normal setting and activity? Modifying factors:?pain worse with palpation, movement Associated symptoms: As above Related Data Home Medications ?Medication ?Instructions ?Recorded ?Confirmed alprazolam 0.5 mg tablet 0.5 mg PO TID PRN anxiety 06/21/23 06/21/23 amitriptyline 50 mg tablet 50 mg PO QPM 06/21/23 06/21/23 benazepril 20 mg tablet 20 mg PO DAILY 06/21/23 06/21/23 dextroamphetamine-amphetamine ER 15 mg PO DAILY 06/21/23 06/21/23 15 mg 24hr capsule,extend release gabapentin 300 mg capsule 300 mg PO QPM 06/21/23 06/21/23 levothyroxine 100 mcg tablet 100 mcg PO QAM 06/21/23 06/21/23 metoprolol tartrate 50 mg tablet 75 mg PO BID 06/21/23 06/21/23 mirabegron 50 mg tablet,extended 50 mg PO DAILY 06/21/23 06/21/23 release 24 hr (Myrbetriq) naloxone 4 mg/actuation nasal spray 4 mg intranasal Q2M PRN opioid 06/21/23 06/21/23 overdose omeprazole 40 mg capsule,delayed 40 mg PO DAILY 06/21/23 06/21/23 release oxycodone 20 mg tablet 20 mg PO Q4H PRN pain 06/21/23 06/21/23 oxycodone-acetaminophen 7.5 mg-325 1 tab PO TID PRN pain 06/21/23 06/21/23 mg tablet promethazine 25 mg tablet 25 mg PO TID PRN nausea and 06/21/23 06/21/23 vomiting tizanidine 4 mg tablet 4 mg PO DAILY PRN muscle spasticity 06/21/23 06/21/23 Previous Rx's ?Medication ?Instructions ?Recorded dicyclomine 20 mg tablet 20 mg PO QID PRN abdominal pain 06/21/23 #14 tabs pantoprazole 40 mg tablet,delayed 40 mg PO BID 14 days #28 tabs 06/21/23 release sucralfate 1 gram tablet (Carafate) 1 g PO TID #21 tabs 06/21/23 Allergies Allergy/AdvReac Type Severity Reaction Status Date / Time ciprofloxacin [From Cipro] Allergy Severe Anaphylaxis Verified 04/04/24 19:27 fluoxetine [From Prozac] Allergy Severe Anaphylaxis Verified 04/04/24 19:27 ketorolac [From Toradol] Allergy Severe Anaphylaxis Verified 04/04/24 19:27 ondansetron [From Zofran] Allergy Severe Anaphylaxis Verified 04/04/24 19:27 prochlorperazine Allergy Severe Anaphylaxis Verified 04/04/24 19:27 [From Compazine] solumedrol Allergy Anaphylaxis Uncoded 04/04/24 19:27 Opioid HPI Opioid Management Most Recent Pain and Opioid Data: Last Pain Scale 8 04/04/24 21:43 Review of Systems ROS Constitutional Denies: fatigue or malaise Musculoskeletal Reports: extremity pain, extremity swelling and joint pain Neurological Denies: numbness in extremities or weakness in extremities Endocrine Denies: fatigue PFSH PFSH Social History Smoking status: Heavy tobacco smoker Exam Constitutional Vital Signs, click to edit/add: Last Vital Signs Temp 97.8 F 04/04/24 19:27 Pulse 65 04/04/24 19:27 Resp 20 04/04/24 19:27 Pulse Ox 97 04/04/24 19:27 O2 Del Method Room Air 04/04/24 19:27 Documenting provider has reviewed patient's vital signs: yes Common normals: no apparent distress, oriented x3 and well nourished General appearance: well developed HENMT Common normals: normocephalic and head/scalp atraumatic Head and scalp: normocephalic and atraumatic Cardio Peripheral pulses: dorsalis pedis pulses present bilateral Extremity Other: Left foot and ankle: +tenderness circumferentially throughout the ankle.? Mild swelling. + No tenderness to the foot with particular attention of the fifth metatarsal.? No tenderness to the proximal fibular head. No ecchymosis, discoloration, crepitus, deformity, instability, warmth.? ROM somewhat limited due to pain, but able to perform dorsiflexion, plantarflexion.? Strength 5/5 Neuro Common normals: oriented x3, no focal motor deficits and no sensory deficits noted Psych Common normals: mental status grossly normal and thought process normal Thought process: normal thought process Course Vital Signs Vital signs: Vital Signs Temperature 97.8 F 04/04/24 19:27 Pulse Rate 65 04/04/24 19:27 Respiratory Rate 20 04/04/24 19:27 Pulse Oximetry 97 04/04/24 19:27 Oxygen Delivery Method Room Air 04/04/24 19:27 Temperature 97.8 F 04/04/24 19:27 Pulse Rate 65 04/04/24 19:27 Respiratory Rate 20 04/04/24 19:27 Pulse Oximetry 97 04/04/24 19:27 Oxygen Delivery Method Room Air 04/04/24 19:27 MDM - Extremity Injury (Lower) MDM Narrative Medical decision making narrative: This is a pleasant 48-year-old female who presents to the emergency department for evaluation of left ankle injury. On arrival, afebrile, vital signs are stable. On exam, nontoxic, well-appearing patient in no distress. She demonstrates some mild, increased swelling to her left ankle with associated circumferential tenderness. Denies any tenderness of the foot with particular attention to the fifth metatarsal. No proximal fibular head tenderness. Range of motion is somewhat reduced due to the pain and swelling. Neurovascularly intact. X-ray imaging, per radiologist reveals chronic changes, no acute fracture. Favor left ankle sprain Fracture, dislocation less likely based on imaging Patient wrapped in Dany wrap. Patient states she cannot tolerate crutches due to her weight. OARRS reviewed showing multiple, monthly Percocet prescriptions. Unable to provide narcotic prescription because of this for her pain. States that her doctor has, fired her. Patient informed that due to the multiple prescriptions, still cannot provide narcotic prescription. Recommend conservative therapy. We will refer her to foot and ankle specialist. Patient was agreeable with this. Recommend Tylenol/Motrin for pain, swelling as well as RICE therapy. Disposition ? The patient was discharged. Plan: Patient will be discharged to home. Condition at time of disposition: stable ? Advised to follow up with primary provider. Advised to return for any worsening and/or development of new, concerning signs or symptoms PLEASE NOTE: Portions of the medical record may have been produced using electronic environmental officer and may contain errors with respect to translation of words which may not have been identified prior to finalization of the chart. Medical Records Attestation: I reviewed the patient's medical records. Imaging Data left ankle xray: Attestation: I have reviewed the pertinent imaging results. Radiologist's impression: Procedure: XR ankle LT min 3V IMAGES REVIEWED: XR ankle LT min 3V COMPARISON: 08/02/2017 x-ray left foot. CLINICAL INDICATION: pain, injury FINDINGS/IMPRESSION: No evidence of acute osseous abnormality of the left ankle. Chronic medial ankle ossicles. Mild tibiotalar osteoarthritis with possible subtle small osteochondral lesion in the medial talar dome on the oblique view. Calcaneal enthesopathy with moderate plantar calcaneal spur. Ankle and dorsal foot soft tissue swelling. Discharge Plan Discharge Stand Alone Forms: Portal Instructions Chief Complaint: Extremity Injury, Lower Clinical Impression: Acute left ankle pain Left ankle sprain Qualifiers: Encounter type: initial encounter Involved ligament of ankle: unspecified ligament Qualified Code(s): S93.402A - Sprain of unspecified ligament of left ankle, initial encounter Patient Disposition: Home, Self-Care Time of Disposition Decision: 21:28 Condition: Good Mode of Transportation: Private Vehicle Prescriptions / Home Meds: No Action alprazolam 0.5 mg tablet 0.5 mg PO TID PRN (Reason: anxiety) amitriptyline 50 mg tablet 50 mg PO QPM benazepril 20 mg tablet 20 mg PO DAILY dextroamphetamine-amphetamine 15 mg capsule,extended release 24hr 15 mg PO DAILY gabapentin 300 mg capsule 300 mg PO QPM levothyroxine 100 mcg tablet 100 mcg PO QAM metoprolol tartrate 50 mg tablet 75 mg PO BID Myrbetriq 50 mg tablet extended release 24 hr 50 mg PO DAILY naloxone 4 mg/actuation spray,non-aerosol 4 mg INTRANASAL Q2M PRN (Reason: opioid overdose) omeprazole 40 mg capsule,delayed release(DR/EC) 40 mg PO DAILY oxycodone 20 mg tablet 20 mg PO Q4H PRN (Reason: pain) oxycodone-acetaminophen 7.5-325 mg tablet 1 tab PO TID PRN (Reason: pain) promethazine 25 mg tablet 25 mg PO TID PRN (Reason: nausea and vomiting) tizanidine 4 mg tablet 4 mg PO DAILY PRN (Reason: muscle spasticity) sucralfate [Carafate] 1 gram tablet 1 g PO TID Qty: 21 0RF pantoprazole 40 mg tablet,delayed release (DR/EC) 40 mg PO BID 14 Days Qty: 28 0RF dicyclomine 20 mg tablet 20 mg PO QID PRN (Reason: abdominal pain) Qty: 14 0RF Print Language: Albanian Instructions: Ankle Sprain (ED), P.R.I.C.E. Treatment (ED) Referrals: Teofilo Knowles DPM [Physician] - 04/06/24 Discharge Date/Time: 04/04/24 21:59
[2024-04-04] MEDS: OXYCODONE HCL/ACETAMINOPHEN 5MG/325MG 1 TAB PO (21:43)
== END 2024-04-04 21:59 | disposition home or self-care (01) ==
PROVIDERS: Emergency Provider Internal Medicine
DX: S93.402A Sprain of unspecified ligament of left ankle, initial encounter (principal); M25.572 Pain in left ankle and joints of left foot; X50.1XXA Overexertion from prolonged static or awkward postures, initial encounter; F17.200 Nicotine dependence, unspecified, uncomplicated
CPT/HCPCS: 73610; 99283

== ENCOUNTER 2024-04-11 15:28 | Outpatient (OUT) | payer OTHER, SELFPAY ==
--- NOTE | 2024-04-11 | XR_ITS ---
The [address] [address] Patient Name: FERN JAY MRN: [id number] date: 1975 Sex: F Assigned Patient Location: Current Patient Location: Accession/Order Number: [id number] Exam Date: 04/11/2024 15:30 Report Date: 04/11/2024 19:07 At the request of: WHITLEY JANE Procedure: XR ankle LT min 3V EXAM: XR ankle LT min 3V HISTORY: LEFT ANKLE PAIN COMPARISON: 04/04/2024 TECHNIQUE: 3 views of the left ankle were obtained. FINDINGS: Remote bony fragmentation is seen at the tip of the medial malleolus. There is no evidence of an acute fracture or dislocation. The mortise is intact. A very small osteochondral injury is seen along the medial talar dome, which is unchanged. The subtalar joints are intact. Osteophytes arise from the posterior calcaneus. Rather prominent soft tissue swelling is seen diffusely about the lower leg and ankle and foot. XR/XR ankle LT min 3V IMPRESSION: No acute fracture or dislocation. Remote fracture fragments are seen at the tip of the medial malleolus. The joint spaces are relatively intact. Prominent soft tissue swelling is noted diffusely. The overall appearance is unchanged. Electronically authenticated by: WHITLEY CONNELLY Date: 04/11/2024 19:07
== END 2024-04-11 15:29 | disposition home or self-care (01) ==
LOC: EC 15:28
PROVIDERS: Visit Provider Podiatrist Foot & Ankle Surgery
DX: M25.572 Pain in left ankle and joints of left foot (principal)
CPT/HCPCS: 73610

== ENCOUNTER 2025-01-08 13:12 | Emergency (ER) | payer OTHER, SELFPAY ==
[2025-01-08] VITALS (14 sets, daily range): BP systolic 167–181; BP diastolic 67–79; PULSE 53–64; TEMP 36.9; O2SAT 93–97; BMI 73.8
--- NOTE | 2025-01-08 13:32 | ECG_ITS ---
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
--- NOTE | 2025-01-08 13:33 | ED_ITS ---
HPI - SOB/Dyspnea General Chief Complaint: Shortness of Breath/Dyspnea Stated Complaint: COUGH SOB CHEST PAIN Time Seen by Provider: 01/08/25 13:17 Source: patient Mode of arrival: walk-in History of Present Illness HPI Narrative: 49 year old female presents to the ED for cough, fatigue, body aches, SOB, chest discomfort with cough. Onset was one week ago. Denies fever, chills, N/V/D. Reports poor appetite, poor oral intake. Reports concern for dehydration. Related Data Home Medications ?Medication ?Instructions ?Recorded ?Confirmed alprazolam 0.5 mg tablet 0.5 mg PO TID PRN anxiety 06/21/23 06/21/23 amitriptyline 50 mg tablet 50 mg PO QPM 06/21/23 06/21/23 benazepril 20 mg tablet 20 mg PO DAILY 06/21/23 06/21/23 dextroamphetamine-amphetamine ER 15 mg PO DAILY 06/21/23 06/21/23 15 mg 24hr capsule,extend release gabapentin 300 mg capsule 300 mg PO QPM 06/21/23 06/21/23 levothyroxine 100 mcg tablet 100 mcg PO QAM 06/21/23 06/21/23 metoprolol tartrate 50 mg tablet 75 mg PO BID 06/21/23 06/21/23 mirabegron 50 mg tablet,extended 50 mg PO DAILY 06/21/23 06/21/23 release 24 hr (Myrbetriq) naloxone 4 mg/actuation nasal spray 4 mg intranasal Q2M PRN opioid 06/21/23 06/21/23 overdose omeprazole 40 mg capsule,delayed 40 mg PO DAILY 06/21/23 06/21/23 release oxycodone 20 mg tablet 20 mg PO Q4H PRN pain 06/21/23 06/21/23 oxycodone-acetaminophen 7.5 mg-325 1 tab PO TID PRN pain 06/21/23 06/21/23 mg tablet promethazine 25 mg tablet 25 mg PO TID PRN nausea and 06/21/23 06/21/23 vomiting tizanidine 4 mg tablet 4 mg PO DAILY PRN muscle spasticity 06/21/23 06/21/23 Previous Rx's ?Medication ?Instructions ?Recorded dicyclomine 20 mg tablet 20 mg PO QID PRN abdominal pain 06/21/23 #14 tabs pantoprazole 40 mg tablet,delayed 40 mg PO BID 14 days #28 tabs 06/21/23 release sucralfate 1 gram tablet (Carafate) 1 g PO TID #21 tabs 06/21/23 benzonatate 100 mg capsule 100 mg PO TID PRN cough #20 caps 01/08/25 prednisone 10 mg tablet See Rx Instructions .Route 01/08/25 .COMPLEX #30 tabs Allergies Allergy/AdvReac Type Severity Reaction Status Date / Time ciprofloxacin (From Cipro) Allergy Severe Anaphylaxis Verified 01/08/25 13:17 fluoxetine (From Prozac) Allergy Severe Anaphylaxis Verified 01/08/25 13:17 ketorolac (From Toradol) Allergy Severe Anaphylaxis Verified 01/08/25 13:17 prochlorperazine (From Allergy Severe Anaphylaxis Verified 01/08/25 13:17 Compazine) solumedrol Allergy Anaphylaxis Uncoded 01/08/25 13:17 Review of Systems ROS Constitutional Reports: fatigue; Denies: fever or chills Ears, nose, mouth, and throat Reports: nasal congestion; Denies: throat pain, neck pain, ear pain or nasal discharge Cardiovascular Denies: chest pain Respiratory Reports: shortness of breath and cough Gastrointestinal Denies: abdominal pain, nausea, vomiting or diarrhea Musculoskeletal Denies: back pain Integumentary/Breast Denies: rash Neurological Denies: headache or weakness in extremities PFSH PFSH Social History Smoking status: Heavy tobacco smoker Little interest or pleasure in doing things: not at all Feeling down, depressed, or hopeless: not at all Exam Constitutional Vital Signs, click to edit/add: Last Vital Signs Temp 98.5 F 01/08/25 13:17 Pulse 60 01/08/25 14:51 Resp 15 01/08/25 14:50 BP 181/79 H 01/08/25 13:31 Pulse Ox 94 L 01/08/25 14:51 O2 Del Method Room Air 01/08/25 14:51 Common normals: no apparent distress and oriented x3 General appearance: cooperative [facility] Common normals: external ears normal Face and sinus: normal facial exam Nose: no nasal discharge Mouth: oral and palatal mucosa normal, lip normal and tongue normal Throat: posterior oropharynx normal Eye Common normals: PERRL and conjunctivae normal Chest Chest: symmetrical chest wall rise Respiratory Common normals: normal respiratory effort and clear to auscultation bilaterally Effort & inspection: able to speak in complete sentences and symmetric chest movement Cardio Common normals: regular rate and regular rhythm Neuro Common normals: oriented x3 and moves all extremities Sensorium/orientation: awake and alert Course Vital Signs Vital signs: Vital Signs Temperature 98.5 F 01/08/25 13:17 Pulse Rate 64 01/08/25 13:17 Respiratory Rate 20 01/08/25 13:17 Blood Pressure 179/67 H 01/08/25 13:17 Pulse Oximetry 97 01/08/25 13:17 Oxygen Delivery Method Room Air 01/08/25 13:17 Temperature 98.5 F 01/08/25 13:17 Pulse Rate 60 01/08/25 14:51 Respiratory Rate 15 01/08/25 14:50 Blood Pressure 181/79 H 01/08/25 13:31 Pulse Oximetry 94 L 01/08/25 14:51 Oxygen Delivery Method Room Air 01/08/25 14:51 MDM - SOB/Dyspnea MDM Narrative Medical decision making narrative: Covid-19 and influenza were negative. CBC and BMP were unremarkable. Chest x-ray showed no acute findings. Findings were discussed with the patient. The patient reported she tolerates prednisone. She has an albuterol inhaler at home. Prescriptions were provided for prednisone and tessalon perles. Follow up with pcp for a recheck, further evaluation and treatment. Medical Records Attestation: I reviewed the patient's medical records. Lab Data Attestation: I reviewed the patient's lab results. Labs: Lab Results 01/08/25 01/08/25 Range/Units 13:43 13:49 WBC 9.8 (4.0-11.0) 10^3/uL RBC 5.19 (4.20-5.40) 10^6/uL Hgb 13.5 (12.0-16.0) g/dL Hct 42.0 (36.0-48.0) % MCV 80.9 L (81.0-99.0) fL MCH 26.0 L (26.7-34.0) pg MCHC 32.1 (29.9-35.2) g/dL RDW 15.2 H (11.0-15.0) % Plt Count 280 (150-450) 10^3/uL MPV 8.6 L (9.5-13.5) fL Neut % (Auto) 66.0 (43.0-75.0) % Lymph % (Auto) 27.6 (20.5-60.0) % [place] % (Auto) 5.1 (1.7-12.0) % Eos % (Auto) 0.8 L (0.9-7.0) % Baso % (Auto) 0.2 (0.2-2.0) % Neut # (Auto) 6.5 (1.4-6.5) 10^3/uL Lymph # (Auto) 2.7 (1.2-3.8) 10^3/uL [place] # (Auto) 0.5 (0.3-0.8) 10^3/uL Eos # (Auto) 0.1 (0.0-0.7) 10^3/uL Baso # (Auto) 0.0 (0.0-0.1) 10^3/uL Abs Immat Gran (auto) 0.03 (0.00-0.03) 10^3/uL Imm/Tot Granulo (auto) 0.3 (0.0-0.5) % Sodium 138 (136-145) mmol/L Potassium 4.4 (3.5-5.1) mmol/L Chloride 103 (98-107) mmol/L Carbon Dioxide 28.0 (21.0-32.0) mmol/L Anion Gap 11.4 BUN 18.0 (7.0-18.0) mg/dL Creatinine 0.71 (0.55-1.02) mg/dL Est GFR ( Amer) >60 (>=60 mL/min/1.73m^2) Est GFR (Non-Af Amer) >60 (>=60 mL/min/1.73m^2) BUN/Creatinine Ratio 25.4 Glucose 101 (74-106) mg/dL Calcium 8.8 (8.5-10.1) mg/dL Influenza Type A Ag Negative Influenza Type B Ag Negative SARS-CoV-2 Ag (CV2AG) Negative (NEGATIVE) Imaging Data Chest x-ray: Attestation: I have reviewed the pertinent imaging results. Radiologist's impression: No acute process ECG Data Attestation: ?I have reviewed the pertinent ECG results. (EKG was reviewed by the attending physician. It showed sinus rhythm at a rate of 54. No STEMI.) Interpretation: Measurements Intervals [place] Rate: 54 P: 41 [place]: 172 QRS: 39 QRSD: 84 T: 56 QT: 404 QTc: 391 Interpretive Statements 1100 Sinus rhythm 3114 Cannot rule out anterior myocardial infarction, age undetermined 8102 Low QRS voltage in chest leads 9150 abnormal ECG No previous ECG available for comparison Discharge Plan Discharge Chief Complaint: Shortness of Breath/Dyspnea Clinical Impression: URI (upper respiratory infection) Patient Disposition: Home, Self-Care Time of Disposition Decision: 15:11 Condition: Good Mode of Transportation: Private Vehicle Prescriptions / Home Meds: New prednisone 10 mg tablet See Rx Instructions .ROUTE .COMPLEX Qty: 30 0RF Rx Instructions: Take 5 tablets on days 1-2, 4 tabs on days 3-4, 3 tabs on days 5-6, 2 tabs on days 7-8, 1 tab on days 9-10. benzonatate 100 mg capsule 100 mg PO TID PRN (Reason: cough) Qty: 20 0RF No Action alprazolam 0.5 mg tablet 0.5 mg PO TID PRN (Reason: anxiety) amitriptyline 50 mg tablet 50 mg PO QPM benazepril 20 mg tablet 20 mg PO DAILY dextroamphetamine-amphetamine 15 mg capsule,extended release 24hr 15 mg PO DAILY gabapentin 300 mg capsule 300 mg PO QPM levothyroxine 100 mcg tablet 100 mcg PO QAM metoprolol tartrate 50 mg tablet 75 mg PO BID Myrbetriq 50 mg tablet extended release 24 hr 50 mg PO DAILY naloxone 4 mg/actuation spray,non-aerosol 4 mg INTRANASAL Q2M PRN (Reason: opioid overdose) omeprazole 40 mg capsule,delayed release(DR/EC) 40 mg PO DAILY oxycodone 20 mg tablet 20 mg PO Q4H PRN (Reason: pain) oxycodone-acetaminophen 7.5-325 mg tablet 1 tab PO TID PRN (Reason: pain) promethazine 25 mg tablet 25 mg PO TID PRN (Reason: nausea and vomiting) tizanidine 4 mg tablet 4 mg PO DAILY PRN (Reason: muscle spasticity) sucralfate [Carafate] 1 gram tablet 1 g PO TID Qty: 21 0RF pantoprazole 40 mg tablet,delayed release (DR/EC) 40 mg PO BID 14 Days Qty: 28 0RF dicyclomine 20 mg tablet 20 mg PO QID PRN (Reason: abdominal pain) Qty: 14 0RF Print Language: Polish Instructions: Upper Respiratory Infection (ED), Viral Syndrome (ED) Additional Instructions: Return to the ER for worsening symptoms. Referrals: Sydnee Quesada [Primary Care Provider] - 1 week
[2025-01-08 13:54] LABS: Basophils Percent Auto 0.2 % (0.2-2.0); Eosinophils Absolute Auto 0.1 10^3/uL (0.0-0.7); Eosinophils Percent Auto 0.8 % (0.9-7.0); Hemoglobin 13.5 g/dL (12.0-16.0); Immature Granulocytes Abs Auto 0.03 10^3/uL (0.00-0.03); Immature Granulocytes Pct Auto 0.3 % (0.0-0.5); Lymphocytes Absolute Auto 2.7 10^3/uL (1.2-3.8); Lymphocytes Percent Auto 27.6 % (20.5-60.0); Mean Corpuscular HGB Conc 32.1 g/dL (29.9-35.2); Mean Corpuscular Volume 80.9 fL (81.0-99.0); Mean Platelet Volume 8.6 fL (9.5-13.5); Monocytes Absolute Auto 0.5 10^3/uL (0.3-0.8); Monocytes Percent Auto 5.1 % (1.7-12.0); Neutrophils Absolute Auto 6.5 10^3/uL (1.4-6.5); Platelet Count 280 10^3/uL (150-450); Red Blood Count 5.19 10^6/uL (4.20-5.40); Red Cell Distribution Width 15.2 % (11.0-15.0); White Blood Count 9.8 10^3/uL (4.0-11.0)
[2025-01-08 14:05] LABS: Influenza Virus A Antigen Negative; Influenza Virus B Antigen Negative; Internal Control Within Normal Limits
[2025-01-08 14:06] LABS: Internal Control Within Normal Limits; SARS-CoV-2 Ag NEGATIVE (NEGATIVE)
[2025-01-08 14:16] LABS: Anion Gap 11.4; BUN Creatinine Ratio 25.4; Calcium 8.8 mg/dL (8.5-10.1); Chloride 103 mmol/L (98-107); Estimated GFR (African America >60 (>=60 mL/min/1.73m^2); Estimated GFR (Non-African Ame >60 (>=60 mL/min/1.73m^2); Glucose 101 mg/dL (74-106); Potassium 4.4 mmol/L (3.5-5.1); Sodium 138 mmol/L (136-145)
[2025-01-08] MEDS: ALBUTEROL SULFATE 2.5 MG/3 ML VIAL NEB IH (14:51)
== END 2025-01-08 15:29 | disposition home or self-care (01) ==
PROVIDERS: Nurse Practitioner Family; Emergency Provider Emergency Medicine; PCP Nurse Practitioner Family
DX: J06.9 Acute upper respiratory infection, unspecified (principal); F17.200 Nicotine dependence, unspecified, uncomplicated
CPT/HCPCS: 36415; 71045; 80048; 85025; 87804; 87811; 93005; 94640; 99285